=== PATIENT | female | born 1935 | race American Indian/Alaskan Native ===

== ENCOUNTER 2016-09-18 16:28 | Inpatient (IN) | payer MEDICARE ==
--- NOTE | 2016-09-18 17:09 | Emergency Department Report ---
HPI - General Chief Complaint: Dyspnea/Respdistress Time Seen by Provider: 09/18/16 17:01 - HPI HPI: This is a 81-year-old -[place] female who presents to the emergency department from home via EMS with complaint of a one-week history of swelling that is gotten progressively worse from the legs heading up towards the abdomen and chest, as well as a three-day history of some shortness of breath. The patient has a history of CHF, aortic valve replacement, pacemaker, and blindness. She went to see her primary care doctor at [facility], Dr. Tiffanie Davis, and had a chest x-ray done and her Lasix increased. However she has not gotten any improvement. She denies any chest pain, fever, back pain, nausea , vomiting or diaphoresis. She sees [facility] cardiology. No recent travel or sick contacts at home. ED Past Medical Hx - Past Medical History Previous Medical History?: Yes Hx Hypertension: Yes Hx Congestive Heart Failure: Yes Additional medical history: legally blind - Surgical History Past Surgical History?: Yes Hx Pacemaker: Yes Additional Surgical History: valve replacement - Social History Smoking Status: Current Every Day Smoker Substance Use Type: None - Medications Home Medications: Home Medications Medication Instructions Recorded Confirmed Last Taken Type Aspirin [Aspirin BABY CHEW TAB] 81 mg PO QDAY 09/18/16 09/18/16 Unknown History Brimonidine/Timolol 0.2-0.5% 1 drops OP Q12H 09/18/16 09/18/16 Unknown History [Combigan 0.2-0.5%] Carvedilol [Coreg] 6.25 mg PO BID 09/18/16 09/18/16 Unknown History Digoxin 125 mcg PO QDAY 09/18/16 09/18/16 Unknown History Furosemide [Lasix TAB] 60 mg PO QPM 09/18/16 09/18/16 Unknown History Furosemide [Lasix TAB] 80 mg PO QAM 09/18/16 09/18/16 Unknown History Losartan [Cozaar] 100 mg PO QDAY 09/18/16 09/18/16 Unknown History Omeprazole 20 mg PO QDAY 09/18/16 09/18/16 Unknown History Potassium Chloride 10 meq PO QDAY 09/18/16 09/18/16 Unknown History Rosuvastatin Calcium 20 mg PO QDAY 09/18/16 09/18/16 Unknown History amLODIPine [Norvasc] 10 mg PO DAILY 09/18/16 09/18/16 Unknown History hydrALAZINE [Apresoline] 50 mg PO BID 09/18/16 09/18/16 Unknown History ED Review of Systems ROS: Stated complaint: ANANYA Other details as noted in HPI Comment: All other systems reviewed and negative Constitutional: denies: chills, fever Eyes: denies: eye pain, eye discharge, vision change ENT: denies: ear pain, throat pain Respiratory: shortness of breath, SOB with exertion Cardiovascular: edema. denies: palpitations Gastrointestinal: denies: nausea, vomiting Genitourinary: denies: urgency, dysuria, discharge Musculoskeletal: denies: back pain, joint swelling, arthralgia Skin: denies: rash, lesions Neurological: denies: headache, weakness, paresthesias Physical Exam - Physical Exam Vital Signs: Vital Signs 09/18/16 16:35 Temperature 98.4 F Pulse Rate 70 Respiratory 27 H Rate O2 Sat by Pulse 94 Oximetry Physical Exam: GENERAL: The patient is well-developed well-nourished. HEENT: Normocephalic. Atraumatic. Extraocular motions are intact. Patient has moist mucous membranes. NECK: Supple. Trachea is midline. CHEST/LUNGS: Coarse breath sounds throughout the chest. Mild tachypnea but no accessory muscle use. There is no respiratory distress noted. HEART/CARDIOVASCULAR: Regular. There is no tachycardia. There is no gallop rub or murmur. ABDOMEN: Abdomen is soft, nontender. Patient has normal bowel sounds. There is no abdominal distention. SKIN: Skin is warm and dry. 2+ pitting edema to the bilateral lower extremities. Some nonpitting edema to the abdomen. NEURO: The patient is awake, alert, and oriented. The patient is cooperative. The patient has no focal neurologic deficits. The patient has normal speech. MUSCULOSKELETAL: There is no tenderness or deformity. There is no limitation range of motion. There is no evidence of acute injury. ED Course Vital Signs 09/18/16 16:35 Temperature 98.4 F Pulse Rate 70 Respiratory 27 H Rate O2 Sat by Pulse 94 Oximetry ED Medical Decision Making - Lab Data Result diagrams: 09/18/16 17:14 09/18/16 17:14 - EKG Data -: EKG Interpreted by Me - EKG Data When compared to previous EKG there are: previous EKG unavailable Interpretation: other (pacemaker, wide QRS with fusion complexes, nonspecific interventricular block, nonspecific ST-T changes) - Radiology Data Radiology results: image reviewed interpreted by me: Chest x-ray shows moderate cardiomegaly, sternotomy wires seen midline, pulmonary vascular congestion and left basilar pleural effusion - Medical Decision Making 81-year-old female presents with 1 week of progressively worsening swelling for the lower extremities headed upwards. She also has a few days of shortness of breath. She appears to be in CHF. She is volume overloaded. Chest x-ray shows cardiomegaly and some pleural effusions and pulmonary vascular congestion. Patient has some renal insufficiency, mild hyperkalemia, BNP of greater than 35,000 and an elevated troponin. Troponin elevation and level of the BNP may be secondary to the renal insufficiency. Patient started on Lasix for diuresis. She'll be admitted to hospital for continued diuresis and possible cardio consultation. She's been accepted for admission by the hospitalist, Dr. Latham. - Differential Diagnosis CHF, IL, pneumonia, venous stasis Critical Care Time: No Critical care attestation.: If time is entered above; I have spent that time in minutes in the direct care of this critically ill patient, excluding procedure time. ED Disposition Clinical Impression: SOB (shortness of breath), Renal insufficiency, Hyperkalemia CHF (congestive heart failure) Qualifiers: Congestive heart failure type: unspecified congestive heart failure type Congestive heart failure chronicity: unspecified congestive heart failure chronicity Qualified Code(s): I50.9 - Heart failure, unspecified Edema Qualifiers: Edema type: unspecified Qualified Code(s): R60.9 - Edema, unspecified Disposition: OP ADMITTED IP TO THIS HOSP Is pt being admited?: Yes Condition: Stable Referrals: EDVIN BARBOZA [Other] - 3-5 Days Time of Disposition: 19:11
[2016-09-18 17:40] LABS: Basophils % (Auto) 1.9 % (0.0-1.8); Eosinophils % (Auto) 2.6 % (0.0-4.3); Mean Corpuscular HGB Conc 29 % (30-34); Mean Corpuscular Volume 81 fl (79-97); Platelet Count 162 K/mm3 (140-440); Red Cell Distribution Width 19.3 % (13.2-15.2); White Blood Count 5.9 K/mm3 (4.5-11.0)
[2016-09-18 17:41] LABS: Hematocrit 37.1 % (30.3-42.9); Hemoglobin 10.9 gm/dl (10.1-14.3); Mean Corpuscular Hemoglobin 24 pg (28-32)
[2016-09-18 17:48] LABS: Anion Gap 15 mmol/L; Blood Urea Nitrogen 23 mg/dL (7-17); Calcium 8.4 mg/dL (8.4-10.2); Carbon Dioxide 29 mmol/L (22-30); Chloride 108.6 mmol/L (98-107); Glucose 97 mg/dL (65-100); Potassium 5.4 mmol/L (3.6-5.0); Sodium 147 mmol/L (137-145)
[2016-09-18 17:50] LABS: Albumin 3.2 g/dL (3.9-5); Bilirubin,Total 0.5 mg/dL (0.1-1.2); Total Protein 6.5 g/dL (6.3-8.2)
[2016-09-18 17:55] LABS: Bilirubin,Direct 0.2 mg/dL (0-0.2); Bilirubin,Indirect 0.3 mg/dL
[2016-09-18] MEDS ORDERED: BABY ASPIRIN PO ONE (17:56)
[2016-09-18] MEDS ORDERED: LASIX 80 MG in NACL 0.9% 50 ML IV ONE (17:56)
[2016-09-18] MEDS ORDERED: LASIX IV ONE (18:12)
[2016-09-18 18:16] LABS: Bilirubin,Urine NEG (Negative); Blood,Urine NEG (Negative); Ketones,Urine NEG (Negative); Leukocyte Esterase,Urine NEG (Negative); Mucus,Urine FEW /HPF; Nitrite,Urine NEG (Negative); Protein,Urine <15 mg/dL mg/dL (Negative); RBC,Urine < 1.0 /HPF (0.0-6.0); Urobilinogen,Urine < 2.0 mg/dL (<2.0); WBC,Urine < 1.0 /HPF (0.0-6.0)
[2016-09-18 18:25] LABS: Cholesterol 112 mg/dL (50-199); HDL Cholesterol 58 mg/dL (40-59); LDL Cholesterol,Direct 37 mg/dL (50-130); Triglycerides 89 mg/dL (2-149)
--- NOTE | 2016-09-18 19:46 | History and Physical Report ---
History of Present Illness Date of examination: 09/18/16 Date of admission: 09/18/16 Chief complaint: SOB for 1 week History of present illness: Chief complaint: Increasing shortness of breath for 1 week. History of present illness: 81-year-old -[place] female with history of hypertension congestive heart failure valve replacement has been having increasing shortness of breath for 1 week. Patient saw her PMD who increased her Lasix to 80 mg twice a day for couple days and then decrease it to 60 mg twice a day. In spite of the increase in Lasix patient has been getting more and more short of breath. Also shortness of breath on minimal exertion and on lying down. No paroxysmal nocturnal dyspnea. No chest pain. Patient continues to smoke. Patient is blind. No fever no chills. Past History Past Medical History: CAD, GERD, heart failure, hypertension, hyperlipidemia Past Surgical History: Other (valve replacement) Social history: lives with family, smoking (half a pack a day), full code Family history: hypertension Medications and Allergies Allergies Allergy/AdvReac Type Severity Reaction Status Date / Time Sulfa (Sulfonamide Allergy Anaphylaxis Verified 09/18/16 16:46 Antibiotics) Home Medications Medication Instructions Recorded Confirmed Last Taken Type Aspirin [Aspirin BABY CHEW TAB] 81 mg PO QDAY 09/18/16 09/18/16 Unknown History Brimonidine/Timolol 0.2-0.5% 1 drops OP Q12H 09/18/16 09/18/16 Unknown History [Combigan 0.2-0.5%] Carvedilol [Coreg] 6.25 mg PO BID 09/18/16 09/18/16 Unknown History Digoxin 125 mcg PO QDAY 09/18/16 09/18/16 Unknown History Furosemide [Lasix TAB] 60 mg PO QPM 09/18/16 09/18/16 Unknown History Furosemide [Lasix TAB] 80 mg PO QAM 09/18/16 09/18/16 Unknown History Losartan [Cozaar] 100 mg PO QDAY 09/18/16 09/18/16 Unknown History Omeprazole 20 mg PO QDAY 09/18/16 09/18/16 Unknown History Potassium Chloride 10 meq PO QDAY 09/18/16 09/18/16 Unknown History Rosuvastatin Calcium 20 mg PO QDAY 09/18/16 09/18/16 Unknown History amLODIPine [Norvasc] 10 mg PO DAILY 09/18/16 09/18/16 Unknown History hydrALAZINE [Apresoline] 50 mg PO BID 09/18/16 09/18/16 Unknown History Active Meds: Active Medications Heparin Sodium (Porcine) (Heparin) 5,000 unit SUB-Q Q12HR RAJWINDER Review of Systems Constitutional: no weight loss, no weight gain Ears, nose, mouth and throat: no sore throat, no odynophagia Breasts: deferred Cardiovascular: orthopnea, edema, shortness of breath, dyspnea on exertion, leg edema, no chest pain, no paroxysmal nocturnal dyspnea Respiratory: shortness of breath, dyspnea on exertion, congestion, no cough with sputum Gastrointestinal: no nausea, no vomiting, no diarrhea Genitourinary Female: no urinary frequency, no urgency, no stress incontinence, no post void dribbling, no urge incontinence Menstruation: ammenorrhea Musculoskeletal: no neck stiffness, no neck pain Integumentary: no rash, no pruritis, no redness Neurological: no seizures, no syncope Psychiatric: no anxiety Endocrine: no cold intolerance, no heat intolerance Hematologic/Lymphatic: no easy bruising, no easy bleeding Allergic/Immunologic: no urticaria, no allergic rhinitis, no wheezing Exam - Constitutional Vitals: Temp Pulse Resp BP Pulse Ox 98.4 F 67 22 137/69 98 09/18/16 16:35 09/18/16 19:10 09/18/16 19:10 09/18/16 19:10 09/18/16 19:10 General appearance: Present: no acute distress, well-nourished - EENT Eyes: Present: PERRL ENT: hearing intact, clear oral mucosa - Neck Neck: Present: supple, normal ROM - Respiratory Respiratory effort: normal Respiratory: bilateral: CTA, rales - Cardiovascular Rhythm: regular Heart Sounds: Present: S1 & S2. Absent: rub, click - Extremities Extremities: pulses symmetrical, No edema Extremity abnormal: edema (bilateral pedal edema present 3+.) Peripheral Pulses: within normal limits - Abdominal General gastrointestinal: Present: soft, non-tender, non-distended, normal bowel sounds Female genitourinary: Present: normal - Integumentary Integumentary: Present: clear, warm, dry - Musculoskeletal Musculoskeletal: gait normal, strength equal bilaterally - Psychiatric Psychiatric: appropriate mood/affect, intact judgment & insight - Neurologic Neurologic: CNII-XII intact, moves all extremities - Allied Health Allied health notes reviewed: nursing Results - Labs CBC & Chem 7: 09/18/16 17:14 09/18/16 17:14 Labs: Laboratory Last Values WBC 5.9 K/mm3 (4.5-11.0) 09/18/16 17:14 RBC 4.60 M/mm3 (3.65-5.03) 09/18/16 17:14 Hgb 10.9 gm/dl (10.1-14.3) 09/18/16 17:14 Hct 37.1 % (30.3-42.9) 09/18/16 17:14 MCV 81 fl (79-97) 09/18/16 17:14 MCH 24 pg (28-32) L 09/18/16 17:14 MCHC 29 % (30-34) L 09/18/16 17:14 RDW 19.3 % (13.2-15.2) H 09/18/16 17:14 Plt Count 162 K/mm3 (140-440) 09/18/16 17:14 Lymph % (Auto) 29.2 % (13.4-35.0) 09/18/16 17:14 [place] % (Auto) 15.8 % (0.0-7.3) H 09/18/16 17:14 Eos % (Auto) 2.6 % (0.0-4.3) 09/18/16 17:14 Baso % (Auto) 1.9 % (0.0-1.8) H 09/18/16 17:14 Lymph # 1.7 K/mm3 (1.2-5.4) 09/18/16 17:14 [place] # 0.9 K/mm3 (0.0-0.8) H 09/18/16 17:14 Eos # 0.2 K/mm3 (0.0-0.4) 09/18/16 17:14 Baso # 0.1 K/mm3 (0.0-0.1) 09/18/16 17:14 Seg Neutrophils % 50.5 % (40.0-70.0) 09/18/16 17:14 Seg Neutrophils # 3.0 K/mm3 (1.8-7.7) 03/12/17 17:14 Sodium 147 mmol/L (137-145) H 09/18/16 17:14 Potassium 5.4 mmol/L (3.6-5.0) H 09/18/16 17:14 Chloride 108.6 mmol/L (98-107) H 09/18/16 17:14 Carbon Dioxide 29 mmol/L (22-30) 09/18/16 17:14 Anion Gap 15 mmol/L 09/18/16 17:14 BUN 23 mg/dL (7-17) H 09/18/16 17:14 Creatinine 2.3 mg/dL (0.7-1.2) H 09/18/16 17:14 Estimated GFR 25 ml/min 09/18/16 17:14 BUN/Creatinine Ratio 10.00 % 09/18/16 17:14 Glucose 97 mg/dL (65-100) 09/18/16 17:14 Calcium 8.4 mg/dL (8.4-10.2) 09/18/16 17:14 Total Bilirubin 0.5 mg/dL (0.1-1.2) 09/18/16 17:14 Direct Bilirubin 0.2 mg/dL (0-0.2) 09/18/16 17:14 Indirect Bilirubin 0.3 mg/dL 09/18/16 17:14 AST 14 units/L (5-40) 09/18/16 17:14 ALT 7 units/L (7-56) 09/18/16 17:14 Alkaline Phosphatase 45 units/L (35-129) 09/18/16 17:14 Troponin T 0.139 ng/mL (0.00-0.029) H* 09/18/16 17:14 NT-Pro-B Natriuret Pep > 83411 pg/mL (0-900) H 09/18/16 17:14 Total Protein 6.5 g/dL (6.3-8.2) 09/18/16 17:14 Albumin 3.2 g/dL (3.9-5) L 09/18/16 17:14 Albumin/Globulin Ratio 1.0 % 09/18/16 17:14 Triglycerides 89 mg/dL (2-149) 09/18/16 17:14 Cholesterol 112 mg/dL (50-199) 09/18/16 17:14 LDL Cholesterol Direct 37 mg/dL (50-130) L 09/18/16 17:14 HDL Cholesterol 58 mg/dL (40-59) 09/18/16 17:14 Cholesterol/HDL Ratio 1.93 % 09/18/16 17:14 Urine Color Yellow (Yellow) 09/18/16 18:05 Urine Turbidity Slightly-cloudy (Clear) 09/18/16 18:05 Urine pH 5.0 (5.0-7.0) 09/18/16 18:05 Ur Specific Agness 1.008 (1.003-1.030) 09/18/16 18:05 Urine Protein <15 mg/dl mg/dL (Negative) 09/18/16 18:05 Urine Glucose (UA) Neg mg/dL (Negative) 09/18/16 18:05 Urine Ketones Neg mg/dL (Negative) 09/18/16 18:05 Urine Blood Neg (Negative) 09/18/16 18:05 Urine Nitrite Neg (Negative) 09/18/16 18:05 Urine Bilirubin Neg (Negative) 09/18/16 18:05 Urine Urobilinogen < 2.0 mg/dL (<2.0) 09/18/16 18:05 Ur Leukocyte Esterase Neg (Negative) 09/18/16 18:05 Urine WBC (Auto) < 1.0 /HPF (0.0-6.0) 09/18/16 18:05 Urine RBC (Auto) < 1.0 /HPF (0.0-6.0) 09/18/16 18:05 U Epithel Cells (Auto) < 1.0 /HPF (0-13.0) 09/18/16 18:05 Urine Mucus Few /HPF 09/18/16 18:05 Short CBC 09/18/16 Range/Units 17:14 WBC 5.9 (4.5-11.0) K/mm3 Hgb 10.9 (10.1-14.3) gm/dl Hct 37.1 (30.3-42.9) % Plt Count 162 (140-440) K/mm3 BMP 09/18/16 17:14 Sodium 147 H Potassium 5.4 H Chloride 108.6 H Carbon Dioxide 29 BUN 23 H Creatinine 2.3 H Glucose 97 Calcium 8.4 Cardiac Enzymes 09/18/16 Range/Units 17:14 Troponin T 0.139 H* (0.00-0.029) ng/mL Liver Function 09/18/16 Range/Units 17:14 Total Bilirubin 0.5 (0.1-1.2) mg/dL Direct Bilirubin 0.2 (0-0.2) mg/dL AST 14 (5-40) units/L ALT 7 (7-56) units/L Alkaline Phosphatase 45 (35-129) units/L Albumin 3.2 L (3.9-5) g/dL Urine 09/18/16 Range/Units 18:05 Urine Color Yellow (Yellow) Urine pH 5.0 (5.0-7.0) Ur Specific [place] 1.008 (1.003-1.030) Urine Protein <15 mg/dl (Negative) mg/dL Urine Glucose (UA) Neg (Negative) mg/dL - Imaging and Cardiology EKG: report reviewed Chest x-ray: report reviewed (chest x-ray consistent with congestive heart failure pulmonary vascular congestion.) Assessment and Plan Advance Directives: Yes (full code) VTE prophylaxis?: Chemical Plan of care discussed with patient/family: Yes - Patient Problems (1) Acute exacerbation of CHF (congestive heart failure) Current Visit: Yes Status: Acute Qualifiers: Congestive heart failure type: combined Qualified Code(s): I50.43 - Acute on chronic combined systolic (congestive) and diastolic (congestive) heart failure Plan to address problem: Echocardiogram ordered for LV function and valve function. Lasix IV 80 mg every 12 started. Patient already has high sodium level of 147 and BUN and creatinine are also elevated. We will defer to battery wrecker operator to optimize the Lasix dosage. Also a renal consultation to address the creatinine of 2.3. Potassium level is high. Because of the increased Lasix dose of 80 mg IV every 12 hours I have added KCl 20 mEq. Recheck the potassium level and decrease of potassium supplement if necessary (2) Hyperkalemia Current Visit: Yes Status: Acute Plan to address problem: Patient is on Lasix IV 80 mg every 12 hours. That should correct the potassium level. We will decrease the KCl 20 mEq every 12 if necessary. (3) Renal insufficiency Current Visit: Yes Status: Acute Plan to address problem: Renal consultation. (4) Hypertension Current Visit: Yes Status: Chronic Qualifiers: Hypertension type: essential hypertension Qualified Code(s): I10 - Essential (primary) hypertension Plan to address problem: Continue her antihypertensives. Blood pressure under good control. We will adjust the medication if necessary. (5) Hypernatremia Current Visit: Yes Status: Acute Plan to address problem: Will decrease the Lasix dose once symptoms are improved in Couple of days. (6) Elevated troponin level Current Visit: Yes Status: Acute Plan to address problem: Secondary to renal insufficiency. No stress test at this point. (7) DVT prophylaxis Current Visit: Yes Status: Acute Plan to address problem: patient on Lovenox 40 mg subcutaneous daily.
[2016-09-18] MEDS ORDERED: ZOFRAN IV PRN (19:56)
[2016-09-18] MEDS ORDERED: PERCOCET 5/325 PO PRN (19:56)
[2016-09-18] MEDS ORDERED: TYLENOL PO PRN (19:56)
[2016-09-18] MEDS ORDERED: DULCOLAX PR PRN (19:56)
[2016-09-18] MEDS ORDERED: DILAUDID IV PRN (19:56)
[2016-09-18] MEDS ORDERED: MILK OF MAGNESIA PO PRN (19:56)
[2016-09-18] MEDS ORDERED: NON-FORMULARY (Potassium Chloride [Potassium Chloride] 20 MEQ) PO SCH (20:15)
[2016-09-18] MEDS ORDERED: NON-FORMULARY (Losartan [Cozaar] 100 MG) PO SCH (20:15)
[2016-09-18] MEDS: BABY ASPIRIN PO SCH (21:30)
[2016-09-18] MEDS ORDERED: HEPARIN SUB-Q SCH (22:00)
[2016-09-18] MEDS ORDERED: PEPCID PO SCH (22:00)
[2016-09-18] MEDS: LANOXIN PO SCH (22:49)
[2016-09-18] MEDS: COZAAR PO SCH (22:50)
[2016-09-18] MEDS: PEPCID PO SCH (22:50)
[2016-09-18] MEDS: COREG PO SCH (22:51)
[2016-09-18] MEDS: NORVASC PO SCH (22:52)
[2016-09-18] MEDS: APRESOLINE PO SCH (22:52)
[2016-09-18] MEDS: COMBIGAN 0.2-0.5% OU SCH (22:52)
[2016-09-19] MEDS: LASIX IV SCH ×2 (05:13→18:23)
[2016-09-19 06:00] LABS: Eosinophils % (Auto) 1.4 % (0.0-4.3); Mean Corpuscular HGB Conc 29 % (30-34); Mean Corpuscular Volume 80 fl (79-97); Platelet Count 158 K/mm3 (140-440); Red Blood Count 4.43 M/mm3 (3.65-5.03); Red Cell Distribution Width 19.5 % (13.2-15.2); White Blood Count 6.3 K/mm3 (4.5-11.0)
[2016-09-19] MEDS ORDERED: LASIX IV SCH (06:00)
[2016-09-19 06:02] LABS: Hematocrit 34.1 % (30.3-42.9); Hemoglobin 10.3 gm/dl (10.1-14.3); Mean Corpuscular Hemoglobin 23 pg (28-32)
[2016-09-19 06:23] LABS: Albumin 2.9 g/dL (3.9-5); BUN/Creatinine Ratio 10.43; Bilirubin,Total 0.6 mg/dL (0.1-1.2); Calcium 8.1 mg/dL (8.4-10.2); Chloride 105.8 mmol/L (98-107); Potassium 4.6 mmol/L (3.6-5.0); Total Protein 5.8 g/dL (6.3-8.2)
--- NOTE | 2016-09-19 08:51 | Consultation ---
History of Present Illness Consult date: 09/19/16 Requesting physician: MISHEL KOVACS Consult reason: congestive heart failure History of present illness: The patient is an 81 year old female who is followed by Dr. Kauffman in the office with a history of chronic systolic heart failure, mitral and tricuspid valve repair (2012), SSS s/p pacemaker, hypertension who presented with complaints of worsening shortness of breath, dyspnea on exertion and lower extremity edema over the past one week. She states that he PCP recently increased her lasix but she did not see an improvement in her symptoms. She denies any chest pain, palpitations, nausea, vomiting or diaphoresis. Troponin level is mildly elevated. BNP > 74359. BUN 23 with a creatinine of 2.4. Echo done 07/2014 showed EF 25-30%, diastolic dysfunction. Past History Past Medical History: heart failure, hypertension, hyperlipidemia, other (SSS s/ p pacemaker) Past Surgical History: Other (mitral and tricuspid valve repair (2012), pacemaker implantation ) Social history: lives with family, smoking (half a pack a day), full code. denies: alcohol abuse, prescription drug abuse, IV drug use Family history: hypertension Medications and Allergies Allergies Allergy/AdvReac Type Severity Reaction Status Date / Time Sulfa (Sulfonamide Allergy Anaphylaxis Verified 09/18/16 16:46 Antibiotics) Home Medications Medication Instructions Recorded Confirmed Last Taken Type Aspirin [Aspirin BABY CHEW TAB] 81 mg PO QDAY 09/18/16 09/18/16 Unknown History Brimonidine/Timolol 0.2-0.5% 1 drops OP Q12H 09/18/16 09/18/16 Unknown History [Combigan 0.2-0.5%] Carvedilol [Coreg] 6.25 mg PO BID 09/18/16 09/18/16 Unknown History Digoxin 125 mcg PO QDAY 09/18/16 09/18/16 Unknown History Furosemide [Lasix TAB] 60 mg PO QPM 09/18/16 09/18/16 Unknown History Furosemide [Lasix TAB] 80 mg PO QAM 09/18/16 09/18/16 Unknown History Losartan [Cozaar] 100 mg PO QDAY 09/18/16 09/18/16 Unknown History Omeprazole 20 mg PO QDAY 09/18/16 09/18/16 Unknown History Potassium Chloride 10 meq PO QDAY 09/18/16 09/18/16 Unknown History Rosuvastatin Calcium 20 mg PO QDAY 09/18/16 09/18/16 Unknown History amLODIPine [Norvasc] 10 mg PO DAILY 09/18/16 09/18/16 Unknown History hydrALAZINE [Apresoline] 50 mg PO BID 09/18/16 09/18/16 Unknown History Active Meds: Active Medications Acetaminophen (Tylenol) 650 mg PO Q4H PRN PRN Reason: Pain MILD(1-3)/Fever >100.5/GURROLA Amlodipine Besylate (Norvasc) 10 mg PO DAILY [facility] Last Admin: 09/18/16 22:52 Dose: 10 mg Aspirin (Baby Aspirin) 81 mg PO QDAY [facility] Last Admin: 09/18/16 21:30 Dose: Not Given Atorvastatin Calcium (Lipitor) 40 mg PO QHS [facility] Last Admin: 09/18/16 22:50 Dose: 40 mg Bisacodyl (Dulcolax) 10 mg [place] QDAY PRN PRN Reason: Constipation unrelieved by MOM Brimonidine/Timolol (Combigan 0.2-0.5%) 1 drops OU Q12HR [facility] Last Admin: 09/18/16 22:52 Dose: Not Given Carvedilol (Coreg) 6.25 mg PO BID [facility] Last Admin: 09/18/16 22:51 Dose: 6.25 mg Digoxin (Lanoxin) 0.125 mg PO QDAY [facility] Last Admin: 09/18/16 22:49 Dose: 0.125 mg Enoxaparin Sodium (Lovenox) 30 mg SUB-Q QDAY [facility] Famotidine (Pepcid) 10 mg PO BID [facility] Last Admin: 09/18/16 22:50 Dose: 10 mg Furosemide (Lasix) 80 mg IV 0600,1800 [facility] Last Admin: 09/19/16 05:13 Dose: 80 mg Hydralazine HCl (Apresoline) 50 mg PO BID [facility] Last Admin: 09/18/16 22:52 Dose: 50 mg Hydromorphone HCl (Dilaudid) 0.5 mg IV Q3H PRN PRN Reason: Pain , Severe (7-10) Losartan Potassium (Cozaar) 100 mg PO QDAY [facility] Last Admin: 09/18/16 22:50 Dose: 100 mg Magnesium Hydroxide (Milk Of Magnesia) 30 ml PO Q4H PRN PRN Reason: Constipation Ondansetron HCl (Zofran) 4 mg IV Q8H PRN PRN Reason: N/V unrelieved by Reglan Oxycodone/Acetaminophen (Percocet 5/325) 1 tab PO Q6H PRN PRN Reason: Pain, Moderate (4-6) Review of Systems Constitutional: no fever, no chills Ears, nose, mouth and throat: no nasal congestion, no nasal discharge, no sinus pressure Cardiovascular: orthopnea, shortness of breath, dyspnea on exertion, leg edema, no chest pain, no palpitations Respiratory: shortness of breath, dyspnea on exertion, no cough, no congestion, no wheezing Gastrointestinal: no abdominal pain, no nausea, no vomiting, no diarrhea, no melena Genitourinary Female: no dysuria, no urgency Musculoskeletal: no neck stiffness, no neck pain, no myalgias Integumentary: no rash, no pruritis Neurological: no parathesias, no numbness, no tingling, no headaches Endocrine: no cold intolerance, no heat intolerance Hematologic/Lymphatic: no easy bruising, no easy bleeding Allergic/Immunologic: no urticaria, no wheezing Physical Examination Last Vital Signs Temp 97.6 F 09/19/16 12:16 Pulse 80 09/19/16 12:16 Resp 18 09/19/16 12:16 BP 119/69 09/19/16 12:16 Pulse Ox 100 09/19/16 12:16 General appearance: no acute distress HEENT: Positive: Normocephaly, Mucus Membranes Moist Neck: Positive: neck supple, trachea midline Cardiac: Positive: Reg Rate and Rhythm, S1/S2 Lungs: Positive: clear to auscultation Neuro: Positive: Grossly Intact Abdomen: Positive: Soft, Active Bowel Sounds. Negative: Tender Skin: Positive: Clear. Negative: Rash Extremities: Present: +2 Edema Results 09/19/16 05:09 09/19/16 05:09 Cardiac Enzymes 09/19/16 Range/Units 05:09 AST 11 (5-40) units/L CBC 09/19/16 Range/Units 05:09 WBC 6.3 (4.5-11.0) K/mm3 RBC 4.43 (3.65-5.03) M/mm3 Hgb 10.3 (10.1-14.3) gm/dl Hct 34.1 (30.3-42.9) % Plt Count 158 (140-440) K/mm3 Lymph # 1.8 (1.2-5.4) K/mm3 [place] # 0.9 H (0.0-0.8) K/mm3 Eos # 0.1 (0.0-0.4) K/mm3 Baso # 0.1 (0.0-0.1) K/mm3 Comprehensive Metabolic Panel 09/19/16 Range/Units 05:09 Sodium 145 (137-145) mmol/L Potassium 4.6 (3.6-5.0) mmol/L Chloride 105.8 (98-107) mmol/L Carbon Dioxide 29 (22-30) mmol/L BUN 24 H (7-17) mg/dL Creatinine 2.3 H (0.7-1.2) mg/dL Glucose 78 (65-100) mg/dL Calcium 8.1 L (8.4-10.2) mg/dL AST 11 (5-40) units/L ALT 6 L (7-56) units/L Alkaline Phosphatase 41 (35-129) units/L Total Protein 5.8 L (6.3-8.2) g/dL Albumin 2.9 L (3.9-5) g/dL - Imaging and Cardiology Echo: pending EKG: image reviewed EKG interpretations - Telemetry EKG Rhythm: Paced Pacemaker: ventricular pacing w/capt Assessment and Plan Acute on chronic systolic heart failure Echo 07/2014: EF 25-30%, diastolic dysfunction, await repeat continue IV lasix, coreg, losartan Elevated troponin no chest pain likely due to decompensated HF/renal insufficiency Hx. of mitral and tricuspid valve repair (2012) Acute on chronic kidney failure cautious diuresis monitor renal indices await nephrology evaluation SSS s/p pacemaker (2012) Hypertension Tobacco abuse Await echo findings. Continue current management and close monitoring of volume status and renal indices. The patient has been seen in conjunction with Dr. Ruiz who agrees with the assessment and plan of care.
--- NOTE | 2016-09-19 09:22 | XRay Report ---
PORTABLE CHEST INDICATION: Shortness of breath. COMPARISON: 02/19/2013 FINDINGS: Portable, frontal chest radiograph again demonstrates mild to moderate cardiomegaly, sternotomy wires, prosthetic heart valve and left sided pacemaker with dual chamber leads. Left midlung horizontal atelectasis or scarring again noted as also mild fluid or thickening along the right minor fissure. Slight increased lung markings centrally. Poor left lower lung penetration as well with subtle underlying consolidation or fluid now not entirely excluded. Left hemidiaphragm not well-seen. No large right pleural effusion. EKG leads. Demineralized bones with few degenerative changes. CONCLUSION: Slight increased lung markings centrally, possibly technical versus early congestive. Various other findings again seen, as described above. Please correlate. Thank you for the opportunity to participate in this patient's care.
[2016-09-19] MEDS ORDERED: NON-FORMULARY (Rosuvastatin Calcium [Rosuvastatin Calcium] 20 MG) PO SCH (10:00)
[2016-09-19] MEDS ORDERED: NON-FORMULARY (Omeprazole [Omeprazole] 20 MG) PO SCH (10:00)
[2016-09-19] MEDS ORDERED: LOVENOX SUB-Q SCH (10:00)
--- NOTE | 2016-09-19 12:18 | Admit Criteria Form ---
Admission Criteria Documentation: HEART FAILURE: COMMON COMPLICATIONS Clinical Indications for Inpatient Care (Place 'X' for any and all applicable criteria): Ongoing inpatient care may be indicated for heart failure with ANY ONE of the following (1)(2)(3)(4)(5): [ ]I. Ongoing need for care for primary condition requiring frequent therapy adjustments because of changes in cardiac function (eg, drug dosage changes for drugs that are renally metabolized) [ ]II. New-onset heart failure [ ]III. Heart failure with decreased urine output not responsive to attempts to optimize volume status [ ]IV. Acute cardiac ischemia causing or associated with failure [X]V. Complications of heart failure, including ANY ONE of the following: [ ]a) Pericardial effusion [ ]b) Symptomatic pleural effusion [ ]c) O2 saturation <90% or PO2 < 60 mm Hg (8.0 kPa) on room air or require baseline supplemental O2 [ ]d) Tachypnea [ ]e) Dyspnea [ ]f) Syncope [ ]g) Change in mental status [ ]h) Acute renal insufficiency that is severe (reduction of more than 50% in estimated glomerular filtration rate from baseline) or progressive reduction of more than 25% in estimated glomerular filtration rate from baseline, with creatinine continuing to rise) [ ]i) Hemodynamic instability [X]j) Anasarca [ ]k) Clinically significant metabolic abnormalities due to heart failure (eg, new-onset metabolic acidosis) Extended stay beyond goal length of stay for primary condition may be needed until ALL of the following are present(1)(3): [ ]a) Stable and effective diuretic regimen established (or patient on stable dialysis regimen if in chronic renal failure) [ ]b) Breathing comfortably at rest [ ]c) Saturation of arterial oxygen greater than 90% or at acceptable baseline [ ]d) Pulmonary edema absent or improved [ ]e) Hemodynamic stability [ ]f) Volume status acceptable on oral medication [ ]g) Peripheral or sacral edema absent or improved [ ]h) Renal function stable and manageable at a lower level of care [ ]i) Complications (eg, pleural effusion) resolved or manageable at a lower level of care [ ]j) Patient or caregiver has received written discharge instructions or educational material addressing activity level, diet, discharge medications, follow-up appointment, weight monitoring, and what to do if symptoms worsen The original [employer] [facility] content created by [facility] has been revised. The portions of the content which have been revised are identified through the use of italic text or in bold, and [facility] has neither reviewed nor approved the modified material.All other unmodified content is copyright [facility]. Please see references footnoted in the original [facility] edition 2016 Admission Criteria Met: Yes
[2016-09-19 12:47] LABS: Creatine Kinase MB 2.6 ng/mL (0.0-4.0)
[2016-09-19] MEDS: COZAAR PO SCH (14:09)
--- NOTE | 2016-09-19 14:09 | Progress Note ---
Assessment and Plan Assessment and plan: Patient is a pleasant 81-year-old -E[place] female with history of hypertension congestive heart failure valve replacement has been having increasing shortness of breath for 1 week. She increased her Lasix to 80 mg twice daily for couple of days and then saw her PMD who then decrease it to 60 mg twice a day. In spite of the increase in Lasix patient has been getting more and more short of breath. Also shortness of breath on minimal exertion and on lying down. No paroxysmal nocturnal dyspnea. No chest pain. Patient continues to smoke. Patient is blind. No fever no chills. * Acute on chronic systolic congestive heart failure. Last echo in 2014 shows EF of 25-30% * Hyperkalemia * Acute kidney injury likely secondary to visible to nephropathy present on admission * Hypertension * Hypernatremia * Elevated troponin likely secondary to decompensated heart failure and renal insufficiency * Sick sinus syndrome status post pacemaker * Tobacco abuse extensive counseling provided to the patient admitted to quit. Plan * Continue inpatient care, cardiology input noted. We'll continue IV lasix, coreg, losartan * Monitor potassium closely and ensure correction. * Await nephrology consultation. * I discussed with nursing staff to get patient out of bed to chair she does ambulate with a cane if need be we'll get physical therapy consultation. * Monitor sodium * DVT and GI prophylaxis * Plan of care discussed with the patient in detail she verbalizes understanding * No family member present and bed side History Interval history: Follow-up shortness of breath Patient seen and examined this morning in no acute distress, reports improvement in her shortness of breath but not yet at baseline. Denies any chest pain, nausea, vomiting, diarrhea No fever noted blood pressure controlled No adverse events reported to me by nursing staff Hospitalist Physical - Physical exam Narrative exam: VITAL SIGNS: Reviewed. GENERAL: The patient appeared well nourished and normally developed. Vital signs as documented. HEAD: No signs of head trauma. EYES: Pupils are equal. Extraocular motions intact. EARS: Hearing grossly intact. MOUTH: Oropharynx is normal. NECK: No adenopathy, no JVD. CHEST: Chest with crackles breath sounds bilaterally. No wheezes. CARDIAC: Regular rate and rhythm. S1 and S2, without murmurs, gallops, or rubs. VASCULAR: 1+ pitting Edema. Peripheral pulses normal and equal in all extremities. ABDOMEN: Soft, without detectable tenderness. No sign of distention. No rebound or guarding, and no masses palpated. Bowel Sounds normal. MUSCULOSKELETAL: Moving all extremities.. Extremities without clubbing, cyanosis and 1+ pitting edema noted bilateral lower extremity NEUROLOGIC EXAM: Alert and oriented x 3. No focal sensory or strength deficits. Speech normal. Follows commands. Ambulates with a cane PSYCHIATRIC: Mood normal. SKIN: No rash or lesions. - Constitutional Vitals: Temp Pulse Resp BP Pulse Ox 97.6 F 80 18 119/69 100 09/19/16 12:16 09/19/16 12:16 09/19/16 12:16 09/19/16 12:16 09/19/16 12:16 General appearance: Present: no acute distress Results - Labs CBC & Chem 7: 09/19/16 05:09 09/19/16 05:09 Labs: Laboratory Last Values WBC 6.3 K/mm3 (4.5-11.0) 09/19/16 05:09 RBC 4.43 M/mm3 (3.65-5.03) 09/19/16 05:09 Hgb 10.3 gm/dl (10.1-14.3) 09/19/16 05:09 Hct 34.1 % (30.3-42.9) 09/19/16 05:09 MCV 80 fl (79-97) 09/19/16 05:09 MCH 23 pg (28-32) L 09/19/16 05:09 MCHC 29 % (30-34) L 09/19/16 05:09 RDW 19.5 % (13.2-15.2) H 09/19/16 05:09 Plt Count 158 K/mm3 (140-440) 09/19/16 05:09 Lymph % (Auto) 29.3 % (13.4-35.0) 09/19/16 05:09 Rabun % (Auto) 14.7 % (0.0-7.3) H 09/19/16 05:09 Eos % (Auto) 1.4 % (0.0-4.3) 09/19/16 05:09 Baso % (Auto) 1.0 % (0.0-1.8) 09/19/16 05:09 Lymph # 1.8 K/mm3 (1.2-5.4) 09/19/16 05:09 Rabun # 0.9 K/mm3 (0.0-0.8) H 09/19/16 05:09 Eos # 0.1 K/mm3 (0.0-0.4) 09/19/16 05:09 Baso # 0.1 K/mm3 (0.0-0.1) 09/19/16 05:09 Seg Neutrophils % 53.6 % (40.0-70.0) 09/19/16 05:09 Seg Neutrophils # 3.4 K/mm3 (1.8-7.7) 09/19/16 05:09 Sodium 145 mmol/L (137-145) 09/19/16 05:09 Potassium 4.6 mmol/L (3.6-5.0) 09/19/16 05:09 Chloride 105.8 mmol/L (98-107) 09/19/16 05:09 Carbon Dioxide 29 mmol/L (22-30) 09/19/16 05:09 Anion Gap 15 mmol/L 09/19/16 05:09 BUN 24 mg/dL (7-17) H 09/19/16 05:09 Creatinine 2.3 mg/dL (0.7-1.2) H 09/19/16 05:09 Estimated GFR 25 ml/min 09/19/16 05:09 BUN/Creatinine Ratio 10.43 % 09/19/16 05:09 Glucose 78 mg/dL (65-100) 09/19/16 05:09 Hemoglobin A1c 5.9 % (4-6) 09/18/16 17:14 Calcium 8.1 mg/dL (8.4-10.2) L 09/19/16 05:09 Total Bilirubin 0.6 mg/dL (0.1-1.2) 09/19/16 05:09 Direct Bilirubin 0.2 mg/dL (0-0.2) 09/18/16 17:14 Indirect Bilirubin 0.3 mg/dL 09/18/16 17:14 AST 11 units/L (5-40) 09/19/16 05:09 ALT 6 units/L (7-56) L 09/19/16 05:09 Alkaline Phosphatase 41 units/L (35-129) 09/19/16 05:09 Total Creatine Kinase 74 units/L (30-135) 09/19/16 11:58 CK-MB (CK-2) 2.6 ng/mL (0.0-4.0) 09/19/16 11:58 CK-MB (CK-2) Rel Index 3.5 (0-4) 09/19/16 11:58 Troponin T 0.114 ng/mL (0.00-0.029) H* 09/19/16 11:58 NT-Pro-B Natriuret Pep > 38393 pg/mL (0-900) H 09/18/16 17:14 Total Protein 5.8 g/dL (6.3-8.2) L 09/19/16 05:09 Albumin 2.9 g/dL (3.9-5) L 09/19/16 05:09 Albumin/Globulin Ratio 1.0 % 09/19/16 05:09 Triglycerides 89 mg/dL (2-149) 09/18/16 17:14 Cholesterol 112 mg/dL (50-199) 09/18/16 17:14 LDL Cholesterol Direct 37 mg/dL (50-130) L 09/18/16 17:14 HDL Cholesterol 58 mg/dL (40-59) 09/18/16 17:14 Cholesterol/HDL Ratio 1.93 % 09/18/16 17:14 Urine Color Yellow (Yellow) 09/18/16 18:05 Urine Turbidity Slightly-cloudy (Clear) 09/18/16 18:05 Urine pH 5.0 (5.0-7.0) 09/18/16 18:05 Ur Specific [place] 1.008 (1.003-1.030) 09/18/16 18:05 Urine Protein <15 mg/dl mg/dL (Negative) 09/18/16 18:05 Urine Glucose (UA) Neg mg/dL (Negative) 09/18/16 18:05 Urine Ketones Neg mg/dL (Negative) 09/18/16 18:05 Urine Blood Neg (Negative) 09/18/16 18:05 Urine Nitrite Neg (Negative) 09/18/16 18:05 Urine Bilirubin Neg (Negative) 09/18/16 18:05 Urine Urobilinogen < 2.0 mg/dL (<2.0) 09/18/16 18:05 Ur Leukocyte Esterase Neg (Negative) 09/18/16 18:05 Urine WBC (Auto) < 1.0 /HPF (0.0-6.0) 09/18/16 18:05 Urine RBC (Auto) < 1.0 /HPF (0.0-6.0) 09/18/16 18:05 U Epithel Cells (Auto) < 1.0 /HPF (0-13.0) 09/18/16 18:05 Urine Mucus Few /HPF 09/18/16 18:05 - Imaging and Cardiology Chest x-ray: image reviewed (vascular congestion)
[2016-09-19] MEDS: NORVASC PO SCH (14:10)
[2016-09-19] MEDS: APRESOLINE PO SCH ×2 (14:10→22:41)
[2016-09-19] MEDS: BABY ASPIRIN PO SCH (14:10)
[2016-09-19] MEDS: COREG PO SCH ×2 (14:10→22:40)
[2016-09-19] MEDS: LANOXIN PO SCH (14:10)
[2016-09-19] MEDS: PEPCID PO SCH ×2 (14:10→22:41)
[2016-09-19] MEDS: COMBIGAN 0.2-0.5% OU SCH ×2 (14:10→22:43)
[2016-09-19] MEDS: LOVENOX SUB-Q SCH (16:00)
[2016-09-19 19:17] LABS: Creatine Kinase MB 2.8 ng/mL (0.0-4.0)
[2016-09-20 05:22] LABS: Mean Corpuscular HGB Conc 29 % (30-34); Mean Corpuscular Volume 81 fl (79-97); Platelet Count 152 K/mm3 (140-440); Red Blood Count 4.35 M/mm3 (3.65-5.03); Red Cell Distribution Width 19.4 % (13.2-15.2); White Blood Count 6.6 K/mm3 (4.5-11.0)
[2016-09-20] MEDS: LASIX IV SCH ×2 (05:37→10:48)
[2016-09-20 05:39] LABS: BUN/Creatinine Ratio 11.36; Calcium 8.1 mg/dL (8.4-10.2); Chloride 102.8 mmol/L (98-107)
[2016-09-20 05:49] LABS: Hemoglobin 10.3 gm/dl (10.1-14.3); Mean Corpuscular Hemoglobin 24 pg (28-32)
[2016-09-20 05:51] LABS: Hematocrit 34.3 % (30.3-42.9)
--- NOTE | 2016-09-20 07:12 | Consultation ---
History of Present Illness - Reason for Consult Consult date: 09/20/16 Requesting physician: BRADLY ZAPATA - History of Present Illness 81-year-old -Norwegian female with a history of congestive heart failure, hypertension admitted on account of 1 week history of progressively worsening shortness of breath. Patient also complains of swelling of the extremities and abdominal wall. She denies any cough, sputum or hemoptysis. No wheezing. She denies any dizziness. She admits that she was poorly compliant with her Lasix for some time before the onset of her symptoms. She went to see her primary care physician and Lasix was increased to 80 mg twice daily but symptoms did not improve and so she was brought to the hospital for further evaluation. On further inquiry, she also admits to poor adherence to low sodium diet. 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 denies: alcohol abuse, prescription drug abuse, IV drug use Family history: cancer (Brother of cancer), hypertension, other (father in a motor vehicle accident in his 50s. Mother at age 83 patient does not recall the cause of ) Medications and Allergies Allergies Allergy/AdvReac Type Severity Reaction Status Date / Time Sulfa (Sulfonamide Allergy Anaphylaxis Verified 09/18/16 16:46 Antibiotics) Home Medications Medication Instructions Recorded Confirmed Last Taken Type Aspirin [Aspirin BABY CHEW TAB] 81 mg PO QDAY 09/18/16 09/18/16 Unknown History Brimonidine/Timolol 0.2-0.5% 1 drops OP Q12H 09/18/16 09/18/16 Unknown History [Combigan 0.2-0.5%] Carvedilol [Coreg] 6.25 mg PO BID 09/18/16 09/18/16 Unknown History Digoxin 125 mcg PO QDAY 09/18/16 09/18/16 Unknown History Losartan [Cozaar] 100 mg PO QDAY 09/18/16 09/18/16 Unknown History Omeprazole 20 mg PO QDAY 09/18/16 09/18/16 Unknown History Potassium Chloride 10 meq PO QDAY 09/18/16 09/18/16 Unknown History Rosuvastatin Calcium 20 mg PO QDAY 09/18/16 09/18/16 Unknown History amLODIPine [Norvasc] 10 mg PO DAILY 09/18/16 09/18/16 Unknown History hydrALAZINE [Apresoline TAB] 50 mg PO BID 09/18/16 09/18/16 Unknown History Furosemide [Lasix TAB] 60 mg PO BID #60 tablet 09/20/16 Unknown Rx Active Meds: Active Medications Acetaminophen (Tylenol) 650 mg PO Q4H PRN PRN Reason: Pain MILD(1-3)/Fever >100.5/GURROLA Amlodipine Besylate (Norvasc) 10 mg PO DAILY [facility] Last Admin: 09/19/16 14:10 Dose: 10 mg Aspirin (Baby Aspirin) 81 mg PO QDAY [facility] Last Admin: 09/19/16 14:10 Dose: 81 mg Atorvastatin Calcium (Lipitor) 40 mg PO QHS [facility] Last Admin: 09/19/16 22:41 Dose: 40 mg Bisacodyl (Dulcolax) 10 mg VT QDAY PRN PRN Reason: Constipation unrelieved by MOM Brimonidine/Timolol (Combigan 0.2-0.5%) 1 drops OU Q12HR [facility] Last Admin: 09/19/16 22:43 Dose: 1 drops Carvedilol (Coreg) 6.25 mg PO BID [facility] Last Admin: 09/19/16 22:40 Dose: 6.25 mg Digoxin (Lanoxin) 0.125 mg PO QDAY [facility] Last Admin: 09/19/16 14:10 Dose: 0.125 mg Enoxaparin Sodium (Lovenox) 30 mg SUB-Q QDAY [facility] Last Admin: 09/19/16 16:00 Dose: Not Given Famotidine (Pepcid) 10 mg PO BID [facility] Last Admin: 09/19/16 22:41 Dose: 10 mg Furosemide (Lasix) 80 mg IV 0600,1800 [facility] Last Admin: 09/20/16 05:37 Dose: 80 mg Hydralazine HCl (Apresoline) 50 mg PO BID [facility] Last Admin: 09/19/16 22:41 Dose: 50 mg Hydromorphone HCl (Dilaudid) 0.5 mg IV Q3H PRN PRN Reason: Pain , Severe (7-10) Losartan Potassium (Cozaar) 100 mg PO QDAY [facility] Last Admin: 09/19/16 14:09 Dose: 100 mg Magnesium Hydroxide (Milk Of Magnesia) 30 ml PO Q4H PRN PRN Reason: Constipation Ondansetron HCl (Zofran) 4 mg IV Q8H PRN PRN Reason: N/V unrelieved by Reglan Oxycodone/Acetaminophen (Percocet 5/325) 1 tab PO Q6H PRN PRN Reason: Pain, Moderate (4-6) Review of Systems All systems: negative (Constitutional: no fever or chills. No anorexia or weight loss. HEENT: No sore throat or sinus drainage no hearing or vision impairment . Cardiovascular: See history of present illness. Respiratory: No cough, sputum, shortness of breath, hemoptysis or wheezing. Gastrointestinal: No nausea, vomiting, diarrhea, abdominal pain, hematemesis or melena. Genitourinary: No frequency urgency dysuria or hematuria. hematologic: No abnormal bleeding or bruising. Integumentary: no pruritus or rash. Neurological : No headache no focal weakness or numbness, no syncope or seizures. Endocrine : She admits to cold intolerance. No history of diabetes mellitus Musculoskeletal: No joint pains no stiffness. Psychiatry: no anxiety or depression) Exam - Vital Signs Vital signs: Vital Signs Temp Pulse Resp Pulse Ox 98.4 F 70 27 H 94 09/18/16 16:35 09/18/16 16:35 09/18/16 16:35 09/18/16 16:35 - Physical Exam Narrative exam: Elderly -Norwegian female lying in bed in no acute distress HEENT normocephalic atraumatic, Blind in both eyes Neck supple, no thyromegaly no jugular venous distention CVS S1-S2 regular rate rhythm without murmur, rub or gallop Chest few rhonchi lower zones Abdomen soft nondistended nontender no organomegaly no bruit bowel sounds present Extremities trace edema no cyanosis or clubbing Genitourinary deferred Neuro awake, alert oriented x3 no gross deficit Results - Lab Results 09/20/16 04:53 09/20/16 04:53 Most recent lab results Calcium 8.1 mg/dL (8.4-10.2) L 09/20/16 04:53 Assessment and Plan - Patient Problems (1) Other acute kidney failure Current Visit: Yes Status: Acute Plan to address problem: Unclear if patient has acute kidney injury. If present probably prerenal azotemia secondary to diuresis/acute cardiorenal syndrome. Kidney function remains stable. We'll follow-up as an outpatient on discharge (2) Chronic kidney disease, stage III (moderate) Current Visit: Yes Status: Acute Plan to address problem: Suspect patient has stage III chronic kidney disease. We'll get kidney ultrasound and urinalysis. Further workup of chronic kidney disease as an outpatient. (3) Acute on chronic systolic heart failure Current Visit: Yes Status: Acute Plan to address problem: Agree with intravenous diuretic but decrease the dose to once a day. Probably be able to switch to oral diuretic in the morning. Reinforced importance of adhering to low sodium diet and fluid restriction. Will need early follow-up as an outpatient (4) Hypernatremia Current Visit: Yes Status: Acute Plan to address problem: Sodium improving. We'll follow (5) Anemia in chronic kidney disease Current Visit: Yes Status: Acute Plan to address problem: Follow-up hemoglobin. Check iron stores (6) Hypertensive chronic kidney disease with stage 1 through stage 4 chronic kidney disease, or unspecified chronic kidney disease Current Visit: Yes Status: Acute Plan to address problem: Follow-up blood pressure on current medications (7) Hyperkalemia Current Visit: Yes Status: Acute Plan to address problem: Potassium has improved. Follow-up
--- NOTE | 2016-09-20 09:16 | Ultrasound Report ---
ULTRASOUND RENAL BILATERAL HISTORY: Chronic renal disease with acute renal insufficiency. TECHNIQUE: transabdominal ultrasound with color Doppler interrogation. FINDINGS: The right kidney measures 10.4 x 4.5 x 5.7cm. Right renal cortex: 1.3cm. The left kidney measures 11.2 x 4.8 x 5.5cm. Left renal cortex: 1.6cm. The kidneys are normal size, contour and position. There is increased renal parenchymal echotexture bilaterally. Corticomedullary differentiation is preserved. One cyst in the superior right kidney measures 1 cm. There are 2 cysts in the superior left kidney measuring 2.4 cm and 2.5 cm. No evidence for mass, nephrolithiasis, hydronephrosis or perinephric fluid. The bladder is empty and contains a James catheter IMPRESSION: Renal parenchymal disease. Bilateral simple renal cysts. No evidence for hydronephrosis.
[2016-09-20] MEDS ORDERED: LASIX IV SCH (10:00)
--- NOTE | 2016-09-20 10:10 | Discharge Summary ---
Providers - Providers Date of Admission: 09/18/16 19:07 Date of discharge: 09/20/16 Attending physician: BRADLY ZAPATA MD 09/18/16 19:56 Consult to Physician [CONS] Routine Consulting Provider: AKHIL CERVANTES Reason For Exam: CHF exacerbation Place consult to:: AKHIL CERVANTES Notified:: Carolann from answering service Phone number called:: [phone] Was contact made?: Yes Time called:: 06:57 09/18/16 20:35 Consult to Physician [CONS] Routine Consulting Provider: PATIENCE KEITH Reason For Exam: Renal insufficiency Place consult to:: PATIENCE KEITH Notified:: PATIENCE KEITH Phone number called:: [phone] Hospitalization Reason for admission: CHF Condition: Stable Hospital course: Patient is a pleasant 81-year-old -Eritre[place] female with history of hypertension congestive heart failure valve replacement has been having increasing shortness of breath for 1 week. She increased her Lasix to 80 mg twice daily for couple of days and then saw her PMD who then decrease it to 60 mg twice a day. In spite of the increase in Lasix patient has been getting more and more short of breath. Also shortness of breath on minimal exertion and on lying down. No paroxysmal nocturnal dyspnea. No chest pain. Patient continues to smoke. Patient is blind. No fever no chills. on admission patient was seen by cardiology and nephrology, she was Diuresed with lasix 80mg IV bid with good fluid output, we subsequently transitioned her to daily and then to PO. CHF education including salt management and daily weights were discussed in detail with patient and family. due to rising Troponin patient was sent to have a stress test which was negative and a stable at this time for discharge. She does follow with cardiology and wrinkle chaser. * Acute on chronic systolic congestive heart failure. Last echo in 2014 shows EF of 25-30% * Hyperkalemia * Acute kidney injury and chronic kidney disease stage III likely secondary to visible to nephropathy present on admission * Hypertension * Hypernatremia-resolved * Anemia of chronic disease * Hypertension secondary to chronic kidney disease * Elevated troponin likely secondary to decompensated heart failure and renal insufficiency * Sick sinus syndrome status post pacemaker * Tobacco abuse extensive counseling provided to the patient admitted to quit. Disposition: DC/TX HOME UNDER HOME HEALTH Time spent for discharge: 35 MINS Core Measure Documentation - Palliative Care Palliative Care/ Comfort Measures: Not Applicable - Core Measures Any of the following diagnoses?: heart failure - VTE Discharge Requirements Deep Vein Thrombosis/Pulmonary Embolism Present on Admission: No - Heart Failure Discharge Requirements MARICEL/ARB for LVSD if EF <40%: Yes Beta sukh at discharge: Yes Exam - Physical Exam Narrative exam: VITAL SIGNS: Reviewed. GENERAL: The patient appeared well nourished and normally developed. Vital signs as documented. HEAD: No signs of head trauma. EYES: legally blind EARS: Hearing grossly intact. MOUTH: Oropharynx is normal. NECK: No adenopathy, no JVD. CHEST: Chest with crackles breath sounds bilaterally. No wheezes. CARDIAC: Regular rate and rhythm. S1 and S2, without murmurs, gallops, or rubs. VASCULAR: 1+ pitting Edema. Peripheral pulses normal and equal in all extremities. ABDOMEN: Soft, without detectable tenderness. No sign of distention. No rebound or guarding, and no masses palpated. Bowel Sounds normal. MUSCULOSKELETAL: Moving all extremities.. Extremities without clubbing, cyanosis and 1+ pitting edema noted bilateral lower extremity NEUROLOGIC EXAM: Alert and oriented x 3. No focal sensory or strength deficits. Speech normal. Follows commands. He was able to ambulate yesterday. She cane PSYCHIATRIC: Mood normal. SKIN: No rash or lesions. - Constitutional Vitals: Temp Pulse Resp BP Pulse Ox 98.1 F 64 18 133/63 97 09/20/16 04:00 09/20/16 04:00 09/20/16 04:00 09/20/16 04:00 09/20/16 04:00 Plan Activity: advance as tolerated, fall precautions Diet: low fat, low salt Special Instructions: physical therapy, home health RN Additional Instructions: bmp at cardiology or wrinkle chaser office in 1 week Follow up with: EDVIN BARBOZA [Other] - 3-5 Days HENRIQUE CANNON MD [Staff Physician] - 7 Days CIRILO AUGUST MD [Staff Physician] - 10/07/16 Prescriptions: Furosemide [Lasix TAB] 60 mg PO BID #60 tablet
[2016-09-20] MEDS: LOVENOX SUB-Q SCH (10:46)
[2016-09-20] MEDS: COZAAR PO SCH (10:46)
[2016-09-20] MEDS: COREG PO SCH ×2 (10:46→21:27)
[2016-09-20] MEDS: NORVASC PO SCH (10:47)
[2016-09-20] MEDS: LANOXIN PO SCH (10:47)
[2016-09-20] MEDS: BABY ASPIRIN PO SCH (10:47)
[2016-09-20] MEDS: PEPCID PO SCH ×2 (10:47→21:28)
[2016-09-20] MEDS: APRESOLINE PO SCH ×2 (10:48→21:28)
[2016-09-20] MEDS: COMBIGAN 0.2-0.5% OU SCH ×2 (10:58→21:37)
--- NOTE | 2016-09-20 11:04 | Progress Note ---
Assessment and Plan Acute on chronic systolic heart failure clinically improving Echo 09/2016: EF 30-35%, diastolic dysfunction, moderate MR, moderate TR, RVSP 62mmHg continue lasix, coreg, losartan Elevated troponin, now trending up no chest pain likely due to decompensated HF/renal insufficiency stress test in am Hx. of mitral and tricuspid valve repair (2012) Acute on chronic kidney failure cautious diuresis monitor renal indices per nephrology SSS s/p pacemaker (2012) Hypertension Tobacco abuse Continue current management. Lexiscan thallium stress test in am. The patient has been seen in conjunction with Dr. Ruiz who agrees with the assessment and plan of care. Subjective Date of service: 09/20/16 Principal diagnosis: acute on chronic systolic heart failure, elevated troponin Interval history: The patient is resting in bed. No new complaints. Shortness of breath resolved. Paced rhythm on the monitor. Objective Last Vital Signs Temp 98.1 F 09/20/16 04:00 Pulse 84 09/20/16 10:47 Resp 18 09/20/16 04:00 BP 127/64 09/20/16 10:47 Pulse Ox 97 09/20/16 04:00 - Physical Examination General: No Apparent Distress HEENT: Positive: Normocephaly, Mucus Membranes Moist Neck: Positive: neck supple, trachea midline Cardiac: Positive: Reg Rate and Rhythm, S1/S2 Lungs: Positive: clear to auscultation Neuro: Positive: Grossly Intact Abdomen: Positive: Soft, Active Bowel Sounds. Negative: Tender Skin: Positive: Clear. Negative: Rash Extremities: Present: edema (trace-bilateral lower legs) - Labs and Meds Cardiac Enzymes 09/19/16 09/19/16 Range/Units 11:58 18:29 CK-MB (CK-2) 2.6 2.8 (0.0-4.0) ng/mL CBC 09/20/16 Range/Units 04:53 WBC 6.6 (4.5-11.0) K/mm3 RBC 4.35 (3.65-5.03) M/mm3 Hgb 10.3 (10.1-14.3) gm/dl Hct 34.3 (30.3-42.9) % Plt Count 152 (140-440) K/mm3 Comprehensive Metabolic Panel 09/20/16 Range/Units 04:53 Sodium 144 (137-145) mmol/L Potassium 4.0 (3.6-5.0) mmol/L Chloride 102.8 (98-107) mmol/L Carbon Dioxide 32 H (22-30) mmol/L BUN 25 H (7-17) mg/dL Creatinine 2.2 H (0.7-1.2) mg/dL Glucose 87 (65-100) mg/dL Calcium 8.1 L (8.4-10.2) mg/dL - Imaging and Cardiology EKG: image reviewed Echo: report reviewed (09/2016: EF 30-35%, diastolic dysfunction, moderate MR, moderate TR, RVSP 62mmHg) - Telemetry EKG Rhythm: Paced Pacemaker: ventricular pacing w/capt
--- NOTE | 2016-09-20 11:17 | Query- Renal Failure ---
Jair Beard____Kalee Date:____09/20/16 Music Therapist/CDS:____Jason Benavidesjosé luis Phone#:___[phone] Exercise your independent professional judgment when responding to query. Questions asked do not imply a particular answer is desired or expected. We greatly appreciate your clarification on this issue. Clinical Documentation States: 81 year old female was admitted on 09/18/16. The progress note (09/19/16) states " Acute kidney injury likely secondary to visible to nephropathy present on admission " Clinical Findings Show: Creatinine: 2.3 Please clarify if you mean: Acute Renal Failure with or due to: [ ] Tubular Necrosis [ ] Medullary Necrosis [ ] Vasomotor Nephropathy [ ] Shock Kidney [ ] Tubular Nephrosis [ ] Renal Tubular Stasis [ ] Cortical Necrosis [ ] Acute Renal Failure (unspecified) [ ] Lower Tubular Nephrosis [ ] Other: [ ] Not Applicable Present on Admission: [ ] Yes (Y) [ ] Clinically undeterminable (W) [ ] No (N) Please also document response in your Progress Notes and/or Discharge Summary and indicate if the condition was present on admission. AZEEMD
--- NOTE | 2016-09-20 14:44 | Progress Note ---
Assessment and Plan Assessment and plan: Patient is a pleasant 81-year-old -[place] female with history of hypertension congestive heart failure valve replacement has been having increasing shortness of breath for 1 week. She increased her Lasix to 80 mg twice daily for couple of days and then saw her PMD who then decrease it to 60 mg twice a day. In spite of the increase in Lasix patient has been getting more and more short of breath. Also shortness of breath on minimal exertion and on lying down. No paroxysmal nocturnal dyspnea. No chest pain. Patient continues to smoke. Patient is blind. No fever no chills. * Acute on chronic systolic congestive heart failure. Last echo in 2014 shows EF of 25-30% * Hyperkalemia * Acute kidney injury likely secondary to visible to nephropathy present on admission * Hypertension * Hypernatremia-resolved * Elevated troponin likely secondary to decompensated heart failure and renal insufficiency * Sick sinus syndrome status post pacemaker * Tobacco abuse extensive counseling provided to the patient admitted to quit. Plan * Creatinine remains stable mildly elevated troponin today. We'll plan for stress test in a.m. per cardiology Continue IV lasix, coreg, losartan * Monitor potassium closely and ensure correction. * Nephrology input noted. Discussed with cardiology * I discussed with nursing staff to get patient out of bed to chair she does ambulate with a cane if need be we'll get physical therapy consultation. * Monitor sodium * DVT and GI prophylaxis * DC James catheter * Plan of care discussed with the patient in detail she verbalizes understanding * No family member present and bed side today History Interval history: Follow-up shortness of breath Patient seen and examined this morning in no acute distress, continues to improve with her shortness of breath. Denies any chest pain, nausea, vomiting, diarrhea No fever noted blood pressure controlled No adverse events reported to me by nursing staff Hospitalist Physical - Physical exam Narrative exam: VITAL SIGNS: Reviewed. GENERAL: The patient appeared well nourished and normally developed. Vital signs as documented. HEAD: No signs of head trauma. EYES: Pupils are equal. Extraocular motions intact. EARS: Hearing grossly intact. MOUTH: Oropharynx is normal. NECK: No adenopathy, no JVD. CHEST: Chest with crackles breath sounds bilaterally. No wheezes. CARDIAC: Regular rate and rhythm. S1 and S2, without murmurs, gallops, or rubs. VASCULAR: 1+ pitting Edema. Peripheral pulses normal and equal in all extremities. ABDOMEN: Soft, without detectable tenderness. No sign of distention. No rebound or guarding, and no masses palpated. Bowel Sounds normal. MUSCULOSKELETAL: Moving all extremities.. Extremities without clubbing, cyanosis and 1+ pitting edema noted bilateral lower extremity NEUROLOGIC EXAM: Alert and oriented x 3. No focal sensory or strength deficits. Speech normal. Follows commands. He was able to ambulate yesterday. She cane PSYCHIATRIC: Mood normal. SKIN: No rash or lesions. - Constitutional Vitals: Temp Pulse Resp BP Pulse Ox 98.1 F 84 18 127/64 98 09/20/16 04:00 09/20/16 11:00 09/20/16 11:00 09/20/16 10:47 09/20/16 11:00 General appearance: Present: no acute distress Results - Labs CBC & Chem 7: 09/20/16 04:53 09/20/16 04:53 Labs: Laboratory Last Values WBC 6.6 K/mm3 (4.5-11.0) 09/20/16 04:53 RBC 4.35 M/mm3 (3.65-5.03) 09/20/16 04:53 Hgb 10.3 gm/dl (10.1-14.3) 09/20/16 04:53 Hct 34.3 % (30.3-42.9) 09/20/16 04:53 MCV 81 fl (79-97) 09/20/16 04:53 MCH 24 pg (28-32) L 09/20/16 04:53 MCHC 29 % (30-34) L 09/20/16 04:53 RDW 19.4 % (13.2-15.2) H 09/20/16 04:53 Plt Count 152 K/mm3 (140-440) 09/20/16 04:53 Lymph % (Auto) 29.3 % (13.4-35.0) 09/19/16 05:09 [place] % (Auto) 14.7 % (0.0-7.3) H 09/19/16 05:09 Eos % (Auto) 1.4 % (0.0-4.3) 09/19/16 05:09 Baso % (Auto) 1.0 % (0.0-1.8) 09/19/16 05:09 Lymph # 1.8 K/mm3 (1.2-5.4) 09/19/16 05:09 [place] # 0.9 K/mm3 (0.0-0.8) H 09/19/16 05:09 Eos # 0.1 K/mm3 (0.0-0.4) 09/19/16 05:09 Baso # 0.1 K/mm3 (0.0-0.1) 09/19/16 05:09 Seg Neutrophils % 53.6 % (40.0-70.0) 09/19/16 05:09 Seg Neutrophils # 3.4 K/mm3 (1.8-7.7) 09/19/16 05:09 Sodium 144 mmol/L (137-145) 09/20/16 04:53 Potassium 4.0 mmol/L (3.6-5.0) 09/20/16 04:53 Chloride 102.8 mmol/L (98-107) 09/20/16 04:53 Carbon Dioxide 32 mmol/L (22-30) H 09/20/16 04:53 Anion Gap 13 mmol/L 09/20/16 04:53 BUN 25 mg/dL (7-17) H 09/20/16 04:53 Creatinine 2.2 mg/dL (0.7-1.2) H 09/20/16 04:53 Estimated GFR 26 ml/min 09/20/16 04:53 BUN/Creatinine Ratio 11.36 % 09/20/16 04:53 Glucose 87 mg/dL (65-100) 09/20/16 04:53 Hemoglobin A1c 5.9 % (4-6) 09/18/16 17:14 Calcium 8.1 mg/dL (8.4-10.2) L 09/20/16 04:53 Total Bilirubin 0.6 mg/dL (0.1-1.2) 09/19/16 05:09 Direct Bilirubin 0.2 mg/dL (0-0.2) 09/18/16 17:14 Indirect Bilirubin 0.3 mg/dL 09/18/16 17:14 AST 11 units/L (5-40) 09/19/16 05:09 ALT 6 units/L (7-56) L 09/19/16 05:09 Alkaline Phosphatase 41 units/L (35-129) 09/19/16 05:09 Total Creatine Kinase 83 units/L (30-135) 09/19/16 18:29 CK-MB (CK-2) 2.8 ng/mL (0.0-4.0) 09/19/16 18:29 CK-MB (CK-2) Rel Index 3.3 (0-4) 09/19/16 18:29 Troponin T 0.158 ng/mL (0.00-0.029) H* D 09/19/16 18:29 NT-Pro-B Natriuret Pep > 41095 pg/mL (0-900) H 09/18/16 17:14 Total Protein 5.8 g/dL (6.3-8.2) L 09/19/16 05:09 Albumin 2.9 g/dL (3.9-5) L 09/19/16 05:09 Albumin/Globulin Ratio 1.0 % 09/19/16 05:09 Triglycerides 89 mg/dL (2-149) 09/18/16 17:14 Cholesterol 112 mg/dL (50-199) 09/18/16 17:14 LDL Cholesterol Direct 37 mg/dL (50-130) L 09/18/16 17:14 HDL Cholesterol 58 mg/dL (40-59) 09/18/16 17:14 Cholesterol/HDL Ratio 1.93 % 09/18/16 17:14 Urine Color Yellow (Yellow) 09/18/16 18:05 Urine Turbidity Slightly-cloudy (Clear) 09/18/16 18:05 Urine pH 5.0 (5.0-7.0) 09/18/16 18:05 Ur Specific [place] 1.008 (1.003-1.030) 09/18/16 18:05 Urine Protein <15 mg/dl mg/dL (Negative) 09/18/16 18:05 Urine Glucose (UA) Neg mg/dL (Negative) 09/18/16 18:05 Urine Ketones Neg mg/dL (Negative) 09/18/16 18:05 Urine Blood Neg (Negative) 09/18/16 18:05 Urine Nitrite Neg (Negative) 09/18/16 18:05 Urine Bilirubin Neg (Negative) 09/18/16 18:05 Urine Urobilinogen < 2.0 mg/dL (<2.0) 09/18/16 18:05 Ur Leukocyte Esterase Neg (Negative) 09/18/16 18:05 Urine WBC (Auto) < 1.0 /HPF (0.0-6.0) 09/18/16 18:05 Urine RBC (Auto) < 1.0 /HPF (0.0-6.0) 09/18/16 18:05 U Epithel Cells (Auto) < 1.0 /HPF (0-13.0) 09/18/16 18:05 Urine Mucus Few /HPF 09/18/16 18:05
[2016-09-21 07:39] VITALS: BP 163/66
[2016-09-21] MEDS ORDERED: LEXISCAN IV ONE ×2 (09:13→09:19)
--- NOTE | 2016-09-21 11:01 | Progress Note ---
Assessment and Plan Acute on chronic systolic heart failure clinically improving Echo 09/2016: EF 30-35%, diastolic dysfunction, moderate MR, moderate TR, RVSP 62mmHg continue lasix, coreg, losartan Elevated troponin, now trending up no chest pain likely due to decompensated HF/renal insufficiency await stress test results Hx. of mitral and tricuspid valve repair (2012) Acute on chronic kidney failure cautious diuresis monitor renal indices per nephrology SSS s/p pacemaker (2012) Hypertension Tobacco abuse Continue current management. Await stress test results. The patient has been seen in conjunction with Dr. Ruiz who agrees with the assessment and plan of care. Subjective Date of service: 09/21/16 Principal diagnosis: acute on chronic systolic heart failure, elevated troponin Interval history: Pt. is resting comfortably in bed. No new complaints. Paced rhythm on the monitor. Objective Last Vital Signs Temp 98.6 F 09/21/16 07:37 Pulse 86 09/21/16 07:37 Resp 22 09/21/16 07:37 BP 163/66 09/21/16 07:37 Pulse Ox 90 09/21/16 07:37 - Physical Examination General: No Apparent Distress HEENT: Positive: Normocephaly, Mucus Membranes Moist Neck: Positive: neck supple, trachea midline Cardiac: Positive: Reg Rate and Rhythm, S1/S2 Lungs: Positive: clear to auscultation Neuro: Positive: Grossly Intact Abdomen: Positive: Soft, Active Bowel Sounds. Negative: Tender Skin: Positive: Clear. Negative: Rash Extremities: Present: edema (trace-bilateral lower legs) - Imaging and Cardiology EKG: image reviewed Echo: report reviewed (09/2016: EF 30-35%, diastolic dysfunction, moderate MR, moderate TR, RVSP 62mmHg) - Telemetry EKG Rhythm: Paced Pacemaker: ventricular pacing w/capt
--- NOTE | 2016-09-21 11:42 | Treadmill Report ---
NUCLEAR CARDIAC IMAGING INDICATION FOR PROCEDURE: Abnormal cardiac troponin, shortness of breath. Informed consent was obtained. DESCRIPTION OF PROCEDURE: Resting nuclear cardiac images were performed 45-60 minutes following the intravenous administration of 10 mCi of technetium 99m Myoview. Vasodilator stress was achieved with the intravenous administration of 0.4 mg of Lexiscan per protocol. Subsequently stress myocardial imaging was performed 30-45 minutes following the intravenous administration of 28 mCi of technetium 99m Myoview. Images were acquired in a 180-degree arc from 45 degrees GLASS to 45 degrees LPO. After data acquisition and reconstruction, the images were reoriented into the vertical long, horizontal long, and horizontal short axis slices. A polar color map of the horizontal short axis slices was generated and reviewed. The rotating planar images reviewed in cinematic format on the computer console. Gated SPECT imaging demonstrates a post-stress left ventricular ejection fraction of 35%. The left ventricle is diffusely hypokinetic. Myocardial perfusion imaging demonstrates no significant cavity change between stress and rest. No significant stress induced perfusion defects are noted. Nuclear cardiac imaging demonstrates moderate left ventricular systolic dysfunction with no significant evidence for myocardial ischemia or necrosis. The procedure was well tolerated. There were no complications. JOB# [id number] DAILY/ABDIEL
[2016-09-21] MEDS: COZAAR PO SCH (12:21)
[2016-09-21] MEDS: BABY ASPIRIN PO SCH (12:21)
[2016-09-21] MEDS: LANOXIN PO SCH (12:21)
[2016-09-21] MEDS: PEPCID PO SCH (12:21)
[2016-09-21] MEDS: LOVENOX SUB-Q SCH (12:22)
[2016-09-21] MEDS: APRESOLINE PO SCH (12:22)
[2016-09-21] MEDS: COREG PO SCH (12:22)
[2016-09-21] MEDS: NORVASC PO SCH (12:22)
[2016-09-21] MEDS: LASIX IV SCH (12:23)
[2016-09-21] MEDS: COMBIGAN 0.2-0.5% OU SCH (12:33)
--- NOTE | 2016-09-21 12:39 | Progress Note ---
Assessment and Plan (1) Other acute kidney failure Current Visit: Yes Status: Acute Plan to address problem: Unclear if patient has acute kidney injury. If present probably prerenal azotemia secondary to diuresis/acute cardiorenal syndrome. Kidney function remains stable. We'll follow-up as an outpatient on discharge, discussed f/u in 1 week with pt. (2) Chronic kidney disease, stage III (moderate) Current Visit: Yes Status: Acute Plan to address problem: Suspect patient has stage III chronic kidney disease. kidney ultrasound results reviewed, no hydronephrosis or blockage noted. Further workup of chronic kidney disease as an outpatient. (3) Acute on chronic systolic heart failure Current Visit: Yes Status: Acute Plan to address problem: switch to oral diuretic before d/c. Reinforced importance of adhering to low sodium diet and fluid restriction. Will need early follow-up as an outpatient (4) Hypernatremia Current Visit: Yes Status: Acute Plan to address problem: Sodium improving. We'll follow (5) Anemia in chronic kidney disease Current Visit: Yes Status: Acute Plan to address problem: Follow-up hemoglobin. Check iron stores (6) Hypertensive chronic kidney disease with stage 1 through stage 4 chronic kidney disease, or unspecified chronic kidney disease Current Visit: Yes Status: Acute Plan to address problem: Follow-up blood pressure on current medications (7) Hyperkalemia Current Visit: Yes Status: Acute Plan to address problem: Potassium has improved. Follow-up Subjective Date of service: 09/21/16 Principal diagnosis: acute on chronic systolic heart failure, elevated troponin Interval history: Pt seen lying in bed, family at bedside, preparing for d/c. Objective - Vital Signs Vital signs: Vital Signs - 12hr 09/21/16 09/21/16 09/21/16 01:18 03:30 05:57 Temperature 98.3 F 98.1 F Pulse Rate 61 Pulse Rate [ 67 68 Left] Respiratory 20 18 Rate Blood Pressure Blood Pressure 124/64 134/63 [Left Arm] O2 Sat by Pulse 100 96 Oximetry 09/21/16 09/21/16 07:37 12:21 Temperature 98.6 F Pulse Rate 87 Pulse Rate [ 86 Left] Respiratory 22 Rate Blood Pressure 163/66 Blood Pressure 163/66 [Left Arm] O2 Sat by Pulse 90 Oximetry - General Appearance General appearance: well-developed, well-nourished, appears stated age EENT: mucous membranes moist Neck: no JVD, supple Respiratory: Present: Clear to Ascultation, Normal Exam Cardiology: regular, normal heart rate, S1S2, no murmurs Gastrointestinal: normal Integumentary: no rash, warm and dry Neurologic: alert and oriented x3 Musculoskeletal: other (moves all extremities) Psychiatric: mood/affect appropriate, cooperative - Lab 09/20/16 04:53 09/20/16 04:53 Most recent lab results Calcium 8.1 mg/dL (8.4-10.2) L 09/20/16 04:53
== END 2016-09-21 12:48 | disposition home health service (06) | DRG 682 ==
LOC: ED 16:28 → 4A 19:07
PROVIDERS: ADMIT Internal Medicine; ATTEND Internal Medicine
DX: N17.0 Acute kidney failure with tubular necrosis (principal); I50.23 Acute on chronic systolic (congestive) heart failure; I13.0 Hypertensive heart and chronic kidney disease with heart failure and stage 1 through stage 4 chronic kidney disease, or unspecified chronic kidney disease; E87.0 Hyperosmolality and hypernatremia; E87.5 Hyperkalemia; H54.8 Legal blindness, as defined in USA; F17.210 Nicotine dependence, cigarettes, uncomplicated; I15.1 Hypertension secondary to other renal disorders; K21.9 Gastro-esophageal reflux disease without esophagitis; N18.3 Chronic kidney disease, stage 3 (moderate); D63.1 Anemia in chronic kidney disease; I25.10 Atherosclerotic heart disease of native coronary artery without angina pectoris; I49.5 Sick sinus syndrome; Z80.9 Family history of malignant neoplasm, unspecified; Z88.2 Allergy status to sulfonamides; Z95.0 Presence of cardiac pacemaker; Z71.6 Tobacco abuse counseling; Z82.49 Family history of ischemic heart disease and other diseases of the circulatory system; Z95.4 Presence of other heart-valve replacement
CPT/HCPCS: 36415; 51702; 71010; 76770; 78452; 80048; 80053; 80061; 80074; 81001; 82550; 82553; 83036; 83880; 84484; 85025; 85027; 93005; 93010; 93017; 93306; 94760; 96374; 99406; A9270-GY; A9502; J1644; J1650; J1940; J2785

== ENCOUNTER 2016-10-24 12:03 | Inpatient (IN) | payer MEDICARE ==
[2016-10-24] MEDS ORDERED: NITRO-BID 2% TP ONE (13:06)
[2016-10-24] MEDS ORDERED: LASIX IV ONE (13:06)
--- NOTE | 2016-10-24 13:13 | Emergency Department Report ---
ED Shortness of Breath HPI - General Chief Complaint: Dyspnea/Respdistress Stated Complaint: SOB/N/V/D Time Seen by Provider: 10/24/16 13:05 Source: patient, family, EMS Mode of arrival: Stretcher Limitations: Other - History of Present Illness MD Complaint: shortness of breath Onset/Timin -: Gradual, week(s) Severity: moderate Consistency: constant Improves With: oxygen Worsens With: lying flat, exertion Known History Of: congestive heart failure Associated Symptoms: denies other symptoms, cough, lower abdominal swelling, other (lower extremity swelling) Treatments Prior to Arrival: none - Related Data Home Oxygen Therapy: No Home Medications Medication Instructions Recorded Confirmed Last Taken Aspirin [Aspirin BABY CHEW TAB] 81 mg PO QDAY 09/18/16 09/18/16 Unknown Brimonidine/Timolol 0.2-0.5% 1 drops OP Q12H 09/18/16 09/18/16 Unknown [Combigan 0.2-0.5%] Carvedilol [Coreg] 6.25 mg PO BID 09/18/16 09/18/16 Unknown Digoxin 125 mcg PO QDAY 09/18/16 09/18/16 Unknown Losartan [Cozaar] 100 mg PO QDAY 09/18/16 09/18/16 Unknown Omeprazole 20 mg PO QDAY 09/18/16 09/18/16 Unknown Potassium Chloride 10 meq PO QDAY 09/18/16 09/18/16 Unknown Rosuvastatin Calcium 20 mg PO QDAY 09/18/16 09/18/16 Unknown amLODIPine [Norvasc] 10 mg PO DAILY 09/18/16 09/18/16 Unknown hydrALAZINE [Apresoline TAB] 50 mg PO BID 09/18/16 09/18/16 Unknown Previous Rx's Medication Instructions Recorded Last Taken Type Furosemide [Lasix TAB] 60 mg PO BID #60 tablet 09/20/16 Unknown Rx Allergies Allergy/AdvReac Type Severity Reaction Status Date / Time Sulfa (Sulfonamide Allergy Anaphylaxis Verified 09/18/16 16:46 Antibiotics) lipitor Allergy Angioedema Uncoded 09/20/16 21:32 ED Review of Systems ROS: Stated complaint: SOB/N/V/D Other details as noted in HPI Constitutional: denies: chills, fever Eyes: denies: eye pain, eye discharge, vision change ENT: denies: ear pain, throat pain Respiratory: orthopnea, SOB with exertion, SOB at rest. denies: cough, shortness of breath ( is), wheezing Cardiovascular: denies: chest pain, palpitations Endocrine: no symptoms reported Gastrointestinal: denies: abdominal pain, nausea, diarrhea Genitourinary: denies: urgency, dysuria, discharge Musculoskeletal: denies: back pain, joint swelling, arthralgia Skin: denies: rash, lesions Neurological: denies: headache, weakness, paresthesias Psychiatric: denies: anxiety, depression Hematological/Lymphatic: denies: easy bleeding, easy bruising ED Past Medical Hx - Past Medical History Hx Hypertension: Yes Hx Congestive Heart Failure: Yes Additional medical history: legally blind - Surgical History Hx Pacemaker: Yes Additional Surgical History: valve replacement - Social History Smoking Status: Light Tobacco Smoker Substance Use Type: None - Medications Home Medications: Home Medications Medication Instructions Recorded Confirmed Last Taken Type Aspirin [Aspirin BABY CHEW TAB] 81 mg PO QDAY 09/18/16 09/18/16 Unknown History Brimonidine/Timolol 0.2-0.5% 1 drops OP Q12H 09/18/16 09/18/16 Unknown History [Combigan 0.2-0.5%] Carvedilol [Coreg] 6.25 mg PO BID 09/18/16 09/18/16 Unknown History Digoxin 125 mcg PO QDAY 09/18/16 09/18/16 Unknown History Losartan [Cozaar] 100 mg PO QDAY 09/18/16 09/18/16 Unknown History Omeprazole 20 mg PO QDAY 09/18/16 09/18/16 Unknown History Potassium Chloride 10 meq PO QDAY 09/18/16 09/18/16 Unknown History Rosuvastatin Calcium 20 mg PO QDAY 09/18/16 09/18/16 Unknown History amLODIPine [Norvasc] 10 mg PO DAILY 09/18/16 09/18/16 Unknown History hydrALAZINE [Apresoline TAB] 50 mg PO BID 09/18/16 09/18/16 Unknown History Furosemide [Lasix TAB] 60 mg PO BID #60 tablet 09/20/16 Unknown Rx ED Physical Exam - General Limitations: Other General appearance: alert, in distress - Head Head exam: Present: atraumatic, normocephalic - Eye Eye exam: Present: normal appearance - ENT ENT exam: Present: mucous membranes moist - Neck Neck exam: Present: normal inspection - Respiratory Respiratory exam: Present: respiratory distress, rales, rhonchi, decreased breath sounds. Absent: wheezes, chest wall tenderness, accessory muscle use - Cardiovascular Cardiovascular Exam: Present: regular rate, normal rhythm, bradycardia (paced). Absent: systolic murmur, diastolic murmur, rubs, gallop - GI/Abdominal GI/Abdominal exam: Present: soft, normal bowel sounds - Extremities Exam Extremities exam: Present: normal inspection, pedal edema - Back Exam Back exam: Present: normal inspection - Neurological Exam Neurological exam: Present: alert, oriented X3 - Psychiatric Psychiatric exam: Present: normal affect, normal mood - Skin Skin exam: Present: warm, dry, intact, normal color. Absent: rash ED Course Vital Signs 10/24/16 10/24/16 10/24/16 12:24 12:31 12:33 Temperature 98.9 F Pulse Rate 80 41 L 47 L Respiratory 24 20 16 Rate Blood Pressure 112/58 112/58 O2 Sat by Pulse 100 100 99 Oximetry 10/24/16 10/24/16 10/24/16 12:41 12:51 13:01 Temperature Pulse Rate 40 L 46 L 41 L Respiratory 21 24 24 Rate Blood Pressure 112/58 112/58 117/53 O2 Sat by Pulse 100 100 100 Oximetry 10/24/16 10/24/16 10/24/16 13:05 13:11 13:21 Temperature Pulse Rate 39 L 40 L Respiratory 26 H 28 H 24 Rate Blood Pressure 117/53 117/53 O2 Sat by Pulse 100 100 100 Oximetry 10/24/16 10/24/16 13:30 13:45 Temperature Pulse Rate 41 L Respiratory 23 Rate Blood Pressure 106/56 105/66 O2 Sat by Pulse 100 Oximetry ED Medical Decision Making - Lab Data Result diagrams: 10/24/16 12:59 10/24/16 12:59 - EKG Data When compared to previous EKG there are: no significant change - Radiology Data Radiology results: report reviewed, image reviewed - Medical Decision Making Patient will need admission, for pulmonary edema / chf , also new onset renal failure, Received lasix and nitro, oxygen with improvement of her symptoms,. Will admit to hospitalist, consulted at 1402 and knows about the patient,. Critical care time in (mins) excluding proc time.: 45 Critical care attestation.: If time is entered above; I have spent that time in minutes in the direct care of this critically ill patient, excluding procedure time. ED Disposition Clinical Impression: CHF (congestive heart failure), Elevated troponin level, Other acute kidney failure, SOB (shortness of breath) Disposition: OP ADMITTED IP TO THIS HOSP Is pt being admited?: Yes Does the pt Need Aspirin: Yes Condition: Fair Referrals: PRIMARY CARE, [Primary Care Provider] - 3-5 Days Time of Disposition: 14:16
--- NOTE | 2016-10-24 13:34 | XRay Report ---
Single view chest: Compared to 09/18/16. History: Shortness of breath. Findings: Cardiomegaly. Trachea is midline. Stable pacemaker. Mild pulmonary venous congestion. No consolidation. Right CP angle clear. Left CP angle obscured by left heart. Impression: Probable CHF. No significant interval change.
[2016-10-24 13:58] LABS: Anion Gap 25 mmol/L; BUN/Creatinine Ratio 7.21; Blood Urea Nitrogen 44 mg/dL (7-17); Calcium 8.1 mg/dL (8.4-10.2); Carbon Dioxide 18 mmol/L (22-30); Chloride 101.1 mmol/L (98-107); Glucose 92 mg/dL (65-100); Potassium 4.6 mmol/L (3.6-5.0); Sodium 139 mmol/L (137-145)
--- NOTE | 2016-10-24 14:02 | Admit Criteria Form ---
Admission Criteria Documentation: HEART FAILURE Clinical Indications for Admission to Inpatient Care (Place 'X' for any and all applicable criteria): Admission is indicated by ANY ONE of the following(1)(2)(3)(4): [ ]I. Severe electrolyte abnormalities requiring inpatient care(9) [ ]II. Hemodynamic instability [ ]III. Anasarca [ ]IV. Acute cardiac ischemia causing or associated with failure (Also use Angina or Myocardial Infarction as appropriate) [ ]V. Cardiac arrhythmias of immediate concern [ ]. Precipitating cause for acute decompensation (eg, pneumonia, pulmonary embolism) requires inpatient care [ ]VII. Pulmonary edema that is very severe (eg, mechanical ventilation needed, imminent or likely, need for 100% oxygen to keep oxygen saturation above 90%) [ ]VIII. Inpatient admission required rather than observation care (Also use Heart Failure: Observation Care as appropriate) because of ANY ONE of the following: [ ]a) Pulmonary edema that is severe or worsening as indicated by ALL of the following: [ ]i) New need for oxygen therapy to keep oxygen saturation above 90% (or increased FiO2 need from baseline) [ ]ii) Has not improved sufficiently with emergency department or observation care IV diuretics or other heart failure treatments[C] [ ]b) Cognitive impairment that is severe or persistent [ ]c) Increased creatinine (new on laboratory test) with reduction of more than 50% in estimated glomerular filtration rate from baseline. [ ]d) Acute renal insufficiency (progressively (ongoing) rising creatinine (known from past laboratory test) with reduction of more than 25% in estimated glomerular filtration rate from baseline) [ ]e) Acute peripheral ischemia (eg, pulseless, cool, mottled, or cyanotic extremity) [ ]f) Acute renal failure [ ]g) Supplemental O2 or respiratory treatment for >24 hr that are performable only in acute inpatient setting [ ]h) Pulmonary artery catheter monitoring [ ]i) Other condition, treatment or monitoring requiring inpatient admission [X ]IX. Contraindications and/or Inappropriate clinical situations for Observational Care in patients with Heart Failure, when ANY ONE of the following is required: [ ]a) Patient with High risk of cardiac embolism (e.g, patients with previous cardiac embolism, LVEF < 40%, age >75 and patients with prosthetic valve) 18 [ ]b) Patient with Moderate risk including DM patient, CAD and patient aged 65-75 [ ]c) Patient with any change in cardiac biomarker especially troponin should be managed as high risk in an inpatient setting 19 [ ]d) Physician judgement irrespective of ECG and other diagnostic findings 20 [ ]e) Patients with hyponatremia have high risk for mortality and require more extensive care and length of stay 21 [ ]f) Need for large volume diuresis 21 [X ]g) Presence of renal insufficiency or hypotension limiting speed of diuresis 21 [ ]h) Acute cardiac Ischemia in the elderly 21 [ ]i) Patients with a 30 day risk of mortality based on a multidimensional prognostic index (MPI) [J,]21 [X ]X. General contraindications and/or Inappropriate clinical situations for Observational Care in patients with Heart Failure, when ANY ONE of the following is required: [X ]a) Prediction of prolongation of LOS based on ANY ONE of the following may be considered as a contraindication for observational care 2, 3, 4, 5, 6, 7, 8 , 9, 10, 11 [X ]i) Age > 65 yrs. [ ]ii) Patient arriving by ambulance [ ]iii) Patient with high acuity [ ]iv) Patient requiring vital sign monitoring [ ]v) Patient on IV medication [ ]b) Systolic blood pressures 180mmHg 3,12 [ ]c) Patient with altered mental status including delirium and other alteration of consciousness, (3) [ ]d) Patient whose discharge disposition will be to a residential home or rehabilitation home should not be managed in Emergency Department Observation Unit. CMS rule requires 3 days hospital stay before such placement.3,13 [ ]e) Patient with failure to thrive due to broad array of etiologies 3,16,17 [ ]f) Inability to ambulate 3,14 Extended stay beyond goal length of stay may be needed for(1)(3)(21)(25): [ ]a) Cardiac ischemia, confirmed or suspected as precipitant [ ]b) Cardiogenic shock or refractory pulmonary edema [ ]c) Acute kidney injury or renal failure [ ]d) Respiratory failure (eg, need for noninvasive or invasive mechanical ventilation) (23) [ ]e) Concomitant pneumonia or significant electrolyte abnormality (eg, severe hyponatremia) [ ]f) Newly diagnosed (new onset) atrial fibrillation [ ]g) Stage IV chronic kidney disease (estimated glomerular filtration rate of less than 30 mL/min/1.73m2 (0.50 mL/sec/1.73m2), and not previously on chronic dialysis The original [facility] content created by [facility] has been revised. The portions of the content which have been revised are identified through the use of italic text or in bold, and [facility] has neither reviewed nor approved the modified material. All other unmodified content is copyright [facility]. Please see references footnoted in the original [facility] edition 2016 Admission Criteria Met: Yes
[2016-10-24 14:06] LABS: Mean Corpuscular HGB Conc 29 % (30-34); Mean Corpuscular Volume 78 fl (79-97); Red Blood Count 5.66 M/mm3 (3.65-5.03); Red Cell Distribution Width 19.9 % (13.2-15.2); White Blood Count 6.7 K/mm3 (4.5-11.0)
[2016-10-24 14:09] LABS: Hematocrit 44.4 % (30.3-42.9); Hemoglobin 12.8 gm/dl (10.1-14.3)
[2016-10-24 14:10] LABS: Mean Corpuscular Hemoglobin 23 pg (28-32)
[2016-10-24 14:27] LABS: INR 1.31 (0.87-1.13)
[2016-10-24 14:28] LABS: Partial Thromboplastin Time 25.6 Sec. (24.2-36.6)
--- NOTE | 2016-10-24 14:39 | History and Physical Report ---
History of Present Illness Chief complaint: I cant breathe History of present illness: 81 YO Female with CHF Systolic (EF 30%), HTN, GERD, HLD presents to ED for evaluation. Pt states that she has experienced shortness of breath for the past 2 weeks, with worsening symptoms over the past 2 days. Pt acknowledges orthopnea , PND and dietary noncompliance, Pt denies medication noncompliance, productive cough, fever, chills, CP, Palpitations, syncope, falls, BRBPR, unintentional weight loss, night sweats, or recent ill contacts. Past History Past Medical History: GERD, heart failure, hypertension, hyperlipidemia Past Surgical History: Other (pacemaker, valve replacement.) Social history: . denies: smoking, alcohol abuse, prescription drug abuse Family history: hypertension Medications and Allergies Allergies Allergy/AdvReac Type Severity Reaction Status Date / Time Sulfa (Sulfonamide Allergy Anaphylaxis Verified 09/18/16 16:46 Antibiotics) lipitor Allergy Angioedema Uncoded 09/20/16 21:32 Home Medications Medication Instructions Recorded Confirmed Last Taken Type Aspirin [Aspirin BABY CHEW TAB] 81 mg PO QDAY 09/18/16 10/24/16 10/23/16 History Brimonidine/Timolol 0.2-0.5% 1 drops OP Q12H 09/18/16 10/24/16 10/23/16 History [Combigan 0.2-0.5%] Carvedilol [Coreg] 6.25 mg PO BID 09/18/16 10/24/16 10/23/16 History Digoxin 125 mcg PO QDAY 09/18/16 10/24/16 10/23/16 History Losartan [Cozaar] 100 mg PO QDAY 09/18/16 10/24/16 10/23/16 History Omeprazole 20 mg PO QDAY 09/18/16 10/24/16 10/23/16 History Potassium Chloride 10 meq PO QDAY 09/18/16 10/24/16 10/23/16 History Rosuvastatin Calcium 20 mg PO QDAY 09/18/16 10/24/16 10/23/16 History amLODIPine [Norvasc] 10 mg PO DAILY 09/18/16 10/24/16 10/23/16 History hydrALAZINE [Apresoline TAB] 50 mg PO BID 09/18/16 10/24/16 10/23/16 History Furosemide [Lasix TAB] 60 mg PO BID #60 tablet 09/20/16 10/24/16 10/23/16 Rx Review of Systems All systems: negative Cardiovascular: orthopnea, shortness of breath, paroxysmal nocturnal dyspnea Exam - Constitutional Vitals: Temp Pulse Resp BP Pulse Ox 98.9 F 41 L 23 105/66 100 10/24/16 12:33 10/24/16 13:30 10/24/16 13:30 10/24/16 13:45 10/24/16 13:30 General appearance: Present: mild distress, obese - EENT Eyes: Present: PERRL ENT: hearing intact, clear oral mucosa - Neck Neck: Present: supple, normal ROM - Respiratory Respiratory: bilateral: diminished - Cardiovascular Heart Sounds: Present: S1 & S2. Absent: rub, click - Extremities Extremities: pulses symmetrical, No edema Extremity abnormal: edema Peripheral Pulses: within normal limits - Abdominal General gastrointestinal: Present: soft, non-tender, non-distended, normal bowel sounds Female genitourinary: Present: normal - Integumentary Integumentary: Present: clear, warm, dry - Musculoskeletal Musculoskeletal: gait normal, strength equal bilaterally - Psychiatric Psychiatric: appropriate mood/affect, intact judgment & insight - Neurologic Neurologic: CNII-XII intact, moves all extremities Results - Labs CBC & Chem 7: 10/24/16 12:59 10/24/16 12:59 Labs: Abnormal lab results 10/24/16 10/24/16 10/24/16 Range/Units 12:59 12:59 13:11 RBC 5.66 H (3.65-5.03) M/mm3 Hct 44.4 H (30.3-42.9) % MCV 78 L (79-97) fl MCH 23 L (28-32) pg MCHC 29 L (30-34) % RDW 19.9 H (13.2-15.2) % PT 16.2 H (12.2-14.9) Sec. INR 1.31 H (0.87-1.13) Carbon Dioxide 18 L (22-30) mmol/L BUN 44 H (7-17) mg/dL Creatinine 6.1 H (0.7-1.2) mg/dL Calcium 8.1 L (8.4-10.2) mg/dL Troponin T 0.114 H* (0.00-0.029) ng/mL Assessment and Plan - Patient Problems (1) CHF (congestive heart failure) Current Visit: Yes Status: Acute Qualifiers: Congestive heart failure type: C Congestive heart failure chronicity: C Plan to address problem: CHF Protocol: fluid restriction, daily weight, (2) ARF (acute renal failure) Current Visit: Yes Status: Acute Qualifiers: Acute renal failure type: A Plan to address problem: IVF, at KVO, monitor uop q shift, supportive care. (3) Hypertension Current Visit: No Status: Chronic Qualifiers: Hypertension type: essential hypertension Qualified Code(s): I10 - Essential (primary) hypertension Plan to address problem: Monitor BP q shift, continue current therapy (4) DVT prophylaxis Current Visit: No Status: Acute
[2016-10-24 14:54] LABS: Blastocytes % (Manual) 0 %; Eosinophils % (Manual) 0 % (0.0-4.3); Hypochromasia 1+
[2016-10-24 14:55] LABS: Diff Status Complete; Ovalocytes Rare
[2016-10-24] MEDS ORDERED: ZOFRAN IV PRN (15:00)
[2016-10-24] MEDS ORDERED: DULCOLAX PR PRN (15:00)
[2016-10-24] MEDS ORDERED: TYLENOL PO PRN (15:00)
[2016-10-24] MEDS ORDERED: MILK OF MAGNESIA PO PRN (15:00)
[2016-10-24 15:01] LABS: Cholesterol 147 mg/dL (50-199); HDL Cholesterol 74 mg/dL (40-59); LDL Cholesterol,Direct 52 mg/dL (50-130); Platelet Count 177 K/mm3 (140-440); Triglycerides 107 mg/dL (2-149)
[2016-10-24] MEDS ORDERED: SODIUM CHLORIDE FLUSH SYRINGE 10 ML IV PRN (15:03)
[2016-10-24] MEDS ORDERED: COMBIGAN 0.2-0.5% OD SCH (16:00)
[2016-10-24] MEDS: LASIX IV SCH (20:18)
[2016-10-24 21:48] LABS: Creatine Kinase MB 5.7 ng/mL (0.0-4.0)
[2016-10-24] MEDS: COMBIGAN 0.2-0.5% OD SCH (22:24)
[2016-10-24] MEDS: APRESOLINE PO SCH (22:24)
[2016-10-24] MEDS: COREG PO SCH (22:25)
[2016-10-24 23:42] LABS: Creatine Kinase MB 5.2 ng/mL (0.0-4.0)
[2016-10-25] MEDS ORDERED: KIONEX PO SCH
--- NOTE | 2016-10-25 01:20 | Consultation ---
REQUESTING PHYSICIAN: Rj Benites MD HISTORY OF PRESENT ILLNESS: This is an 81-year-old -[place] female who is now presenting to the office with complaints of progressively worsening edema of both lower extremities as well as abdominal distention and shortness of breath of 1 week duration for further evaluation and management. The patient states that she has been taking Lasix, but she is not putting out any urine. She denied any chest pain. No palpitations. No dizziness or syncope. Mild orthopnea noted. No definite history of any paroxysmal nocturnal dyspnea. The patient, however, complained of nausea and some diarrhea off and on for the past 2 weeks. It is not getting any better as per the patient. The patient lives with her daughter. She takes care of herself with the help of her daughter for her daily activities of living, but now she is finding it difficult to ambulate because of the edema of both lower extremities and shortness of breath with exertion. The patient denies any fever or chills. Mild cough noted. The patient denies any respiratory symptoms like wheezing or asthma. Nausea, diarrhea, and vomiting as described. No hematemesis or melena. , the patient states that she has not been putting out any urine at all for the past few days in spite of taking the diuretic. Neurological, no complaints at the present time. The patient is known to have hypertension and takes medications for that. She also has history of chronic kidney disease. In addition, the patient gives history of tricuspid and mitral valve repair in 2012 at [facility] by Dr. Gordon. During this time, the patient was also noted to have sick sinus syndrome requiring permanent pacemaker. She gives history of congestive heart failure in the past. FAMILY HISTORY: Unremarkable. SOCIAL HISTORY: She lives with her daughter. She does smoke. Nonalcoholic. MEDICATIONS: Currently, the patient was on amlodipine 5 mg daily, aspirin 81 mg daily, carvedilol 12.5 mg b.i.d., hydralazine 50 mg b.i.d., Lasix 40 mg daily, losartan 100 mg daily. REVIEW OF SYSTEMS: CARDIOVASCULAR: As noted above. RESPIRATORY: The patient does give a history of dyspnea with exertion. GASTROINTESTINAL: Nausea, vomiting, and diarrhea as noted. GENITOURINARY: No urine output recently as per the patient. PHYSICAL EXAMINATION: GENERAL: This is an 81-year-old -[place] female, well built, in no acute distress at the present time. The patient was conscious, alert, oriented, and afebrile. SKIN: Warm and dry. HEENT: Pupils are reacting. NECK: Supple. Both carotids are well palpable. She does have bilateral carotid bruits. No JVD. LUNGS: Breath sounds were diminished in both bases with coarse rales. No rhonchi. HEART: S1, S2 heard well. A grade 2/6 systolic murmur noted in the aortic area and left sternal border. No diastolic murmur, no gallop, no rubs. ABDOMEN: Soft and nontender. Bowel sounds well heard. No palpable masses. EXTREMITIES: Lower extremities: She has at least 2-3+ pitting edema bilaterally extending up to the knees. No calf tenderness. Pedal pulses were difficult to palpate. Neurological evaluation was grossly within normal limits. LABORATORY DATA: Showed BUN of 44 and creatinine of 6.1. The patient's creatinine was 2.3 about x 6 months ago. Hemoglobin at that time was and hematocrit of 34.1. The patient had an echocardiogram done in 07/2015. The patient's ejection fraction on the echocardiogram done recently was 30-35%. Monitor shows atrial pacing with a heart rate in the range of about 80. IMPRESSION: 1. Acute on chronic systolic heart failure. 2. Status post permanent pacemaker for sick sinus syndrome. 3. Acute on chronic kidney disease. 4. History of mitral and tricuspid valve repair. This is an 81-year-old female with a history of tricuspid and mitral valve repair as well as permanent pacemaker for sick sinus syndrome and chronic kidney disease is now admitted to the hospital with progressively worsening edema of both lower extremities and dyspnea for further evaluation and management. The patient's history and findings are consistent with congestive heart failure. Chest x-ray is also consistent with pulmonary edema, but her renal function has deteriorated significantly from the last data available. Creatinine is up to 6.1 and she is not putting out any urine at the present time despite of Lasix. So, the patient definitely needs Nephrology evaluation right away and may have to consider dialysis to improve her congestive heart failure. Meanwhile, we will resume her other medications. Keep her blood pressure under control. Monitor the rhythm closely. Problems explained to the patient. She expressed understanding. Prognosis remains guarded. Rest of the plan as per orders. Thank you very much for this consultation. We will follow the patient along with you. JOB# [id number] NARINDER/ABDIEL
[2016-10-25] MEDS: LASIX IV SCH (06:14)
[2016-10-25] MEDS ORDERED: LANOXIN PO SCH (10:00)
[2016-10-25] MEDS ORDERED: NON-FORMULARY (Rosuvastatin Calcium [Rosuvastatin Calcium] 20 MG) PO SCH ×2 (10:00→18:00)
[2016-10-25] MEDS ORDERED: COZAAR PO SCH (10:00)
[2016-10-25] MEDS ORDERED: K-DUR PO SCH (10:00)
[2016-10-25] MEDS ORDERED: NORVASC PO SCH (10:00)
[2016-10-25] MEDS ORDERED: NON-FORMULARY (Omeprazole [Omeprazole] 20 MG) PO SCH (10:00)
[2016-10-25] MEDS: APRESOLINE PO SCH (10:06)
[2016-10-25] MEDS: COREG PO SCH ×2 (10:07→23:05)
[2016-10-25] MEDS: BABY ASPIRIN PO SCH (10:09)
[2016-10-25] MEDS: PROTONIX PO SCH (10:10)
[2016-10-25] MEDS: COMBIGAN 0.2-0.5% OD SCH ×2 (10:17→23:05)
[2016-10-25 12:02] LABS: BUN/Creatinine Ratio 6.84; Chloride 101.1 mmol/L (98-107); Potassium 4.6 mmol/L (3.6-5.0)
--- NOTE | 2016-10-25 14:12 | Progress Note ---
Assessment and Plan Assessment and plan: Acute on chronic CHF exacerbation Acute on chronic kidney injury Sick sinus syndrome Status post pacemaker - Fluid overloaded is not responding Lasix - Cardiology consult appreiated - Nephrology consult placed, patient most needs dialysis - Her daughter and grand son was in the room when I discussed the plan of care and agreed with theplan Disposition - continue inpatient care History Interval history: patient seen and evaluated this morning, patient complains diarrhea. patient was admitted recently to the hospital for the CHF exacerbation and discharged improved. Hospitalist Physical - Physical exam Narrative exam: Not in cardiopulmonary distress. The patient is obese. Vital signs as documented. Head exam is unremarkable. No scleral icterus . Neck is without jugular venous distension, thyromegaly, or carotid bruits. Lungs are clear to auscultation. Cardiac exam reveals regular rate and Rhythm. First and second heart sounds normal. No murmurs, rubs or gallops. Abdominal exam reveals obese abdomen. Extremities are significant for pedal and pretibial edema. EVS ATTENDANT: Alert and oriented 3. No focal weakness. - Constitutional Vitals: Temp Pulse Resp BP Pulse Ox 98.4 F 44 L 20 88/51 100 10/25/16 08:05 10/25/16 10:09 10/25/16 08:05 10/25/16 10:06 10/25/16 10:00 General appearance: Present: mild distress, obese Results - Labs CBC & Chem 7: 10/24/16 12:59 10/25/16 11:29 Labs: Laboratory Last Values WBC 6.7 K/mm3 (4.5-11.0) 10/24/16 12:59 RBC 5.66 M/mm3 (3.65-5.03) H 10/24/16 12:59 Hgb 12.8 gm/dl (10.1-14.3) 10/24/16 12:59 Hct 44.4 % (30.3-42.9) H 10/24/16 12:59 MCV 78 fl (79-97) L 10/24/16 12:59 MCH 23 pg (28-32) L 10/24/16 12:59 MCHC 29 % (30-34) L 10/24/16 12:59 RDW 19.9 % (13.2-15.2) H 10/24/16 12:59 Plt Count 177 K/mm3 (140-440) 10/24/16 12:59 [place] % (Auto) Parts Counter Clerk 10/24/16 12:59 Add Manual Diff Complete 10/24/16 12:59 Total Counted 100 10/24/16 12:59 Seg Neuts % (Manual) 67.0 % (40.0-70.0) 10/24/16 12:59 Band Neutrophils % 0 % 10/24/16 12:59 Lymphocytes % (Manual) 24.0 % (13.4-35.0) 10/24/16 12:59 Reactive Lymphs % (Man) 0 % 10/24/16 12:59 Monocytes % (Manual) 9.0 % (0.0-7.3) H 10/24/16 12:59 Eosinophils % (Manual) 0 % (0.0-4.3) 10/24/16 12:59 Metamyelocytes % 0 % 10/24/16 12:59 Myelocytes % 0 % 10/24/16 12:59 Promyelocytes % 0 % 10/24/16 12:59 Blast Cells % 0 % 10/24/16 12:59 Nucleated RBC % 1.0 % (0.0-0.9) H 10/24/16 12:59 Seg Neutrophils # Man 4.5 K/mm3 (1.8-7.7) 10/24/16 12:59 Band Neutrophils # 0.0 K/mm3 10/24/16 12:59 Lymphocytes # (Manual) 1.6 K/mm3 (1.2-5.4) 10/24/16 12:59 Abs React Lymphs (Man) 0.0 K/mm3 10/24/16 12:59 Monocytes # (Manual) 0.6 K/mm3 (0.0-0.8) 10/24/16 12:59 Eosinophils # (Manual) 0.0 K/mm3 (0.0-0.4) 10/24/16 12:59 Basophils # (Manual) 0.0 K/mm3 (0.0-0.1) 10/24/16 12:59 Metamyelocytes # 0.0 K/mm3 10/24/16 12:59 Myelocytes # 0.0 K/mm3 10/24/16 12:59 Promyelocytes # 0.0 K/mm3 10/24/16 12:59 Blast Cells # 0.0 K/mm3 10/24/16 12:59 WBC Morphology Not Reportable 10/24/16 12:59 Hypersegmented Neuts Not Reportable 10/24/16 12:59 Hyposegmented Neuts Not Reportable 10/24/16 12:59 Hypogranular Neuts Not Reportable 10/24/16 12:59 Smudge Cells Not Reportable 10/24/16 12:59 Toxic Granulation Not Reportable 10/24/16 12:59 Toxic Vacuolation Not Reportable 10/24/16 12:59 Dohle Bodies Not Reportable 10/24/16 12:59 Pelger-Huet Anomaly Not Reportable 10/24/16 12:59 Sara Rods Not Reportable 10/24/16 12:59 Platelet Estimate Appears normal 10/24/16 12:59 Clumped Platelets Not Reportable 10/24/16 12:59 Plt Clumps, EDTA Not Reportable 10/24/16 12:59 Large Platelets Not Reportable 10/24/16 12:59 Giant Platelets Not Reportable 10/24/16 12:59 Platelet Satelliting Not Reportable 10/24/16 12:59 Plt Morphology Comment Not Reportable 10/24/16 12:59 RBC Morphology Not Reportable 10/24/16 12:59 Dimorphic RBCs Not Reportable 10/24/16 12:59 Polychromasia Not Reportable 10/24/16 12:59 Hypochromasia 1+ 10/24/16 12:59 Poikilocytosis Not Reportable 10/24/16 12:59 Anisocytosis Not Reportable 10/24/16 12:59 Microcytosis Not Reportable 10/24/16 12:59 Macrocytosis Not Reportable 10/24/16 12:59 Spherocytes Not Reportable 10/24/16 12:59 Pappenheimer Bodies Not Reportable 10/24/16 12:59 Sickle Cells Not Reportable 10/24/16 12:59 Target Cells Not Reportable 10/24/16 12:59 Tear Drop Cells Not Reportable 10/24/16 12:59 Ovalocytes Rare 10/24/16 12:59 Helmet Cells Not Reportable 10/24/16 12:59 [place] Bodies Not Reportable 10/24/16 12:59 Young Rings Not Reportable 10/24/16 12:59 [place] Cells Not Reportable 10/24/16 12:59 Bite Cells Not Reportable 10/24/16 12:59 Crenated Cell Not Reportable 10/24/16 12:59 Elliptocytes Not Reportable 10/24/16 12:59 Acanthocytes (Spur) Not Reportable 10/24/16 12:59 Rouleaux Not Reportable 10/24/16 12:59 Hemoglobin C Crystals Not Reportable 10/24/16 12:59 Schistocytes Not Reportable 10/24/16 12:59 Malaria parasites Not Reportable 10/24/16 12:59 Osvaldo Bodies Not Reportable 10/24/16 12:59 Hem Pathologist Commnt No 10/24/16 12:59 PT 16.2 Sec. (12.2-14.9) H 10/24/16 13:11 INR 1.31 (0.87-1.13) H 10/24/16 13:11 APTT 25.6 Sec. (24.2-36.6) 10/24/16 13:11 D-Dimer 5394.25 ng/mlDDU (0-234) H 10/24/16 20:17 Sodium 138 mmol/L (137-145) 10/25/16 11:29 Potassium 4.6 mmol/L (3.6-5.0) 10/25/16 11:29 Chloride 101.1 mmol/L (98-107) 10/25/16 11:29 Carbon Dioxide 20 mmol/L (22-30) L 10/25/16 11:29 Anion Gap 22 mmol/L 10/25/16 11:29 BUN 50 mg/dL (7-17) H 10/25/16 11:29 Creatinine 7.3 mg/dL (0.7-1.2) H 10/25/16 11:29 Estimated GFR 7 ml/min 10/25/16 11:29 BUN/Creatinine Ratio 6.84 % 10/25/16 11:29 Glucose 89 mg/dL (65-100) 10/25/16 11:29 Calcium 8.0 mg/dL (8.4-10.2) L 10/25/16 11:29 Total Creatine Kinase 73 units/L (30-135) 10/24/16 22:47 CK-MB (CK-2) 5.2 ng/mL (0.0-4.0) H 10/24/16 22:47 CK-MB (CK-2) Rel Index 7.1 (0-4) H 10/24/16 22:47 Troponin T 0.124 ng/mL (0.00-0.029) H* 10/25/16 10:33 NT-Pro-B Natriuret Pep > 30314 pg/mL (0-900) H 10/24/16 12:59 Triglycerides 107 mg/dL (2-149) 10/24/16 12:59 Cholesterol 147 mg/dL (50-199) 10/24/16 12:59 LDL Cholesterol Direct 52 mg/dL (50-130) 10/24/16 12:59 HDL Cholesterol 74 mg/dL (40-59) H 10/24/16 12:59 Cholesterol/HDL Ratio 1.98 % 10/24/16 12:59
--- NOTE | 2016-10-25 14:59 | Progress Note ---
Assessment and Plan Assessment: Acute on chronic systolic heart failure NICMP - EF 30 - 35% on echo 09/2016 SSS s/p PPM CONRAD on CKD H/o mitral and tricuspid valve repair (2012) Obesity Plan: Discontinue IV lasix in setting of CONRAD on CKD. Hold digoxin and losartan in setting of CONRAD on CKD. Await nephrology consultation. Diuresis/volume optimization per nephrology. Assessment and plan reviewed with pt at bedside. The patient has been seen in conjunction with Dr. Stephens who agrees with the assessment and plan of care. Subjective Date of service: 10/25/16 Principal diagnosis: CHF Interval history: Feeling a little less SOB, VSS. Paced in bigeminy pattern on tele, BPs low. Objective Last Vital Signs Temp 98.4 F 10/25/16 08:05 Pulse 44 L 10/25/16 10:09 Resp 20 10/25/16 08:05 BP 88/51 10/25/16 10:06 Pulse Ox 100 10/25/16 10:00 - Physical Examination General: No Apparent Distress HEENT: Positive: PERRL, Normocephaly, Mucus Membranes Moist Neck: Positive: neck supple, trachea midline Cardiac: Positive: Reg Rate and Rhythm, S1/S2, Systolic Murmur (grade II/) Lungs: Positive: Rales Neuro: Positive: Grossly Intact, Cranial Nerve 2-12 Intact Abdomen: Positive: Unremarkable, Soft, Active Bowel Sounds. Negative: Tender Skin: Positive: Clear. Negative: Rash, Wound Musculoskeletal: No Pain, Normal Range of Motion Extremities: Present: upper extr. pulses, lower extr. pulses, edema, +2 Edema ( BLE ) - Labs and Meds Cardiac Enzymes 10/24/16 10/24/16 Range/Units 20:17 22:47 CK-MB (CK-2) 5.7 H 5.2 H (0.0-4.0) ng/mL Comprehensive Metabolic Panel 10/25/16 Range/Units 11:29 Sodium 138 (137-145) mmol/L Potassium 4.6 (3.6-5.0) mmol/L Chloride 101.1 (98-107) mmol/L Carbon Dioxide 20 L (22-30) mmol/L BUN 50 H (7-17) mg/dL Creatinine 7.3 H (0.7-1.2) mg/dL Glucose 89 (65-100) mg/dL Calcium 8.0 L (8.4-10.2) mg/dL - Imaging and Cardiology EKG: report reviewed, image reviewed Echo: report reviewed (09/18/2016: EF 30 - 35%) Cardiac cath: report reviewed (01/2013: normal coronaries, EF 40%) - Telemetry EKG Rhythm: Paced
[2016-10-25] MEDS ORDERED: IMODIUM PO PRN (18:58)
[2016-10-25] MEDS ORDERED: PERCOCET 5/325 PO PRN (18:58)
--- NOTE | 2016-10-25 21:09 | Consultation ---
History of Present Illness - Reason for Consult Consult date: 10/25/16 acute renal failure Requesting physician: FRIEDA KATE - History of Present Illness 81 yo lady admitted on account of 2 weeks history of shortness of breath. 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 denies: smoking (Used to smoke 1/2 ppd), alcohol abuse, prescription drug abuse, IV drug use Family history: cancer (Brother of Cancer), hypertension, other (Father in a MVA. Mother age 83 years ? cause. ) Medications and Allergies Allergies Allergy/AdvReac Type Severity Reaction Status Date / Time Sulfa (Sulfonamide Allergy Anaphylaxis Verified 09/18/16 16:46 Antibiotics) lipitor Allergy Angioedema Uncoded 09/20/16 21:32 Home Medications Medication Instructions Recorded Confirmed Last Taken Type Aspirin [Aspirin BABY CHEW TAB] 81 mg PO QDAY 09/18/16 10/24/16 10/23/16 History Brimonidine/Timolol 0.2-0.5% 1 drops OP Q12H 09/18/16 10/24/16 10/23/16 History [Combigan 0.2-0.5%] Carvedilol [Coreg] 6.25 mg PO BID 09/18/16 10/24/16 10/23/16 History Digoxin 125 mcg PO QDAY 09/18/16 10/24/16 10/23/16 History Losartan [Cozaar] 100 mg PO QDAY 09/18/16 10/24/16 10/23/16 History Omeprazole 20 mg PO QDAY 09/18/16 10/24/16 10/23/16 History Potassium Chloride 10 meq PO QDAY 09/18/16 10/24/16 10/23/16 History Rosuvastatin Calcium 20 mg PO QDAY 09/18/16 10/24/16 10/23/16 History amLODIPine [Norvasc] 10 mg PO DAILY 09/18/16 10/24/16 10/23/16 History hydrALAZINE [Apresoline TAB] 50 mg PO BID 09/18/16 10/24/16 10/23/16 History Furosemide [Lasix TAB] 60 mg PO BID #60 tablet 09/20/16 10/24/16 10/23/16 Rx Active Meds: Active Medications Acetaminophen (Tylenol) 650 mg PO Q4H PRN PRN Reason: Pain MILD(1-3)/Fever >100.5/GURROLA Amlodipine Besylate (Norvasc) 10 mg PO DAILY [facility] Last Admin: 10/25/16 10:08 Dose: Not Given Aspirin (Baby Aspirin) 81 mg PO QDAY [facility] Last Admin: 10/25/16 10:09 Dose: 81 mg Bisacodyl (Dulcolax) 10 mg [place] QDAY PRN PRN Reason: Constipation unrelieved by MOM Brimonidine/Timolol (Combigan 0.2-0.5%) 1 drops OD Q12H [facility] Last Admin: 10/25/16 10:17 Dose: 1 drops Carvedilol (Coreg) 6.25 mg PO BID [facility] Last Admin: 10/25/16 10:07 Dose: Not Given Hydralazine HCl (Apresoline) 50 mg PO BID [facility] Last Admin: 10/25/16 10:06 Dose: Not Given Loperamide HCl (Imodium) 2 mg PO Q2H PRN PRN Reason: Diarrhea Magnesium Hydroxide (Milk Of Magnesia) 30 ml PO Q4H PRN PRN Reason: Constipation Miscellaneous Medication (Rosuvastatin Calcium [Rosuvastatin Calcium]) 20 mg PO [facility] Ondansetron HCl (Zofran) 4 mg IV Q8H PRN PRN Reason: Nausea And Vomiting Last Admin: 10/25/16 16:05 Dose: 4 mg Oxycodone/Acetaminophen (Percocet 5/325) 1 tab PO Q4H PRN PRN Reason: Pain, Moderate (4-6) Pantoprazole Sodium (Protonix) 20 mg PO QDAY [facility] Last Admin: 10/25/16 10:10 Dose: 20 mg Sodium Chloride (Sodium Chloride Flush Syringe 10 Ml) 10 ml IV PRN PRN PRN Reason: LINE FLUSH Exam - Vital Signs Vital signs: Vital Signs Pulse Resp Pulse Ox 80 24 100 10/24/16 12:24 10/24/16 12:24 10/24/16 12:24 Results - Lab Results 10/24/16 12:59 10/25/16 11:29 Most recent lab results Calcium 8.0 mg/dL (8.4-10.2) L 10/25/16 11:29 Assessment and Plan - Patient Problems (1) ARF (acute renal failure) Current Visit: Yes Status: Acute Qualifiers: Acute renal failure type: A (2) Acute on chronic systolic heart failure Current Visit: No Status: Acute (3) Metabolic acidosis Current Visit: Yes Status: Acute (4) Chronic kidney disease, stage III (moderate) Current Visit: No Status: Acute (5) Hypotension Current Visit: Yes Status: Acute Qualifiers: Hypotension type: H Trimester: T Plan to address problem: Hold AMlodipine and Hydralazine. Place parameters to hold Carvedilol
[2016-10-25] MEDS ORDERED: CRESTOR 20 MG PO SCH (22:00)
[2016-10-25] MEDS ORDERED: [UNRECOGNIZED DRUG - OTHER] PO SCH (22:00)
[2016-10-25] MEDS: NON-FORMULARY (Rosuvastatin Calcium [Rosuvastatin Calcium] 20 MG) PO SCH (23:06)
[2016-10-26 00:27] LABS: Bacteria,Urine 1+ /HPF (Negative); Bilirubin,Urine NEG (Negative); Blood,Urine LG (Negative); Ketones,Urine TR mg/dL (Negative); Leukocyte Esterase,Urine MOD (Negative); Mucus,Urine 1+ /HPF; Nitrite,Urine NEG (Negative); Urobilinogen,Urine < 2.0 mg/dL (<2.0)
[2016-10-26 00:28] LABS: WBC,Urine > 182.0 /HPF (0.0-6.0)
[2016-10-26 06:27] LABS: Hematocrit 41.1 % (30.3-42.9); Hemoglobin 11.9 gm/dl (10.1-14.3)
[2016-10-26 06:36] LABS: BUN/Creatinine Ratio 7.08; Calcium 8.1 mg/dL (8.4-10.2); Chloride 103.2 mmol/L (98-107); Phosphorous 8.1 mg/dL (2.5-4.5); Potassium 5.1 mmol/L (3.6-5.0)
[2016-10-26] MEDS ORDERED: NACL 0.9% 100 ML IV PRN ×2 (09:00→17:01)
--- NOTE | 2016-10-26 09:29 | Ultrasound Report ---
Renal ultrasound. History: Acute renal failure. Findings: The right kidney measures 10.5 x 4.8 x 5.5 cm. The cortical thickness is 1.3 cm. The left kidney measures 11.3 x 4.3 x 4.9 cm. The cortical thickness is 1.9 cm. There is increased echogenicity of the renal parenchyma. Bilateral small renal cysts are again noted similar to the previous study on September 20, 2016. No solid masses are seen. Mild ascites is noted. Impression: Continued evidence of chronic renal disease unchanged from the previous study. Small bilateral renal cysts are noted. 2. Mild ascites.
[2016-10-26] MEDS ORDERED: ANCEF/STERILE WATER 2 GM/20 ML 2 GM/20 ML SYRINGE IV ONE (09:31)
[2016-10-26] MEDS ORDERED: HEPARIN/NS 5000 UNIT/500ML(CATH LAB) 500 ML IR ONE (09:31)
[2016-10-26] MEDS ORDERED: XYLOCAINE 1%/ EPI 1:100,000 INFILTRATI ONE (09:32)
[2016-10-26] MEDS ORDERED: NACL 0.9% 250ML 250 ML ONE (09:32)
[2016-10-26] MEDS: COMBIGAN 0.2-0.5% OD SCH ×2 (10:10→22:38)
[2016-10-26] MEDS: COREG PO SCH ×2 (10:48→22:55)
[2016-10-26] MEDS ORDERED: HEPARIN ONE (10:54)
[2016-10-26] MEDS ORDERED: HEPARIN 10,000 UNITS/10 ML ONE (10:55)
[2016-10-26] MEDS ORDERED: LEVAQUIN PO SCH (11:00)
--- NOTE | 2016-10-26 11:26 | Operative Report ---
Operative Report Operative Report: EXAM: 1. Ultrasound-guided puncture of the right internal jugular vein 2. Fluoroscopic-guided placement of a right internal jugular tunneled cuffed hemodialysis catheter. DATE: 10/26/16 INDICATION: Chronic renal insufficiency requiring hemodialysis access. MEDICATIONS: Please see nursing report for full details. DEVICES: 23 cm tip to cuff 15 Fr dual lumen hemodialysis catheter EMERGENCY TECHNICIAN: KAYLA VELARDE MD CONTRAST: None PROCEDURE: The risks, benefits, and alternatives were discussed and informed consent was obtained. The patient was transported to the angiography suite in satisfactory/ stable condition and was transported onto the angiography table. The patient's right internal jugular vein was assessed with ultrasound and determined to be patent prior to procedure. The patient was prepped and draped in a sterile fashion. The puncture site was anesthetized. Under sonographic guidance, the right internal jugular vein was punctured with a 21-gauge micropuncture needle and a 0.018 inch wire was advanced into the inferior vena cava. The micropuncture needle was exchanged for a transitional dilator and the wire was retracted into the right atrium to bryson intravascular distance. The wire and inner dilator were removed. 0.035 inch wire was advanced through the transitional dilator into the inferior vena cava. A suitable exit site was identified on the patient's chest inferior and lateral to the venotomy. The site was anesthetized with local anesthetic and the track was anesthetized. Dermatotomy was made. The PermCath was attached to the tunneling device and tunneled between the dermatotomy to the venotomy. Over the 0.035 inch wire, serial dilatation was performed with ultimate placement of a peel-away sheath. The catheter was advanced through the peel- away sheath after the wire was removed and positioned centrally under fluoroscopic guidance. The peel-away sheath was removed. 4-0 Vicryl suture was used to close the venotomy and Dermabond was then applied. 2-0 Ethilon suture was used to secure the catheter at the dermatotomy. The catheter was charged with heparin per protocol. The patient was transferred from the angiography suite back to the floor in stable condition. FINDINGS: 1. Excellent flow was obtained through the dialysis catheter with 20 mL syringes. 2. The catheter tip is in the right atrium. IMPRESSION: 1. Successful ultrasound and fluoroscopically guided placement of a right internal jugular tunneled cuffed hemodialysis catheter.
[2016-10-26] MEDS: BABY ASPIRIN PO SCH (12:05)
[2016-10-26] MEDS: PROTONIX PO SCH (12:05)
[2016-10-26 13:52] LABS: Albumin 2.6 g/dL (3.9-5)
--- NOTE | 2016-10-26 14:26 | Vascular Lab Report ---
MISCELLANEOUS VESSEL IDENTIFICATION: COMMENTS ON THE SCAN: The right internal jugular vein was identified and under real-time ultrasound guidance was cannulated. IMPRESSION: Successful ultrasound guided vein cannulation.
--- NOTE | 2016-10-26 14:46 | Progress Note ---
Assessment and Plan Assessment and plan: Acute on chronic CHF exacerbation Acute on chronic kidney injury Sick sinus syndrome Status post pacemaker placement Hepatitis B surface antigen positive - Fluid overloaded is not responding Lasix - Cardiology consult appreciated - Nephrology consult appreciated - permCath placed - Will have hemodialysis today Disposition - continue inpatient care History Interval history: patient was seen and evaluated this morning, patient didn't have any new complaints. Patient is going to have PermCath placement and dialysis. Hospitalist Physical - Physical exam Narrative exam: Not in cardiopulmonary distress. The patient is obese. Vital signs as documented. Head exam is unremarkable. No scleral icterus . Neck is without jugular venous distension, thyromegaly, or carotid bruits. Lungs are clear to auscultation. Cardiac exam reveals regular rate and Rhythm. First and second heart sounds normal. No murmurs, rubs or gallops. Abdominal exam reveals obese abdomen. Extremities are significant for pedal and pretibial edema. DROP TESTER: Alert and oriented 3. No focal weakness. - Constitutional Vitals: Temp Pulse Resp BP Pulse Ox 97.6 F 52 L 18 86/52 100 10/26/16 14:33 10/26/16 14:33 10/26/16 14:33 10/26/16 14:33 10/26/16 10:00 General appearance: Present: mild distress, obese Results - Labs CBC & Chem 7: 10/26/16 05:42 10/26/16 05:42 Labs: Laboratory Last Values WBC 6.7 K/mm3 (4.5-11.0) 10/24/16 12:59 RBC 5.66 M/mm3 (3.65-5.03) H 10/24/16 12:59 Hgb 11.9 gm/dl (10.1-14.3) 10/26/16 05:42 Hct 41.1 % (30.3-42.9) 10/26/16 05:42 MCV 78 fl (79-97) L 10/24/16 12:59 MCH 23 pg (28-32) L 10/24/16 12:59 MCHC 29 % (30-34) L 10/24/16 12:59 RDW 19.9 % (13.2-15.2) H 10/24/16 12:59 Plt Count 177 K/mm3 (140-440) 10/24/16 12:59 [place] % (Auto) Presentation Designer 10/24/16 12:59 Add Manual Diff Complete 10/24/16 12:59 Total Counted 100 10/24/16 12:59 Seg Neuts % (Manual) 67.0 % (40.0-70.0) 10/24/16 12:59 Band Neutrophils % 0 % 10/24/16 12:59 Lymphocytes % (Manual) 24.0 % (13.4-35.0) 10/24/16 12:59 Reactive Lymphs % (Man) 0 % 10/24/16 12:59 Monocytes % (Manual) 9.0 % (0.0-7.3) H 10/24/16 12:59 Eosinophils % (Manual) 0 % (0.0-4.3) 10/24/16 12:59 Metamyelocytes % 0 % 10/24/16 12:59 Myelocytes % 0 % 10/24/16 12:59 Promyelocytes % 0 % 10/24/16 12:59 Blast Cells % 0 % 10/24/16 12:59 Nucleated RBC % 1.0 % (0.0-0.9) H 10/24/16 12:59 Seg Neutrophils # Man 4.5 K/mm3 (1.8-7.7) 10/24/16 12:59 Band Neutrophils # 0.0 K/mm3 10/24/16 12:59 Lymphocytes # (Manual) 1.6 K/mm3 (1.2-5.4) 10/24/16 12:59 Abs React Lymphs (Man) 0.0 K/mm3 10/24/16 12:59 Monocytes # (Manual) 0.6 K/mm3 (0.0-0.8) 10/24/16 12:59 Eosinophils # (Manual) 0.0 K/mm3 (0.0-0.4) 10/24/16 12:59 Basophils # (Manual) 0.0 K/mm3 (0.0-0.1) 10/24/16 12:59 Metamyelocytes # 0.0 K/mm3 10/24/16 12:59 Myelocytes # 0.0 K/mm3 10/24/16 12:59 Promyelocytes # 0.0 K/mm3 10/24/16 12:59 Blast Cells # 0.0 K/mm3 10/24/16 12:59 WBC Morphology Not Reportable 10/24/16 12:59 Hypersegmented Neuts Not Reportable 10/24/16 12:59 Hyposegmented Neuts Not Reportable 10/24/16 12:59 Hypogranular Neuts Not Reportable 10/24/16 12:59 Smudge Cells Not Reportable 10/24/16 12:59 Toxic Granulation Not Reportable 10/24/16 12:59 Toxic Vacuolation Not Reportable 10/24/16 12:59 Dohle Bodies Not Reportable 10/24/16 12:59 Pelger-Huet Anomaly Not Reportable 10/24/16 12:59 Sara Rods Not Reportable 10/24/16 12:59 Platelet Estimate Appears normal 10/24/16 12:59 Clumped Platelets Not Reportable 10/24/16 12:59 Plt Clumps, EDTA Not Reportable 10/24/16 12:59 Large Platelets Not Reportable 10/24/16 12:59 Giant Platelets Not Reportable 10/24/16 12:59 Platelet Satelliting Not Reportable 10/24/16 12:59 Plt Morphology Comment Not Reportable 10/24/16 12:59 RBC Morphology Not Reportable 10/24/16 12:59 Dimorphic RBCs Not Reportable 10/24/16 12:59 Polychromasia Not Reportable 10/24/16 12:59 Hypochromasia 1+ 10/24/16 12:59 Poikilocytosis Not Reportable 10/24/16 12:59 Anisocytosis Not Reportable 10/24/16 12:59 Microcytosis Not Reportable 10/24/16 12:59 Macrocytosis Not Reportable 10/24/16 12:59 Spherocytes Not Reportable 10/24/16 12:59 Pappenheimer Bodies Not Reportable 10/24/16 12:59 Sickle Cells Not Reportable 10/24/16 12:59 Target Cells Not Reportable 10/24/16 12:59 Tear Drop Cells Not Reportable 10/24/16 12:59 Ovalocytes Rare 10/24/16 12:59 Helmet Cells Not Reportable 10/24/16 12:59 [place] Bodies Not Reportable 10/24/16 12:59 [place] Rings Not Reportable 10/24/16 12:59 [place] Cells Not Reportable 10/24/16 12:59 Bite Cells Not Reportable 10/24/16 12:59 Crenated Cell Not Reportable 10/24/16 12:59 Elliptocytes Not Reportable 10/24/16 12:59 Acanthocytes (Spur) Not Reportable 10/24/16 12:59 Rouleaux Not Reportable 10/24/16 12:59 Hemoglobin C Crystals Not Reportable 10/24/16 12:59 Schistocytes Not Reportable 10/24/16 12:59 Malaria parasites Not Reportable 10/24/16 12:59 Osvaldo Bodies Not Reportable 10/24/16 12:59 Hem Pathologist Commnt No 10/24/16 12:59 PT 16.2 Sec. (12.2-14.9) H 10/24/16 13:11 INR 1.31 (0.87-1.13) H 10/24/16 13:11 APTT 25.6 Sec. (24.2-36.6) 10/24/16 13:11 D-Dimer 5394.25 ng/mlDDU (0-234) H 10/24/16 20:17 Sodium 141 mmol/L (137-145) 10/26/16 05:42 Potassium 5.1 mmol/L (3.6-5.0) H 10/26/16 05:42 Chloride 103.2 mmol/L (98-107) 10/26/16 05:42 Carbon Dioxide 19 mmol/L (22-30) L 10/26/16 05:42 Anion Gap 24 mmol/L 10/26/16 05:42 BUN 56 mg/dL (7-17) H 10/26/16 05:42 Creatinine 7.9 mg/dL (0.7-1.2) H 10/26/16 05:42 Estimated GFR 6 ml/min 10/26/16 05:42 BUN/Creatinine Ratio 7.08 % 10/26/16 05:42 Glucose 60 mg/dL (65-100) L 10/26/16 05:42 Calcium 8.1 mg/dL (8.4-10.2) L 10/26/16 05:42 Phosphorus 8.1 mg/dL (2.5-4.5) H 10/26/16 05:42 Total Creatine Kinase 73 units/L (30-135) 10/24/16 22:47 CK-MB (CK-2) 5.2 ng/mL (0.0-4.0) H 10/24/16 22:47 CK-MB (CK-2) Rel Index 7.1 (0-4) H 10/24/16 22:47 Troponin T 0.124 ng/mL (0.00-0.029) H* 10/25/16 10:33 NT-Pro-B Natriuret Pep > 87512 pg/mL (0-900) H 10/24/16 12:59 Albumin 2.6 g/dL (3.9-5) L 10/26/16 05:45 Triglycerides 107 mg/dL (2-149) 10/24/16 12:59 Cholesterol 147 mg/dL (50-199) 10/24/16 12:59 LDL Cholesterol Direct 52 mg/dL (50-130) 10/24/16 12:59 HDL Cholesterol 74 mg/dL (40-59) H 10/24/16 12:59 Cholesterol/HDL Ratio 1.98 % 10/24/16 12:59 Urine Color Yellow (Yellow) 10/25/16 23:30 Urine Turbidity Turbid (Clear) 10/25/16 23:30 Urine pH 5.0 (5.0-7.0) 10/25/16 23:30 Ur Specific [place] 1.023 (1.003-1.030) 10/25/16 23:30 Urine Protein 100 mg/dl mg/dL (Negative) 10/25/16 23:30 Urine Glucose (UA) 50 mg/dL (Negative) 10/25/16 23:30 Urine Ketones Tr mg/dL (Negative) 10/25/16 23:30 Urine Blood Lg (Negative) 10/25/16 23:30 Urine Nitrite Neg (Negative) 10/25/16 23:30 Urine Bilirubin Neg (Negative) 10/25/16 23:30 Urine Urobilinogen < 2.0 mg/dL (<2.0) 10/25/16 23:30 Ur Leukocyte Esterase Mod (Negative) 10/25/16 23:30 Urine WBC (Auto) > 182.0 /HPF (0.0-6.0) H 10/25/16 23:30 Urine RBC (Auto) 134.0 /HPF (0.0-6.0) 10/25/16 23:30 U Epithel Cells (Auto) 6.0 /HPF (0-13.0) 10/25/16 23:30 Urine Bacteria (Auto) 1+ /HPF (Negative) 10/25/16 23:30 Urine WBC Clumps 3+ /HPF 10/25/16 23:30 Urine Mucus 1+ /HPF 10/25/16 23:30 Urine Creatinine 250.2 mg/dL (0.1-20.0) H 10/25/16 23:30 Urine Total Protein 119 mg/dL (5-11.8) H 10/25/16 23:30 Digoxin > 2.0 ng/mL (0.9-2.0) H 10/25/16 10:33 Hep Bs Antigen Reactive (Negative) 10/26/16 05:42 Hepatitis C Antibody Non-reactive (NonReactive) 10/26/16 05:42
[2016-10-26 15:53] LABS: Alanine Aminotransferase 21 units/L (7-56); Bilirubin,Total 0.3 mg/dL (0.1-1.2); Total Protein 5.3 g/dL (6.3-8.2)
[2016-10-26 16:11] LABS: Alkaline Phosphatase 47 units/L (35-129)
[2016-10-26 16:17] LABS: Bilirubin,Direct < 0.2 mg/dL (0-0.2); Bilirubin,Indirect 0.1 mg/dL
--- NOTE | 2016-10-26 16:31 | Consultation ---
History of Present Illness - Reason for Consult Consult date: 10/25/16 acute renal failure Requesting physician: FRIEDA KATE - History of Present Illness 81-year-old lady with a history of chronic systolic heart failure ejection fraction 30% presented on account of 2 weeks history of shortness of breath which got worse over the last 2 days. This is associated with orthopnea and paroxysmal nocturnal dyspnea. She also admits to abdominal swelling. Patient denies any chest pain or diaphoresis but admits to dizziness. She had nausea and vomiting. She admits to dietary indiscretion but has been taking her medications. On account of the worsening dyspnea she came to the emergency room for further evaluation. Patient's BUN/creatinine found to be quite elevated at 44 and 6.1 mg/dL. She was admitted in September 2016 which shortness of breath and BUN and creatinine were 25 and 2.2. Patient has not been using any non-steroidal anti-inflammatory drugs and she has not been exposed to radiocontrast. 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 denies: smoking (Used to smoke 1/2 ppd), alcohol abuse, prescription drug abuse, IV drug use Family history: cancer (Brother of Cancer), hypertension, other (Father in a MVA. Mother age 83 years ? cause. ) Medications and Allergies Allergies Allergy/AdvReac Type Severity Reaction Status Date / Time Sulfa (Sulfonamide Allergy Anaphylaxis Verified 09/18/16 16:46 Antibiotics) lipitor Allergy Angioedema Uncoded 09/20/16 21:32 Home Medications Medication Instructions Recorded Confirmed Last Taken Type Aspirin [Aspirin BABY CHEW TAB] 81 mg PO QDAY 09/18/16 10/24/16 10/23/16 History Brimonidine/Timolol 0.2-0.5% 1 drops OP Q12H 09/18/16 10/24/16 10/23/16 History [Combigan 0.2-0.5%] Carvedilol [Coreg] 6.25 mg PO BID 09/18/16 10/24/16 10/23/16 History Digoxin 125 mcg PO QDAY 09/18/16 10/24/16 10/23/16 History Losartan [Cozaar] 100 mg PO QDAY 09/18/16 10/24/16 10/23/16 History Omeprazole 20 mg PO QDAY 09/18/16 10/24/16 10/23/16 History Potassium Chloride 10 meq PO QDAY 09/18/16 10/24/16 10/23/16 History Rosuvastatin Calcium 20 mg PO QDAY 09/18/16 10/24/16 10/23/16 History amLODIPine [Norvasc] 10 mg PO DAILY 09/18/16 10/24/16 10/23/16 History hydrALAZINE [Apresoline TAB] 50 mg PO BID 09/18/16 10/24/16 10/23/16 History Furosemide [Lasix TAB] 60 mg PO BID #60 tablet 09/20/16 10/24/16 10/23/16 Rx Active Meds: Active Medications Acetaminophen (Tylenol) 650 mg PO Q4H PRN PRN Reason: Pain MILD(1-3)/Fever >100.5/GURROLA Aspirin (Baby Aspirin) 81 mg PO QDAY [facility] Last Admin: 10/26/16 12:05 Dose: 81 mg Bisacodyl (Dulcolax) 10 mg [place] QDAY PRN PRN Reason: Constipation unrelieved by MOM Brimonidine/Timolol (Combigan 0.2-0.5%) 1 drops OD Q12H [facility] Last Admin: 10/25/16 23:05 Dose: 1 drops Carvedilol (Coreg) 6.25 mg PO BID [facility] Last Admin: 10/25/16 23:05 Dose: Not Given Epoetin Trevor (Epogen) 20,000 unit IV MARIO PRN PRN Reason: hemodialysis Heparin Sodium (Porcine) (Heparin) 5,000 unit IV MARIO PRN PRN Reason: hemodialysis Sodium Chloride (Nacl 0.9%) 100 mls @ 999 mls/hr IV MARIO PRN PRN Reason: Hypotension Levofloxacin (Levaquin) 250 mg PO Q48HR [facility] Loperamide HCl (Imodium) 2 mg PO Q2H PRN PRN Reason: Diarrhea Magnesium Hydroxide (Milk Of Magnesia) 30 ml PO Q4H PRN PRN Reason: Constipation Miscellaneous Medication (Rosuvastatin Calcium [Rosuvastatin Calcium]) 20 mg PO HS [facility] Last Admin: 10/25/16 23:06 Dose: 20 mg Ondansetron HCl (Zofran) 4 mg IV Q8H PRN PRN Reason: Nausea And Vomiting Last Admin: 10/25/16 16:05 Dose: 4 mg Oxycodone/Acetaminophen (Percocet 5/325) 1 tab PO Q4H PRN PRN Reason: Pain, Moderate (4-6) Pantoprazole Sodium (Protonix) 20 mg PO QDAY [facility] Last Admin: 10/26/16 12:05 Dose: 20 mg Sodium Chloride (Sodium Chloride Flush Syringe 10 Ml) 10 ml IV PRN PRN PRN Reason: LINE FLUSH Review of Systems All systems: negative (Constitutional: no fever or chills. No anorexia or weight loss. HEENT: No sore throat or sinus drainage no hearing or vision impairment . Cardiovascular: See history of present illness Respiratory: No cough, sputum, shortness of breath, hemoptysis or wheezing. Gastrointestinal: She admits to a one-week history of diarrhea, no abdominal pain, hematemesis or melena. Genitourinary: No frequency urgency but admits to dysuria but no hematuria. hematologic: No abnormal bleeding or bruising. Integumentary: no pruritus or rash. Neurological: Patient is blind No headache no focal weakness or numbness, no syncope or seizures. Musculoskeletal: No joint pains no stiffness. Psychiatry: no anxiety or depression) Exam - Vital Signs Vital signs: Vital Signs Pulse Resp Pulse Ox 80 24 100 10/24/16 12:24 10/24/16 12:24 10/24/16 12:24 - Physical Exam Narrative exam: Obese, Elderly -[place] female lying in bed in no acute distress HEENT normocephalic atraumatic, blind, pink, clear oropharynx Neck supple, no thyromegaly no jugular venous distention CVS S1-S2 regular rate rhythm without murmur, rub or gallop Chest Diminished breath sounds lower zones with few rhonchi Abdomen soft , flabby, nontender no organomegaly no bruit bowel sounds present Extremities 2+ pitting edema both upper and lower extremities Genitourinary deferred Neuro awake, alert oriented x3 no gross deficit Results - Lab Results 10/26/16 05:42 10/26/16 05:42 Most recent lab results Calcium 8.1 mg/dL (8.4-10.2) L 10/26/16 05:42 Phosphorus 8.1 mg/dL (2.5-4.5) H 10/26/16 05:42 Urine Creatinine 250.2 mg/dL (0.1-20.0) H 10/25/16 23:30 Urine Total Protein 119 mg/dL (5-11.8) H 10/25/16 23:30 Assessment and Plan - Patient Problems (1) ARF (acute renal failure) Current Visit: Yes Status: Acute Qualifiers: Acute renal failure type: A Plan to address problem: Acute kidney failure possibly acute cardiorenal syndrome but need to exclude other possible causes especially acute tubular necrosis vs acute interstitial nephritis. Patient may also have progressive chronic kidney disease but the progression is to rapid I suspect some acute kidney injury. Will check serologies. Get kidney ultrasound. Quantify proteinuria. Follow-up electrolytes and renal function. Patient will need dialysis with the elevated kidney indices and volume overload not responding to diuretic. I called patient 's daughter and she agrees with the treatment plan. Understands the benefits and risks of dialysis (2) Acute on chronic systolic heart failure Current Visit: No Status: Acute (3) Metabolic acidosis Current Visit: Yes Status: Acute Plan to address problem: Hold MARICEL inhibitor with hypotension and advanced chronic kidney disease. Continue low-dose beta sukh with parameters to hold. 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 (5) Hypotension Current Visit: Yes Status: Acute Qualifiers: Hypotension type: H Trimester: T Plan to address problem: Hold AMlodipine and Hydralazine. Place parameters to hold Carvedilol
--- NOTE | 2016-10-26 16:37 | Progress Note ---
Assessment and Plan - Patient Problems (1) ARF (acute renal failure) Current Visit: Yes Status: Acute Qualifiers: Acute renal failure type: A Plan to address problem: Acute kidney failure possibly acute cardiorenal syndrome but need to exclude other possible causes especially acute tubular necrosis vs acute interstitial nephritis. Patient may also have progressive chronic kidney disease but the progression is to rapid I suspect some acute kidney injury. Patient tolerating dialysis so far. Would dialyze again tomorrow and thereafter. Reevaluate thereafter. (2) Acute on chronic systolic heart failure Current Visit: No Status: Acute Plan to address problem: Hold MARICEL inhibitor. Continue low-dose beta sukh with parameters to hold. (3) Metabolic acidosis Current Visit: Yes Status: Acute Plan to address problem: Will correct acidosis with dialysis (4) Chronic kidney disease, stage III (moderate) Current Visit: No Status: Acute Plan to address problem: Presumed hypertensive nephrosclerosis. (5) Hypotension Current Visit: Yes Status: Acute Qualifiers: Hypotension type: H Trimester: T Plan to address problem: Hold AMlodipine and Hydralazine. Place parameters to hold Carvedilol Subjective Date of service: 10/26/16 Principal diagnosis: CHF Interval history: Patient seen lying in bed on dialysis. Had permacath placed earlier. She denies any complaints. No chest pain shortness of breath or dizziness. Objective - Exam Narrative Exam: Obese, Elderly -[place] female lying in bed in no acute distress HEENT normocephalic atraumatic, blind, Neck supple, no thyromegaly no jugular venous distention CVS S1-S2 regular rate rhythm without murmur, rub or gallop Chest Diminished breath sounds lower zones Abdomen soft , flabby, nontender no organomegaly no bruit bowel sounds present Extremities 2+ pitting edema both upper and lower extremities Neuro awake, alert oriented x3 no gross deficit - Vital Signs Vital signs: Vital Signs - 12hr 10/26/16 10/26/16 10/26/16 05:44 08:00 10:00 Temperature 97.8 F 97.4 F L Pulse Rate Pulse Rate [ 46 L Left Radial] Pulse Rate [ 44 L Right Radial] Respiratory 18 18 Rate Blood Pressure Blood Pressure 80/41 103/54 [Left Radial Artery] O2 Sat by Pulse 97 98 100 Oximetry 10/26/16 10/26/16 10/26/16 14:15 14:30 14:33 Temperature 97.6 F Pulse Rate 50 L 60 52 L Pulse Rate [ Left Radial] Pulse Rate [ Right Radial] Respiratory 18 Rate Blood Pressure 102/56 128/68 86/52 Blood Pressure [Left Radial Artery] O2 Sat by Pulse Oximetry 10/26/16 10/26/16 10/26/16 14:45 15:00 15:15 Temperature Pulse Rate 60 54 L 72 Pulse Rate [ Left Radial] Pulse Rate [ Right Radial] Respiratory Rate Blood Pressure 162/56 86/48 82/52 Blood Pressure [Left Radial Artery] O2 Sat by Pulse Oximetry 10/26/16 10/26/16 10/26/16 15:30 15:45 16:00 Temperature Pulse Rate 60 62 56 L Pulse Rate [ Left Radial] Pulse Rate [ Right Radial] Respiratory Rate Blood Pressure 88/62 92/60 86/56 Blood Pressure [Left Radial Artery] O2 Sat by Pulse Oximetry 10/26/16 16:15 Temperature Pulse Rate 56 L Pulse Rate [ Left Radial] Pulse Rate [ Right Radial] Respiratory Rate Blood Pressure 90/34 Blood Pressure [Left Radial Artery] O2 Sat by Pulse Oximetry - Lab 10/26/16 05:42 10/26/16 05:42 Most recent lab results Calcium 8.1 mg/dL (8.4-10.2) L 10/26/16 05:42 Phosphorus 8.1 mg/dL (2.5-4.5) H 10/26/16 05:42 Urine Creatinine 250.2 mg/dL (0.1-20.0) H 10/25/16 23:30 Urine Total Protein 119 mg/dL (5-11.8) H 10/25/16 23:30
[2016-10-26] MEDS ORDERED: ALBURX 25% (ALBUMIN) IV PRN (17:01)
[2016-10-26] MEDS: HEPARIN IV PRN (17:10)
[2016-10-26] MEDS: LEVAQUIN PO SCH (19:22)
[2016-10-26] MEDS: NON-FORMULARY (Rosuvastatin Calcium [Rosuvastatin Calcium] 20 MG) PO SCH (22:40)
[2016-10-27 07:32] LABS: Mean Corpuscular HGB Conc 29 % (30-34); Mean Corpuscular Volume 78 fl (79-97); Platelet Count 114 K/mm3 (140-440); Red Blood Count 4.79 M/mm3 (3.65-5.03); Red Cell Distribution Width 19.6 % (13.2-15.2); White Blood Count 10.3 K/mm3 (4.5-11.0)
[2016-10-27 07:49] LABS: Hematocrit 37.1 % (30.3-42.9); Hemoglobin 10.9 gm/dl (10.1-14.3); Mean Corpuscular Hemoglobin 23 pg (28-32)
[2016-10-27 07:55] LABS: Alanine Aminotransferase 17 units/L (7-56); Albumin 2.6 g/dL (3.9-5); Albumin/Globulin Ratio 0.9 %; Alkaline Phosphatase 45 units/L (35-129); Bilirubin,Total 0.3 mg/dL (0.1-1.2); Total Protein 5.4 g/dL (6.3-8.2)
[2016-10-27 08:10] LABS: Bilirubin,Direct < 0.2 mg/dL (0-0.2)
[2016-10-27] MEDS ORDERED: COREG PO SCH ×2 (08:38→22:00)
--- NOTE | 2016-10-27 08:39 | Progress Note ---
Assessment and Plan - Patient Problems (1) ARF (acute renal failure) Current Visit: Yes Status: Acute Qualifiers: Acute renal failure type: A Plan to address problem: Acute kidney failure possibly acute cardiorenal syndrome but need to exclude other possible causes especially acute tubular necrosis vs acute interstitial nephritis. Patient may also have progressive chronic kidney disease but the progression is to rapid I suspect some acute kidney injury. We will give Albumin prior to dialysis today. Consider repeat 2-D echo with the persistent hypertension hypotension (2) Acute on chronic systolic heart failure Current Visit: No Status: Acute Plan to address problem: Hold MARICEL inhibitor. Decrease the dose of beta sukh. Consider repeat 2-D echo. (3) Metabolic acidosis Current Visit: Yes Status: Acute Plan to address problem: Will correct acidosis with dialysis (4) Chronic kidney disease, stage III (moderate) Current Visit: No Status: Acute Plan to address problem: Presumed hypertensive nephrosclerosis. (5) Hypotension Current Visit: Yes Status: Acute Qualifiers: Hypotension type: H Trimester: T Plan to address problem: Hold hypotensive medications with parameters to hold Carvedilol. Follow-up urine culture. Continue empiric antibiotics Subjective Date of service: 10/27/16 Principal diagnosis: CHF Interval history: Patient seen lying in bed on dialysis. Had Dialysis yesterday. Hypotension was worse on dialysis and it had to be stopped during the last 30 minutes. She denies any complaints. No chest pain shortness of breath or dizziness. Objective - Exam Narrative Exam: Obese, Elderly -[place] female lying in bed in no acute distress HEENT normocephalic atraumatic, blind, Neck supple, no thyromegaly no jugular venous distention CVS S1-S2 regular rate rhythm without murmur, rub or gallop Chest Diminished breath sounds lower zones Abdomen soft , flabby, nontender no organomegaly no bruit bowel sounds present Extremities 1-2+ pitting edema both upper and lower extremities Neuro awake, alert oriented x3 no gross deficit - Vital Signs Vital signs: Vital Signs - 12hr 10/26/16 10/26/16 10/26/16 22:00 22:05 22:20 Temperature 97.7 F Pulse Rate [ 60 80 Apical] Respiratory 18 20 Rate Respiratory 18 Rate [Chest] Blood Pressure 100/41 [Left Radial Artery] O2 Sat by Pulse 98 96 90 Oximetry 10/27/16 10/27/16 10/27/16 02:17 05:45 08:26 Temperature 97.9 F 98.6 F 98.5 F Pulse Rate [ 82 62 44 L Apical] Respiratory 20 20 16 Rate Respiratory Rate [Chest] Blood Pressure 100/47 81/50 83/54 [Left Radial Artery] O2 Sat by Pulse 96 95 Oximetry - Lab 10/27/16 06:30 10/26/16 05:42 Most recent lab results Calcium 8.1 mg/dL (8.4-10.2) L 10/26/16 05:42 Phosphorus 8.1 mg/dL (2.5-4.5) H 10/26/16 05:42 Urine Creatinine 250.2 mg/dL (0.1-20.0) H 10/25/16 23:30 Urine Total Protein 119 mg/dL (5-11.8) H 10/25/16 23:30
[2016-10-27] MEDS ORDERED: ALBURX 25% (ALBUMIN) IV PRN (08:44)
[2016-10-27 09:46] LABS: Basophils % (Manual) 0 % (0.0-1.8); Blastocytes % (Manual) 0 %; Eosinophils % (Manual) 0 % (0.0-4.3); Hypochromasia 1+
[2016-10-27 09:47] LABS: Diff Status Complete; Platelet Estimate Appears Decreased
[2016-10-27] MEDS: BABY ASPIRIN PO SCH (10:52)
[2016-10-27] MEDS: COMBIGAN 0.2-0.5% OD SCH ×2 (10:53→23:00)
[2016-10-27] MEDS: PROTONIX PO SCH (10:53)
[2016-10-27] MEDS ORDERED: NACL 0.9 (PRIMING MACHINE ONLY DIALYSIS) MC ONE (12:48)
[2016-10-27] MEDS: HEPARIN IV PRN (14:26)
--- NOTE | 2016-10-27 15:31 | Progress Note ---
Assessment and Plan Assessment and plan: Acute on chronic CHF exacerbation Acute on chronic kidney injury Sick sinus syndrome Status post pacemaker placement Hepatitis B surface antigen positive - Fluid overloaded is not responding Lasix - Cardiology consult appreciated - Nephrology consult appreciated - permCath placed - Patient had hemodialysis this morning and 2 L of fluid was taken out Disposition - continue inpatient care History Interval history: patient was seen and evaluated this morning, patient didn't have any new complaints. Patient has perm cath and dialyzed and 2 litres of fluid was taken out. Hospitalist Physical - Physical exam Narrative exam: Not in cardiopulmonary distress. The patient is obese. Vital signs as documented. Head exam is unremarkable. No scleral icterus . Neck is without jugular venous distension, thyromegaly, or carotid bruits. Lungs are clear to auscultation. Cardiac exam reveals regular rate and Rhythm. First and second heart sounds normal. No murmurs, rubs or gallops. Abdominal exam reveals obese abdomen. Extremities are significant for pedal and pretibial edema. [employer]: Patient is sleepy. No focal weakness. - Constitutional Vitals: Temp Pulse Resp BP Pulse Ox 97.5 F L 78 20 112/69 98 10/27/16 14:10 10/27/16 14:10 10/27/16 14:10 10/27/16 14:10 10/27/16 10:00 General appearance: Present: mild distress, obese Results - Labs CBC & Chem 7: 10/27/16 06:30 10/26/16 05:42 Labs: Laboratory Last Values WBC 10.3 K/mm3 (4.5-11.0) 10/27/16 06:30 RBC 4.79 M/mm3 (3.65-5.03) 10/27/16 06:30 Hgb 10.9 gm/dl (10.1-14.3) 10/27/16 06:30 Hct 37.1 % (30.3-42.9) 10/27/16 06:30 MCV 78 fl (79-97) L 10/27/16 06:30 MCH 23 pg (28-32) L 10/27/16 06:30 MCHC 29 % (30-34) L 10/27/16 06:30 RDW 19.6 % (13.2-15.2) H 10/27/16 06:30 Plt Count 114 K/mm3 (140-440) L 10/27/16 06:30 Mchenry % (Auto) Associate Professor Of Anthropology 10/27/16 06:30 Add Manual Diff Complete 10/27/16 06:30 Total Counted 100 10/27/16 06:30 Seg Neuts % (Manual) 89.0 % (40.0-70.0) H 10/27/16 06:30 Band Neutrophils % 0 % 10/27/16 06:30 Lymphocytes % (Manual) 7.0 % (13.4-35.0) L 10/27/16 06:30 Reactive Lymphs % (Man) 0 % 10/27/16 06:30 Monocytes % (Manual) 4.0 % (0.0-7.3) 10/27/16 06:30 Eosinophils % (Manual) 0 % (0.0-4.3) 10/27/16 06:30 Basophils % (Manual) 0 % (0.0-1.8) 10/27/16 06:30 Metamyelocytes % 0 % 10/27/16 06:30 Myelocytes % 0 % 10/27/16 06:30 Promyelocytes % 0 % 10/27/16 06:30 Blast Cells % 0 % 10/27/16 06:30 Nucleated RBC % Not Reportable 10/27/16 06:30 Seg Neutrophils # Man 9.2 K/mm3 (1.8-7.7) H 10/27/16 06:30 Band Neutrophils # 0.0 K/mm3 10/27/16 06:30 Lymphocytes # (Manual) 0.7 K/mm3 (1.2-5.4) L 10/27/16 06:30 Abs React Lymphs (Man) 0.0 K/mm3 10/27/16 06:30 Monocytes # (Manual) 0.4 K/mm3 (0.0-0.8) 10/27/16 06:30 Eosinophils # (Manual) 0.0 K/mm3 (0.0-0.4) 10/27/16 06:30 Basophils # (Manual) 0.0 K/mm3 (0.0-0.1) 10/27/16 06:30 Metamyelocytes # 0.0 K/mm3 10/27/16 06:30 Myelocytes # 0.0 K/mm3 10/27/16 06:30 Promyelocytes # 0.0 K/mm3 10/27/16 06:30 Blast Cells # 0.0 K/mm3 10/27/16 06:30 WBC Morphology Not Reportable 10/27/16 06:30 Hypersegmented Neuts Not Reportable 10/27/16 06:30 Hyposegmented Neuts Not Reportable 10/27/16 06:30 Hypogranular Neuts Not Reportable 10/27/16 06:30 Smudge Cells Not Reportable 10/27/16 06:30 Toxic Granulation Not Reportable 10/27/16 06:30 Toxic Vacuolation Not Reportable 10/27/16 06:30 Dohle Bodies Not Reportable 10/27/16 06:30 Pelger-Huet Anomaly Not Reportable 10/27/16 06:30 Sara Rods Not Reportable 10/27/16 06:30 Platelet Estimate Appears decreased 10/27/16 06:30 Clumped Platelets Not Reportable 10/27/16 06:30 Plt Clumps, EDTA Not Reportable 10/27/16 06:30 Large Platelets Not Reportable 10/27/16 06:30 Giant Platelets Not Reportable 10/27/16 06:30 Platelet Satelliting Not Reportable 10/27/16 06:30 Plt Morphology Comment Not Reportable 10/27/16 06:30 RBC Morphology Not Reportable 10/27/16 06:30 Dimorphic RBCs Not Reportable 10/27/16 06:30 Polychromasia Not Reportable 10/27/16 06:30 Hypochromasia 1+ 10/27/16 06:30 Poikilocytosis Not Reportable 10/27/16 06:30 Anisocytosis Not Reportable 10/27/16 06:30 Microcytosis Not Reportable 10/27/16 06:30 Macrocytosis Not Reportable 10/27/16 06:30 Spherocytes Not Reportable 10/27/16 06:30 Pappenheimer Bodies Not Reportable 10/27/16 06:30 Sickle Cells Not Reportable 10/27/16 06:30 Target Cells Not Reportable 10/27/16 06:30 Tear Drop Cells Not Reportable 10/27/16 06:30 Ovalocytes Not Reportable 10/27/16 06:30 Helmet Cells Not Reportable 10/27/16 06:30 [place] Bodies Not Reportable 10/27/16 06:30 [place] Rings Not Reportable 10/27/16 06:30 [place] Cells Not Reportable 10/27/16 06:30 Bite Cells Not Reportable 10/27/16 06:30 Crenated Cell Not Reportable 10/27/16 06:30 Elliptocytes Not Reportable 10/27/16 06:30 Acanthocytes (Spur) Not Reportable 10/27/16 06:30 Rouleaux Not Reportable 10/27/16 06:30 Hemoglobin C Crystals Not Reportable 10/27/16 06:30 Schistocytes Not Reportable 10/27/16 06:30 Malaria parasites Not Reportable 10/27/16 06:30 Osvaldo Bodies Not Reportable 10/27/16 06:30 Hem Pathologist Commnt No 10/27/16 06:30 PT 16.2 Sec. (12.2-14.9) H 10/24/16 13:11 INR 1.31 (0.87-1.13) H 10/24/16 13:11 APTT 25.6 Sec. (24.2-36.6) 10/24/16 13:11 D-Dimer 5394.25 ng/mlDDU (0-234) H 10/24/16 20:17 Sodium 141 mmol/L (137-145) 10/26/16 05:42 Potassium 5.1 mmol/L (3.6-5.0) H 10/26/16 05:42 Chloride 103.2 mmol/L (98-107) 10/26/16 05:42 Carbon Dioxide 19 mmol/L (22-30) L 10/26/16 05:42 Anion Gap 24 mmol/L 10/26/16 05:42 BUN 56 mg/dL (7-17) H 10/26/16 05:42 Creatinine 7.9 mg/dL (0.7-1.2) H 10/26/16 05:42 Estimated GFR 6 ml/min 10/26/16 05:42 BUN/Creatinine Ratio 7.08 % 10/26/16 05:42 Glucose 60 mg/dL (65-100) L 10/26/16 05:42 Calcium 8.1 mg/dL (8.4-10.2) L 10/26/16 05:42 Phosphorus 8.1 mg/dL (2.5-4.5) H 10/26/16 05:42 Total Bilirubin 0.3 mg/dL (0.1-1.2) 10/27/16 06:30 Direct Bilirubin < 0.2 mg/dL (0-0.2) 10/27/16 06:30 Indirect Bilirubin 0.1 mg/dL 10/26/16 05:45 AST 19 units/L (5-40) 10/27/16 06:30 ALT 17 units/L (7-56) 10/27/16 06:30 Alkaline Phosphatase 45 units/L (35-129) 10/27/16 06:30 Total Creatine Kinase 73 units/L (30-135) 10/24/16 22:47 CK-MB (CK-2) 5.2 ng/mL (0.0-4.0) H 10/24/16 22:47 CK-MB (CK-2) Rel Index 7.1 (0-4) H 10/24/16 22:47 Troponin T 0.124 ng/mL (0.00-0.029) H* 10/25/16 10:33 NT-Pro-B Natriuret Pep > 76661 pg/mL (0-900) H 10/24/16 12:59 Total Protein 5.4 g/dL (6.3-8.2) L 10/27/16 06:30 Albumin 2.6 g/dL (3.9-5) L 10/27/16 06:30 Albumin/Globulin Ratio 0.9 % 10/27/16 06:30 Triglycerides 107 mg/dL (2-149) 10/24/16 12:59 Cholesterol 147 mg/dL (50-199) 10/24/16 12:59 LDL Cholesterol Direct 52 mg/dL (50-130) 10/24/16 12:59 HDL Cholesterol 74 mg/dL (40-59) H 10/24/16 12:59 Cholesterol/HDL Ratio 1.98 % 10/24/16 12:59 Urine Color Yellow (Yellow) 10/25/16 23:30 Urine Turbidity Turbid (Clear) 10/25/16 23:30 Urine pH 5.0 (5.0-7.0) 10/25/16 23:30 Ur Specific [place] 1.023 (1.003-1.030) 10/25/16 23:30 Urine Protein 100 mg/dl mg/dL (Negative) 10/25/16 23:30 Urine Glucose (UA) 50 mg/dL (Negative) 10/25/16 23:30 Urine Ketones Tr mg/dL (Negative) 10/25/16 23:30 Urine Blood Lg (Negative) 10/25/16 23:30 Urine Nitrite Neg (Negative) 10/25/16 23:30 Urine Bilirubin Neg (Negative) 10/25/16 23:30 Urine Urobilinogen < 2.0 mg/dL (<2.0) 10/25/16 23:30 Ur Leukocyte Esterase Mod (Negative) 10/25/16 23:30 Urine WBC (Auto) > 182.0 /HPF (0.0-6.0) H 10/25/16 23:30 Urine RBC (Auto) 134.0 /HPF (0.0-6.0) 10/25/16 23:30 U Epithel Cells (Auto) 6.0 /HPF (0-13.0) 10/25/16 23:30 Urine Bacteria (Auto) 1+ /HPF (Negative) 10/25/16 23:30 Urine WBC Clumps 3+ /HPF 10/25/16 23:30 Urine Mucus 1+ /HPF 10/25/16 23:30 Urine Creatinine 250.2 mg/dL (0.1-20.0) H 10/25/16 23:30 Urine Total Protein 119 mg/dL (5-11.8) H 10/25/16 23:30 Digoxin > 2.0 ng/mL (0.9-2.0) H 10/25/16 10:33 Hep Bs Antigen Reactive (Negative) 10/26/16 05:42 Hepatitis C Antibody Non-reactive (NonReactive) 10/26/16 05:42
[2016-10-27] MEDS: NON-FORMULARY (Rosuvastatin Calcium [Rosuvastatin Calcium] 20 MG) PO SCH (23:00)
[2016-10-28] MEDS ORDERED: NACL 0.9% 500 ML 500 ML ONE (00:34)
[2016-10-28] MEDS ORDERED: NACL 0.9% 250ML 250 ML IV ONE (00:34)
[2016-10-28 06:52] LABS: BUN/Creatinine Ratio 5.38; Calcium 8.1 mg/dL (8.4-10.2); Chloride 100.6 mmol/L (98-107); Potassium 4.1 mmol/L (3.6-5.0)
[2016-10-28] MEDS: BABY ASPIRIN PO SCH (09:37)
[2016-10-28] MEDS: PROTONIX PO SCH (09:37)
[2016-10-28] MEDS: LEVAQUIN PO SCH (09:37)
--- NOTE | 2016-10-28 09:54 | Progress Note ---
Assessment and Plan Assessment: Acute on chronic systolic heart failure - improving. NICMP - EF 30 - 35% on echo 09/2016 SSS s/p PPM CONRAD on CKD Hypotension H/o mitral and tricuspid valve repair (2012) Obesity Plan: Cont to hold digoxin and losartan in setting of CONRAD on CKD and BB in setting of hypotension. Cont volume optimization per HD per nephrology. The patient has been seen in conjunction with Dr. Stephens who agrees with the assessment and plan of care. Subjective Date of service: 10/28/16 Principal diagnosis: CHF Interval history: Feeling much better, s/p HD with 2L fluid removal. VSS. Paced in bigeminy pattern on tele, BPs low. Objective Last Vital Signs Temp 98.4 F 10/28/16 07:30 Pulse 76 10/28/16 07:30 Resp 20 10/28/16 07:30 BP 101/55 10/28/16 07:30 Pulse Ox 95 10/28/16 09:18 - Physical Examination General: No Apparent Distress HEENT: Positive: PERRL, Normocephaly, Mucus Membranes Moist Neck: Positive: neck supple, trachea midline Cardiac: Positive: Regular Rate, S1/S2 Lungs: Positive: Decreased Breath Sounds Neuro: Positive: Grossly Intact, Cranial Nerve 2-12 Intact Abdomen: Positive: Unremarkable, Soft, Active Bowel Sounds. Negative: Tender Skin: Positive: Clear. Negative: Rash, Wound Musculoskeletal: No Pain, Normal Range of Motion Extremities: Present: upper extr. pulses, lower extr. pulses, edema, +2 Edema ( BLE ) - Labs and Meds Comprehensive Metabolic Panel 10/28/16 Range/Units 05:42 Sodium 140 (137-145) mmol/L Potassium 4.1 (3.6-5.0) mmol/L Chloride 100.6 (98-107) mmol/L Carbon Dioxide 25 (22-30) mmol/L BUN 28 H (7-17) mg/dL Creatinine 5.2 H (0.7-1.2) mg/dL Glucose 67 (65-100) mg/dL Calcium 8.1 L (8.4-10.2) mg/dL - Imaging and Cardiology EKG: report reviewed, image reviewed Echo: report reviewed (09/18/2016: EF 30 - 35%) Cardiac cath: report reviewed (01/2013: normal coronaries, EF 40%) - Telemetry EKG Rhythm: Paced
--- NOTE | 2016-10-28 12:02 | Progress Note ---
Assessment and Plan - Patient Problems (1) ARF (acute renal failure) Current Visit: Yes Status: Acute Qualifiers: Acute renal failure type: A Plan to address problem: Acute kidney failure possibly acute cardiorenal syndrome but need to exclude other possible causes especially acute tubular necrosis vs acute interstitial nephritis. 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 Patient may also have progressive chronic kidney disease but the progression is to rapid I suspect some acute kidney injury. No renal recovery yet. Arrange for outpatient dialysis. (2) Acute on chronic systolic heart failure Current Visit: No Status: Acute Plan to address problem: MARICEL inhibitor on hold due to hypotension. Continue management (3) Metabolic acidosis Current Visit: Yes Status: Acute Plan to address problem: Acidosis improved with dialysis (4) Chronic kidney disease, stage III (moderate) Current Visit: No Status: Acute Plan to address problem: Presumed hypertensive nephrosclerosis. (5) Hypotension Current Visit: Yes Status: Acute Qualifiers: Hypotension type: H Trimester: T Plan to address problem: Hold hypotensive medications with parameters to hold Carvedilol. Blood pressure improving. Follow-up urine culture. Continue empiric antibiotics. (6) Urinary tract infection Current Visit: Yes Status: Acute Qualifiers: Urinary tract infection type: U Hematuria presence: H Indwelling urinary catheter type: I Encounter type: E Plan to address problem: Continue antibiotic. Follow-up urine culture (7) Hepatitis B infection Current Visit: Yes Status: Acute Qualifiers: Viral hepatitis chronicity: V Hepatic coma status: H Hepatitis delta agent presence: H Plan to address problem: Check hepatitis B core antigen and B surface antigen confirmation Subjective Date of service: 10/28/16 Principal diagnosis: CHF Interval history: Patient seen lying in bed on dialysis. Had Dialysis yesterday. Tolerated treatment with 2 L fluid removal. She denies any complaints. No chest pain shortness of breath or dizziness. Objective - Exam Narrative Exam: Obese, Elderly -[place] female lying in bed in no acute distress HEENT normocephalic atraumatic, blind, Neck supple, no thyromegaly no jugular venous distention CVS S1-S2 regular rate rhythm without murmur, rub or gallop Chest Diminished breath sounds lower zones Abdomen soft , flabby, nontender no organomegaly no bruit bowel sounds present Extremities 1+ pitting edema both upper and lower extremities Neuro awake, alert oriented x3 no gross deficit - Vital Signs Vital signs: Vital Signs - 12hr 10/28/16 10/28/16 10/28/16 01:00 03:00 06:33 Temperature 97.8 F 97.8 F Pulse Rate Pulse Rate [ 52 L Apical] Pulse Rate [ 50 L 61 Right Radial] Respiratory 19 21 Rate Blood Pressure 76/40 98/48 88/49 [Left Radial Artery] Blood Pressure [Right Arm] O2 Sat by Pulse 96 96 Oximetry 10/28/16 10/28/16 10/28/16 07:30 09:18 10:00 Temperature 98.4 F Pulse Rate 94 H Pulse Rate [ Apical] Pulse Rate [ 76 Right Radial] Respiratory 20 Rate Blood Pressure [Left Radial Artery] Blood Pressure 101/55 [Right Arm] O2 Sat by Pulse 93 95 Oximetry - Lab 10/27/16 06:30 10/28/16 05:42 Most recent lab results Calcium 8.1 mg/dL (8.4-10.2) L 10/28/16 05:42 Phosphorus 8.1 mg/dL (2.5-4.5) H 10/26/16 05:42 Urine Creatinine 250.2 mg/dL (0.1-20.0) H 10/25/16 23:30 Urine Total Protein 119 mg/dL (5-11.8) H 10/25/16 23:30
--- NOTE | 2016-10-28 13:25 | Progress Note ---
Assessment and Plan Assessment and plan: Acute on chronic CHF exacerbation Acute on chronic kidney injury Sick sinus syndrome Status post pacemaker placement Hepatitis B surface antigen positive UTI - Fluid overloaded - Hold losartan, digoxin and BB because of hypotension and bradycardia - Cardiology consult appreciated - Nephrology consult appreciated - Patient on hemodialysis - Gram positive rods on urine culture: continue Levaquin Disposition - continue inpatient care History Interval history: patient was seen and evaluated this morning, patient said she is feeling weak and tired. Hospitalist Physical - Physical exam Narrative exam: Not in cardiopulmonary distress. The patient is obese. Vital signs as documented. Head exam is unremarkable. No scleral icterus . Neck is without jugular venous distension, thyromegaly, or carotid bruits. Lungs are clear to auscultation. Cardiac exam reveals regular rate and Rhythm. First and second heart sounds normal. No murmurs, rubs or gallops. Abdominal exam reveals obese abdomen. Extremities are significant for pedal and pretibial edema. 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 No focal weakness. - Constitutional Vitals: Temp Pulse Resp BP Pulse Ox 98.4 F 94 H 20 101/55 95 10/28/16 07:30 10/28/16 10:00 10/28/16 07:30 10/28/16 07:30 10/28/16 09:18 General appearance: Present: mild distress, obese Results - Labs CBC & Chem 7: 10/27/16 06:30 10/28/16 05:42 Labs: Laboratory Last Values WBC 10.3 K/mm3 (4.5-11.0) 10/27/16 06:30 RBC 4.79 M/mm3 (3.65-5.03) 10/27/16 06:30 Hgb 10.9 gm/dl (10.1-14.3) 10/27/16 06:30 Hct 37.1 % (30.3-42.9) 10/27/16 06:30 MCV 78 fl (79-97) L 10/27/16 06:30 MCH 23 pg (28-32) L 10/27/16 06:30 MCHC 29 % (30-34) L 10/27/16 06:30 RDW 19.6 % (13.2-15.2) H 10/27/16 06:30 Plt Count 114 K/mm3 (140-440) L 10/27/16 06:30 [place] % (Auto) Cognos Bi Developer 10/27/16 06:30 Add Manual Diff Complete 10/27/16 06:30 Total Counted 100 10/27/16 06:30 Seg Neuts % (Manual) 89.0 % (40.0-70.0) H 10/27/16 06:30 Band Neutrophils % 0 % 10/27/16 06:30 Lymphocytes % (Manual) 7.0 % (13.4-35.0) L 10/27/16 06:30 Reactive Lymphs % (Man) 0 % 10/27/16 06:30 Monocytes % (Manual) 4.0 % (0.0-7.3) 10/27/16 06:30 Eosinophils % (Manual) 0 % (0.0-4.3) 10/27/16 06:30 Basophils % (Manual) 0 % (0.0-1.8) 10/27/16 06:30 Metamyelocytes % 0 % 10/27/16 06:30 Myelocytes % 0 % 10/27/16 06:30 Promyelocytes % 0 % 10/27/16 06:30 Blast Cells % 0 % 10/27/16 06:30 Nucleated RBC % Not Reportable 10/27/16 06:30 Seg Neutrophils # Man 9.2 K/mm3 (1.8-7.7) H 10/27/16 06:30 Band Neutrophils # 0.0 K/mm3 10/27/16 06:30 Lymphocytes # (Manual) 0.7 K/mm3 (1.2-5.4) L 10/27/16 06:30 Abs React Lymphs (Man) 0.0 K/mm3 10/27/16 06:30 Monocytes # (Manual) 0.4 K/mm3 (0.0-0.8) 10/27/16 06:30 Eosinophils # (Manual) 0.0 K/mm3 (0.0-0.4) 10/27/16 06:30 Basophils # (Manual) 0.0 K/mm3 (0.0-0.1) 10/27/16 06:30 Metamyelocytes # 0.0 K/mm3 10/27/16 06:30 Myelocytes # 0.0 K/mm3 10/27/16 06:30 Promyelocytes # 0.0 K/mm3 10/27/16 06:30 Blast Cells # 0.0 K/mm3 10/27/16 06:30 WBC Morphology Not Reportable 10/27/16 06:30 Hypersegmented Neuts Not Reportable 10/27/16 06:30 Hyposegmented Neuts Not Reportable 10/27/16 06:30 Hypogranular Neuts Not Reportable 10/27/16 06:30 Smudge Cells Not Reportable 10/27/16 06:30 Toxic Granulation Not Reportable 10/27/16 06:30 Toxic Vacuolation Not Reportable 10/27/16 06:30 Dohle Bodies Not Reportable 10/27/16 06:30 Pelger-Huet Anomaly Not Reportable 10/27/16 06:30 Sara Rods Not Reportable 10/27/16 06:30 Platelet Estimate Appears decreased 10/27/16 06:30 Clumped Platelets Not Reportable 10/27/16 06:30 Plt Clumps, EDTA Not Reportable 10/27/16 06:30 Large Platelets Not Reportable 10/27/16 06:30 Giant Platelets Not Reportable 10/27/16 06:30 Platelet Satelliting Not Reportable 10/27/16 06:30 Plt Morphology Comment Not Reportable 10/27/16 06:30 RBC Morphology Not Reportable 10/27/16 06:30 Dimorphic RBCs Not Reportable 10/27/16 06:30 Polychromasia Not Reportable 10/27/16 06:30 Hypochromasia 1+ 10/27/16 06:30 Poikilocytosis Not Reportable 10/27/16 06:30 Anisocytosis Not Reportable 10/27/16 06:30 Microcytosis Not Reportable 10/27/16 06:30 Macrocytosis Not Reportable 10/27/16 06:30 Spherocytes Not Reportable 10/27/16 06:30 Pappenheimer Bodies Not Reportable 10/27/16 06:30 Sickle Cells Not Reportable 10/27/16 06:30 Target Cells Not Reportable 10/27/16 06:30 Tear Drop Cells Not Reportable 10/27/16 06:30 Ovalocytes Not Reportable 10/27/16 06:30 Helmet Cells Not Reportable 10/27/16 06:30 Chappell-Glasford Bodies Not Reportable 10/27/16 06:30 [place] Rings Not Reportable 10/27/16 06:30 [place] Cells Not Reportable 10/27/16 06:30 Bite Cells Not Reportable 10/27/16 06:30 Crenated Cell Not Reportable 10/27/16 06:30 Elliptocytes Not Reportable 10/27/16 06:30 Acanthocytes (Spur) Not Reportable 10/27/16 06:30 Rouleaux Not Reportable 10/27/16 06:30 Hemoglobin C Crystals Not Reportable 10/27/16 06:30 Schistocytes Not Reportable 10/27/16 06:30 Malaria parasites Not Reportable 10/27/16 06:30 Osvaldo Bodies Not Reportable 10/27/16 06:30 Hem Pathologist Commnt No 10/27/16 06:30 PT 16.2 Sec. (12.2-14.9) H 10/24/16 13:11 INR 1.31 (0.87-1.13) H 10/24/16 13:11 APTT 25.6 Sec. (24.2-36.6) 10/24/16 13:11 D-Dimer 5394.25 ng/mlDDU (0-234) H 10/24/16 20:17 Sodium 140 mmol/L (137-145) 10/28/16 05:42 Potassium 4.1 mmol/L (3.6-5.0) 10/28/16 05:42 Chloride 100.6 mmol/L (98-107) 10/28/16 05:42 Carbon Dioxide 25 mmol/L (22-30) 10/28/16 05:42 Anion Gap 19 mmol/L 10/28/16 05:42 BUN 28 mg/dL (7-17) H 10/28/16 05:42 Creatinine 5.2 mg/dL (0.7-1.2) H 10/28/16 05:42 Estimated GFR 10 ml/min 10/28/16 05:42 BUN/Creatinine Ratio 5.38 % 10/28/16 05:42 Glucose 67 mg/dL (65-100) 10/28/16 05:42 Calcium 8.1 mg/dL (8.4-10.2) L 10/28/16 05:42 Phosphorus 8.1 mg/dL (2.5-4.5) H 10/26/16 05:42 Total Bilirubin 0.3 mg/dL (0.1-1.2) 10/27/16 06:30 Direct Bilirubin < 0.2 mg/dL (0-0.2) 10/27/16 06:30 Indirect Bilirubin 0.1 mg/dL 10/26/16 05:45 AST 19 units/L (5-40) 10/27/16 06:30 ALT 17 units/L (7-56) 10/27/16 06:30 Alkaline Phosphatase 45 units/L (35-129) 10/27/16 06:30 Total Creatine Kinase 73 units/L (30-135) 10/24/16 22:47 CK-MB (CK-2) 5.2 ng/mL (0.0-4.0) H 10/24/16 22:47 CK-MB (CK-2) Rel Index 7.1 (0-4) H 10/24/16 22:47 Troponin T 0.124 ng/mL (0.00-0.029) H* 10/25/16 10:33 NT-Pro-B Natriuret Pep > 39951 pg/mL (0-900) H 10/24/16 12:59 Total Protein 5.4 g/dL (6.3-8.2) L 10/27/16 06:30 Albumin 2.6 g/dL (3.9-5) L 10/27/16 06:30 Albumin/Globulin Ratio 0.9 % 10/27/16 06:30 Triglycerides 107 mg/dL (2-149) 10/24/16 12:59 Cholesterol 147 mg/dL (50-199) 10/24/16 12:59 LDL Cholesterol Direct 52 mg/dL (50-130) 10/24/16 12:59 HDL Cholesterol 74 mg/dL (40-59) H 10/24/16 12:59 Cholesterol/HDL Ratio 1.98 % 10/24/16 12:59 Urine Color Yellow (Yellow) 10/25/16 23:30 Urine Turbidity Turbid (Clear) 10/25/16 23:30 Urine pH 5.0 (5.0-7.0) 10/25/16 23:30 Ur Specific [place] 1.023 (1.003-1.030) 10/25/16 23:30 Urine Protein 100 mg/dl mg/dL (Negative) 10/25/16 23:30 Urine Glucose (UA) 50 mg/dL (Negative) 10/25/16 23:30 Urine Ketones Tr mg/dL (Negative) 10/25/16 23:30 Urine Blood Lg (Negative) 10/25/16 23:30 Urine Nitrite Neg (Negative) 10/25/16 23:30 Urine Bilirubin Neg (Negative) 10/25/16 23:30 Urine Urobilinogen < 2.0 mg/dL (<2.0) 10/25/16 23:30 Ur Leukocyte Esterase Mod (Negative) 10/25/16 23:30 Urine WBC (Auto) > 182.0 /HPF (0.0-6.0) H 10/25/16 23:30 Urine RBC (Auto) 134.0 /HPF (0.0-6.0) 10/25/16 23:30 U Epithel Cells (Auto) 6.0 /HPF (0-13.0) 10/25/16 23:30 Urine Bacteria (Auto) 1+ /HPF (Negative) 10/25/16 23:30 Urine WBC Clumps 3+ /HPF 10/25/16 23:30 Urine Mucus 1+ /HPF 10/25/16 23:30 Urine Creatinine 250.2 mg/dL (0.1-20.0) H 10/25/16 23:30 Urine Total Protein 119 mg/dL (5-11.8) H 10/25/16 23:30 Digoxin > 2.0 ng/mL (0.9-2.0) H 10/25/16 10:33 Hep Bs Antigen Reactive (Negative) 10/26/16 05:42 Hepatitis C Antibody Non-reactive (NonReactive) 10/26/16 05:42
[2016-10-28] MEDS: COMBIGAN 0.2-0.5% OD SCH (22:45)
[2016-10-28] MEDS: NON-FORMULARY (Rosuvastatin Calcium [Rosuvastatin Calcium] 20 MG) PO SCH (22:57)
[2016-10-29 06:22] LABS: BUN/Creatinine Ratio 5.53; Calcium 7.8 mg/dL (8.4-10.2); Chloride 99.7 mmol/L (98-107); Potassium 4.3 mmol/L (3.6-5.0)
--- NOTE | 2016-10-29 10:51 | Progress Note ---
Assessment and Plan Acute on chronic systolic heart failure - improving. NICMP - EF 30 - 35% on echo 09/2016 SSS s/p PPM CONRAD on CKD Hypotension H/o mitral and tricuspid valve repair (2012) Obesity Recommend continue hemodialysis to maintain euvolemic status for decomp systolic heart failure. Patient in view of low blood pressures unable tolerate beta sukh or MARICEL or ARB Subjective Date of service: 10/29/16 Principal diagnosis: CHF Interval history: Patient lying in dialysis and no acute shortness of breath Objective Vital Signs Temp Pulse Pulse Pulse Resp BP BP 10/29/16 08:00 97.9 F 78 20 94/61 10/29/16 06:20 97.8 F 75 18 72/43 10/29/16 00:00 98.1 F 60 18 99/53 10/28/16 22:00 56 L 18 10/28/16 21:01 10/28/16 20:00 98.2 F 43 L 18 91/44 10/28/16 17:35 98.4 F 80 20 106/54 10/28/16 13:50 86/43 10/28/16 12:55 98.9 F 54 L 20 86/47 Pulse Ox 10/29/16 08:00 100 10/29/16 06:20 97 10/29/16 00:00 97 10/28/16 22:00 98 10/28/16 21:01 97 10/28/16 20:00 97 10/28/16 17:35 96 10/28/16 13:50 10/28/16 12:55 97 - Physical Examination General: No Apparent Distress HEENT: Positive: PERRL, Normocephaly, Mucus Membranes Moist Neck: Positive: neck supple, trachea midline Cardiac: Positive: Regular Rate Lungs: Positive: clear to auscultation Neuro: Positive: Grossly Intact, Cranial Nerve 2-12 Intact Abdomen: Positive: Unremarkable, Soft, Active Bowel Sounds. Negative: Tender Skin: Positive: Clear. Negative: Rash, Wound Musculoskeletal: No Pain, Normal Range of Motion Extremities: Present: upper extr. pulses, lower extr. pulses. Absent: edema - Labs and Meds Comprehensive Metabolic Panel 10/29/16 Range/Units 04:20 Sodium 140 (137-145) mmol/L Potassium 4.3 (3.6-5.0) mmol/L Chloride 99.7 (98-107) mmol/L Carbon Dioxide 24 (22-30) mmol/L BUN 36 H (7-17) mg/dL Creatinine 6.5 H (0.7-1.2) mg/dL Glucose 81 (65-100) mg/dL Calcium 7.8 L (8.4-10.2) mg/dL - Imaging and Cardiology EKG: report reviewed, image reviewed Echo: report reviewed (09/18/2016: EF 30 - 35%) Cardiac cath: report reviewed (01/2013: normal coronaries, EF 40%) - Telemetry EKG Rhythm: Paced
[2016-10-29] MEDS: HEPARIN IV PRN (13:07)
--- NOTE | 2016-10-29 13:33 | Progress Note ---
Assessment and Plan (1) ARF (acute renal failure) on underlying CKD III Current Visit: Yes Status: Acute Qualifiers: Acute renal failure type: A Plan to address problem: Acute kidney failure possibly acute cardiorenal syndrome but need to exclude other possible causes especially acute tubular necrosis vs acute interstitial nephritis. No renal recovery yet. Outpatient dialysis arranged at [facility]. Start date on Tuesday 10/31. (2) Acute on chronic systolic heart failure Current Visit: No Status: Acute Plan to address problem: MARICEL inhibitor on hold due to hypotension. Continue management (3) Metabolic acidosis Current Visit: Yes Status: Acute Plan to address problem: Acidosis improved with dialysis (4) Hypotension Current Visit: Yes Status: Acute Qualifiers: Hypotension type: H Trimester: T Plan to address problem: Blood pressure improving. Off antihypertensives. Continue empiric antibiotics. (6) Urinary tract infection Current Visit: Yes Status: Acute Qualifiers: Urinary tract infection type: U Hematuria presence: H Indwelling urinary catheter type: I Encounter type: E Plan to address problem: Continue antibiotic. Follow-up urine culture (7) Hepatitis B infection Current Visit: Yes Status: Acute Qualifiers: Viral hepatitis chronicity: V Hepatic coma status: H Hepatitis delta agent presence: H Plan to address problem: Check hepatitis B core antigen and B surface antigen confirmation Subjective Date of service: 10/29/16 Principal diagnosis: CHF Interval history: No new changes. S/p HD today Objective - Exam Narrative Exam: Obese, Elderly -[place] female lying in bed in no acute distress HEENT normocephalic atraumatic, blind, Neck supple, no thyromegaly no jugular venous distention CVS S1-S2 regular rate rhythm without murmur, rub or gallop Chest Diminished breath sounds lower zones Abdomen soft , flabby, nontender no organomegaly no bruit bowel sounds present Extremities 1+ pitting edema both upper and lower extremities Neuro awake, alert oriented x3 no gross deficit - Vital Signs Vital signs: Vital Signs - 12hr 10/29/16 10/29/16 10/29/16 06:20 08:00 10:00 Temperature 97.8 F 97.9 F 98.2 F Pulse Rate 78 Pulse Rate [ 78 Apical] Pulse Rate [ 75 Right Radial] Respiratory 18 20 16 Rate Blood Pressure 101/60 Blood Pressure 72/43 94/61 [Right Arm] O2 Sat by Pulse 97 100 Oximetry 0410/29/16 10/29/16 10:15 10:30 10:45 Temperature Pulse Rate 78 61 64 Pulse Rate [ Apical] Pulse Rate [ Right Radial] Respiratory Rate Blood Pressure 101/60 103/65 111/50 Blood Pressure [Right Arm] O2 Sat by Pulse Oximetry 10/29/16 10/29/16 10/29/16 11:00 11:15 11:30 Temperature Pulse Rate 63 61 59 L Pulse Rate [ Apical] Pulse Rate [ Right Radial] Respiratory Rate Blood Pressure 104/58 93/52 93/57 Blood Pressure [Right Arm] O2 Sat by Pulse Oximetry 10/29/16 10/29/16 10/29/16 11:45 12:00 12:15 Temperature Pulse Rate 60 78 53 L Pulse Rate [ Apical] Pulse Rate [ Right Radial] Respiratory Rate Blood Pressure 95/55 94/55 110/60 Blood Pressure [Right Arm] O2 Sat by Pulse Oximetry 10/29/16 10/29/16 12:30 12:49 Temperature Pulse Rate 60 64 Pulse Rate [ Apical] Pulse Rate [ Right Radial] Respiratory Rate Blood Pressure 113/53 110/58 Blood Pressure [Right Arm] O2 Sat by Pulse Oximetry - Lab 10/27/16 06:30 10/29/16 04:20 Most recent lab results Calcium 7.8 mg/dL (8.4-10.2) L 10/29/16 04:20 Phosphorus 8.1 mg/dL (2.5-4.5) H 10/26/16 05:42 Urine Creatinine 250.2 mg/dL (0.1-20.0) H 10/25/16 23:30 Urine Total Protein 119 mg/dL (5-11.8) H 10/25/16 23:30
[2016-10-29] MEDS ORDERED: NACL 0.9 (PRIMING MACHINE ONLY DIALYSIS) MC ONE (15:12)
[2016-10-29] MEDS: COMBIGAN 0.2-0.5% OD SCH ×3 (15:27→22:06)
[2016-10-29] MEDS: PROTONIX PO SCH (15:28)
[2016-10-29] MEDS: BABY ASPIRIN PO SCH (15:28)
[2016-10-29] MEDS: NON-FORMULARY (Rosuvastatin Calcium [Rosuvastatin Calcium] 20 MG) PO SCH (22:08)
[2016-10-30 06:55] LABS: Calcium 7.9 mg/dL (8.4-10.2); Potassium 4.2 mmol/L (3.6-5.0)
--- NOTE | 2016-10-30 09:12 | Progress Note ---
Assessment and Plan (1) ARF (acute renal failure) on underlying CKD III Current Visit: Yes Status: Acute Qualifiers: Acute renal failure type: A Plan to address problem: Acute kidney failure possibly acute cardiorenal syndrome but need to exclude other possible causes especially acute tubular necrosis vs acute interstitial nephritis. No renal recovery yet. Outpatient dialysis arranged at [facility]. Start date on Tuesday 10/31. (2) Acute on chronic systolic heart failure Current Visit: No Status: Acute Plan to address problem: MARICEL inhibitor on hold due to hypotension. Continue management (3) Metabolic acidosis Current Visit: Yes Status: Acute Plan to address problem: Acidosis improved with dialysis (4) Hypotension Current Visit: Yes Status: Acute Qualifiers: Hypotension type: H Trimester: T Plan to address problem: Blood pressure improving. Off antihypertensives. Continue empiric antibiotics. (6) Urinary tract infection Current Visit: Yes Status: Acute Qualifiers: Urinary tract infection type: U Hematuria presence: H Indwelling urinary catheter type: I Encounter type: E Plan to address problem: Continue antibiotic. Follow-up urine culture (7) Hepatitis B infection Current Visit: Yes Status: Acute Qualifiers: Viral hepatitis chronicity: V Hepatic coma status: H Hepatitis delta agent presence: H Plan to address problem: Check hepatitis B core antigen and B surface antigen confirmation Plan as mentioned above in addition, d/c solis catheter, d/c restriants with close monitoring Discussed with Dr Zamarripa. Subjective Date of service: 10/30/16 Principal diagnosis: CHF Interval history: SHe is on restraints-pt states that she wants restraints off. Discussed with RN who stat that pt was confused and was trying to get out of bed last night and that is the reason for the restraint. Pt now cooperative with no confusion. No SOB/CP Objective - Exam Narrative Exam: Obese, Elderly -[place] female lying in bed in no acute distress HEENT normocephalic atraumatic, blind, Neck supple, no thyromegaly no jugular venous distention CVS S1-S2 regular rate rhythm without murmur, rub or gallop Chest Diminished breath sounds lower zones Abdomen soft , flabby, nontender no organomegaly no bruit bowel sounds present Extremities 1+ pitting edema both upper and lower extremities Neuro awake, alert oriented x3 no gross deficit - Vital Signs Vital signs: Vital Signs - 12hr 10/29/16 10/29/16 10/30/16 21:33 22:36 01:53 Temperature 98.0 F 98.0 F Pulse Rate Pulse Rate [ 62 77 64 Left Radial] Respiratory 20 20 Rate Blood Pressure 88/51 99/50 110/53 [Left Radial Artery] O2 Sat by Pulse 96 96 Oximetry 10/30/16 10/30/16 10/30/16 04:00 04:35 08:18 Temperature 98.3 F Pulse Rate 76 Pulse Rate [ 63 Left Radial] Respiratory 20 Rate Blood Pressure 90/54 [Left Radial Artery] O2 Sat by Pulse 95 93 Oximetry - Lab 10/27/16 06:30 10/30/16 06:01 Most recent lab results Calcium 7.9 mg/dL (8.4-10.2) L 10/30/16 06:01 Phosphorus 8.1 mg/dL (2.5-4.5) H 10/26/16 05:42 Urine Creatinine 250.2 mg/dL (0.1-20.0) H 10/25/16 23:30 Urine Total Protein 119 mg/dL (5-11.8) H 10/25/16 23:30
--- NOTE | 2016-10-30 09:42 | Discharge Summary ---
Providers - Providers Date of Admission: 10/24/16 14:42 Date of discharge: 10/30/16 Attending physician: FRIEDA KATE MD 10/24/16 Consult to Cardiac Rehabilitation [CONS] Routine Reason For Exam: Phase I 10/25/16 08:50 Consult to Physician [CONS] Routine Consulting Provider: HENRIQUE CANNON Reason For Exam: CKD, CHF Place consult to:: Nephrology Notified:: Negro BEAULIEU Phone number called:: Was contact made?: Yes If yes, spoke with:: [employer] Time called:: 09:30 Comment:: patient may need dialysis 10/25/16 21:19 Consult to Physician [CONS] Routine Consulting Provider: ANAHI REDDY Reason For Exam: AKF needs Permacath for Hemodialysis Place consult to:: ANAHI REDDY Notified:: Leonor from answering service Phone number called:: [phone] Was contact made?: Yes If yes, spoke with:: Leonor Comment:: DR. PRESTON 10/27/16 08:39 Consult to Case Management [CONS] Routine Services Needed at Discharge: Other Notified:: sana Comment:: arrange outpatient dialysis Additional Physician Instructions: Arrange outpatient dialysis at [facility] Primary care physician: CLASSIFIER OPERATOR Hospitalization Reason for admission: Acute on chronic systolic CHF, CKD Condition: Fair Hospital course: The patient was on restraints last night, The patient is alert and oriented and I believe the agitation and confusion last night was due to sun downing and being in the hospital, that may be managed better at home in a familiar environment. I have discussed in detail about the management plan with her daughter, Ms Kelly on the phone @[phone]. I answered all questions and concerns. All the BP meds were discontinued and scheduled to see [facility] in a week. I discussed about her with Dr Granados and Dr Lanier. The patient asked with Nephrology and I gave Dr lanier her number to call the patient. Patient is discharged with PO levaquin 250mg q48hrs. Disposition: DISCHARGED TO HOME OR SELFCARE Time spent for discharge: 31 minutes - Discharge Diagnoses (1) ARF (acute renal failure) Status: Acute Qualifiers: Acute renal failure type: A (2) CHF (congestive heart failure) Status: Acute Qualifiers: Congestive heart failure type: C Congestive heart failure chronicity: C (3) Elevated troponin level Status: Acute (4) Hepatitis B infection Status: Acute Qualifiers: Viral hepatitis chronicity: V Hepatic coma status: H Hepatitis delta agent presence: H (5) Hypotension Status: Acute Qualifiers: Hypotension type: H Trimester: T (6) Metabolic acidosis Status: Acute Core Measure Documentation - Palliative Care Palliative Care/ Comfort Measures: Not Applicable - Core Measures Any of the following diagnoses?: none Exam - Physical Exam Narrative exam: Not in cardiopulmonary distress. The patient is obese. Vital signs as documented. Head exam is unremarkable. No scleral icterus . Neck is without jugular venous distension, thyromegaly, or carotid bruits. Lungs are clear to auscultation. Cardiac exam reveals regular rate and Rhythm. First and second heart sounds normal. No murmurs, rubs or gallops. Abdominal exam reveals obese abdomen. Extremities are significant for pedal and pretibial edema. 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 No focal weakness. - Constitutional Vitals: Temp Pulse Resp BP Pulse Ox 98.3 F 63 20 90/54 93 10/30/16 04:35 10/30/16 04:35 10/30/16 04:35 10/30/16 04:35 10/30/16 08:18 Plan Activity: fall precautions Weight Bearing Status: Weight Bear as Tolerated Diet: low cholesterol, renal Follow up with: PRIMARY CARE, [Primary Care Provider] - 3-5 Days CONCHA WORKMAN MD [Staff Physician] - 7 Days [facility] [Provider Group] - 7 Days Prescriptions: Bisacodyl [Dulcolax suppos] 10 mg RI QDAY PRN #30 supp.rect PRN Reason: Constipation unrelieved by MOM Levofloxacin [Levaquin] 250 mg PO Q48H #4 tablet Omeprazole 20 mg PO QDAY #14 capsule. oxyCODONE /ACETAMINOPHEN [Percocet 5/325 mg] 1 tab PO Q4H PRN #12 tablet PRN Reason: Pain, Moderate (4-6)
[2016-10-30] MEDS: LEVAQUIN PO SCH (11:02)
[2016-10-30] MEDS: BABY ASPIRIN PO SCH (11:02)
[2016-10-30] MEDS: PROTONIX PO SCH (11:02)
--- NOTE | 2016-10-30 11:05 | Progress Note ---
Assessment and Plan Acute on chronic systolic heart failure - improving. NICMP - EF 30 - 35% on echo 09/2016 SSS s/p PPM CONRAD on CKD Hypotension H/o mitral and tricuspid valve repair (2012) Obesity Recommend continue hemodialysis to maintain euvolemic status for decomp systolic heart failure. Patient in view of low blood pressures unable tolerate beta sukh or MARICEL or ARB, as per the hospitalist patient is being discharged for maintaining hemodialysis an outpatient Subjective Date of service: 10/30/16 Principal diagnosis: CHF Interval history: Patient able to lie down flat in the bed and no shortness of breath Objective Vital Signs Temp Pulse Pulse Pulse Resp BP BP 10/30/16 08:18 10/30/16 04:35 98.3 F 63 20 90/54 10/30/16 04:00 76 10/30/16 01:53 98.0 F 64 20 110/53 10/29/16 22:36 77 99/50 10/29/16 21:33 98.0 F 62 20 88/51 10/29/16 17:10 10/29/16 16:00 98.1 F 85 20 10/29/16 13:30 97.7 F 78 16 113/49 10/29/16 13:15 78 113/49 10/29/16 13:00 61 111/62 10/29/16 12:49 64 110/58 10/29/16 12:30 60 113/53 10/29/16 12:15 53 L 110/60 10/29/16 12:00 78 94/55 10/29/16 11:45 60 95/55 10/29/16 11:30 59 L 93/57 10/29/16 11:15 61 93/52 BP Pulse Ox 10/30/16 08:18 93 10/30/16 04:35 95 10/30/16 04:00 10/30/16 01:53 96 10/29/16 22:36 10/29/16 21:33 96 10/29/16 17:10 100 10/29/16 16:00 102/58 100 10/29/16 13:30 10/29/16 13:15 10/29/16 13:00 10/29/16 12:49 10/29/16 12:30 10/29/16 12:15 10/29/16 12:00 10/29/16 11:45 10/29/16 11:30 10/29/16 11:15 - Physical Examination General: No Apparent Distress HEENT: Positive: PERRL, Normocephaly, Mucus Membranes Moist Neck: Positive: neck supple, trachea midline Cardiac: Positive: Reg Rate and Rhythm Lungs: Positive: clear to auscultation Neuro: Positive: Grossly Intact, Cranial Nerve 2-12 Intact Abdomen: Positive: Unremarkable, Soft, Active Bowel Sounds. Negative: Tender Skin: Positive: Clear. Negative: Rash, Wound Musculoskeletal: No Pain, Normal Range of Motion Extremities: Present: upper extr. pulses, lower extr. pulses. Absent: edema - Labs and Meds Comprehensive Metabolic Panel 10/30/16 Range/Units 06:01 Sodium 138 (137-145) mmol/L Potassium 4.2 (3.6-5.0) mmol/L Chloride 99.0 (98-107) mmol/L Carbon Dioxide 23 (22-30) mmol/L BUN 25 H (7-17) mg/dL Creatinine 5.0 H (0.7-1.2) mg/dL Glucose 68 (65-100) mg/dL Calcium 7.9 L (8.4-10.2) mg/dL - Imaging and Cardiology EKG: report reviewed, image reviewed Echo: report reviewed (09/18/2016: EF 30 - 35%) Cardiac cath: report reviewed (01/2013: normal coronaries, EF 40%) - Telemetry EKG Rhythm: Sinus Rhythm
[2016-10-30] MEDS: COMBIGAN 0.2-0.5% OD SCH ×2 (11:37→22:10)
--- NOTE | 2016-10-30 13:06 | Progress Note ---
Assessment and Plan Assessment and plan: Acute on chronic CHF exacerbation Acute hypoxic respiratory failure Acute on chronic kidney injury Sick sinus syndrome Status post pacemaker placement Hepatitis B surface antigen positive UTI - Fluid overloaded - Hold losartan, digoxin and BB because of hypotension and bradycardia - Cardiology consult appreciated - Nephrology consult appreciated - Patient on hemodialysis - Gram positive rods on urine culture: continue Levaquin - Patient is on 4 L of oxygen Disposition - Plan was to discharge her today but her oxygen was dropping to 57 when she is off oxygen and the plan is to keep her here today and get oxygen tomorrow and discharge her - Patient Problems (1) ARF (acute renal failure) Current Visit: Yes Status: Acute Qualifiers: Acute renal failure type: A (2) CHF (congestive heart failure) Current Visit: Yes Status: Acute Qualifiers: Congestive heart failure type: C Congestive heart failure chronicity: C (3) Elevated troponin level Current Visit: Yes Status: Acute (4) Hepatitis B infection Current Visit: Yes Status: Acute Qualifiers: Viral hepatitis chronicity: V Hepatic coma status: H Hepatitis delta agent presence: H (5) Hypotension Current Visit: Yes Status: Acute Qualifiers: Hypotension type: H Trimester: T (6) Metabolic acidosis Current Visit: Yes Status: Acute History Interval history: patient was seen and evaluated this morning, patient said she is feeling ok. The plan was to discharge her because of O2 sat dropping we'll keep her today and will put a consult for case management to get oxygen and discharged tomorrow. Hospitalist Physical - Physical exam Narrative exam: Not in cardiopulmonary distress. Patient is on oxygen and did drop down to 57 when she is off oxygen. Patient is currently on 4 L. Oxygen The patient is obese. Vital signs as documented. Head exam is unremarkable. No scleral icterus . Neck is without jugular venous distension, thyromegaly, or carotid bruits. Lungs are clear to auscultation. Cardiac exam reveals regular rate and Rhythm. First and second heart sounds normal. No murmurs, rubs or gallops. Abdominal exam reveals obese abdomen. Extremities are significant for pedal and pretibial edema. 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 No focal weakness. - Constitutional Vitals: Temp Pulse Resp BP Pulse Ox 98.3 F 63 20 90/54 93 10/30/16 04:35 10/30/16 04:35 10/30/16 04:35 10/30/16 04:35 10/30/16 08:18 General appearance: Present: mild distress, obese Results - Labs CBC & Chem 7: 10/27/16 06:30 10/30/16 06:01 Labs: Laboratory Last Values WBC 10.3 K/mm3 (4.5-11.0) 10/27/16 06:30 RBC 4.79 M/mm3 (3.65-5.03) 10/27/16 06:30 Hgb 10.9 gm/dl (10.1-14.3) 10/27/16 06:30 Hct 37.1 % (30.3-42.9) 10/27/16 06:30 MCV 78 fl (79-97) L 10/27/16 06:30 MCH 23 pg (28-32) L 10/27/16 06:30 MCHC 29 % (30-34) L 10/27/16 06:30 RDW 19.6 % (13.2-15.2) H 10/27/16 06:30 Plt Count 114 K/mm3 (140-440) L 10/27/16 06:30 [place] % (Auto) Mule Spinner 10/27/16 06:30 Add Manual Diff Complete 10/27/16 06:30 Total Counted 100 10/27/16 06:30 Seg Neuts % (Manual) 89.0 % (40.0-70.0) H 10/27/16 06:30 Band Neutrophils % 0 % 10/27/16 06:30 Lymphocytes % (Manual) 7.0 % (13.4-35.0) L 10/27/16 06:30 Reactive Lymphs % (Man) 0 % 10/27/16 06:30 Monocytes % (Manual) 4.0 % (0.0-7.3) 10/27/16 06:30 Eosinophils % (Manual) 0 % (0.0-4.3) 10/27/16 06:30 Basophils % (Manual) 0 % (0.0-1.8) 10/27/16 06:30 Metamyelocytes % 0 % 10/27/16 06:30 Myelocytes % 0 % 10/27/16 06:30 Promyelocytes % 0 % 10/27/16 06:30 Blast Cells % 0 % 10/27/16 06:30 Nucleated RBC % Not Reportable 10/27/16 06:30 Seg Neutrophils # Man 9.2 K/mm3 (1.8-7.7) H 10/27/16 06:30 Band Neutrophils # 0.0 K/mm3 10/27/16 06:30 Lymphocytes # (Manual) 0.7 K/mm3 (1.2-5.4) L 10/27/16 06:30 Abs React Lymphs (Man) 0.0 K/mm3 10/27/16 06:30 Monocytes # (Manual) 0.4 K/mm3 (0.0-0.8) 10/27/16 06:30 Eosinophils # (Manual) 0.0 K/mm3 (0.0-0.4) 10/27/16 06:30 Basophils # (Manual) 0.0 K/mm3 (0.0-0.1) 10/27/16 06:30 Metamyelocytes # 0.0 K/mm3 10/27/16 06:30 Myelocytes # 0.0 K/mm3 10/27/16 06:30 Promyelocytes # 0.0 K/mm3 10/27/16 06:30 Blast Cells # 0.0 K/mm3 10/27/16 06:30 WBC Morphology Not Reportable 10/27/16 06:30 Hypersegmented Neuts Not Reportable 10/27/16 06:30 Hyposegmented Neuts Not Reportable 10/27/16 06:30 Hypogranular Neuts Not Reportable 10/27/16 06:30 Smudge Cells Not Reportable 10/27/16 06:30 Toxic Granulation Not Reportable 10/27/16 06:30 Toxic Vacuolation Not Reportable 10/27/16 06:30 Dohle Bodies Not Reportable 10/27/16 06:30 Pelger-Huet Anomaly Not Reportable 10/27/16 06:30 Sara Rods Not Reportable 10/27/16 06:30 Platelet Estimate Appears decreased 10/27/16 06:30 Clumped Platelets Not Reportable 10/27/16 06:30 Plt Clumps, EDTA Not Reportable 10/27/16 06:30 Large Platelets Not Reportable 10/27/16 06:30 Giant Platelets Not Reportable 10/27/16 06:30 Platelet Satelliting Not Reportable 10/27/16 06:30 Plt Morphology Comment Not Reportable 10/27/16 06:30 RBC Morphology Not Reportable 10/27/16 06:30 Dimorphic RBCs Not Reportable 10/27/16 06:30 Polychromasia Not Reportable 10/27/16 06:30 Hypochromasia 1+ 10/27/16 06:30 Poikilocytosis Not Reportable 10/27/16 06:30 Anisocytosis Not Reportable 10/27/16 06:30 Microcytosis Not Reportable 10/27/16 06:30 Macrocytosis Not Reportable 10/27/16 06:30 Spherocytes Not Reportable 10/27/16 06:30 Pappenheimer Bodies Not Reportable 10/27/16 06:30 Sickle Cells Not Reportable 10/27/16 06:30 Target Cells Not Reportable 10/27/16 06:30 Tear Drop Cells Not Reportable 10/27/16 06:30 Ovalocytes Not Reportable 10/27/16 06:30 Helmet Cells Not Reportable 10/27/16 06:30 [place] Bodies Not Reportable 10/27/16 06:30 [place] Rings Not Reportable 10/27/16 06:30 [place] Cells Not Reportable 10/27/16 06:30 Bite Cells Not Reportable 10/27/16 06:30 Crenated Cell Not Reportable 10/27/16 06:30 Elliptocytes Not Reportable 10/27/16 06:30 Acanthocytes (Spur) Not Reportable 10/27/16 06:30 Rouleaux Not Reportable 10/27/16 06:30 Hemoglobin C Crystals Not Reportable 10/27/16 06:30 Schistocytes Not Reportable 10/27/16 06:30 Malaria parasites Not Reportable 10/27/16 06:30 [place] Bodies Not Reportable 10/27/16 06:30 Hem Pathologist Commnt No 10/27/16 06:30 PT 16.2 Sec. (12.2-14.9) H 10/24/16 13:11 INR 1.31 (0.87-1.13) H 10/24/16 13:11 APTT 25.6 Sec. (24.2-36.6) 10/24/16 13:11 D-Dimer 5394.25 ng/mlDDU (0-234) H 10/24/16 20:17 Sodium 138 mmol/L (137-145) 10/30/16 06:01 Potassium 4.2 mmol/L (3.6-5.0) 10/30/16 06:01 Chloride 99.0 mmol/L (98-107) 10/30/16 06:01 Carbon Dioxide 23 mmol/L (22-30) 10/30/16 06:01 Anion Gap 20 mmol/L 10/30/16 06:01 BUN 25 mg/dL (7-17) H 10/30/16 06:01 Creatinine 5.0 mg/dL (0.7-1.2) H 10/30/16 06:01 Estimated GFR 10 ml/min 10/30/16 06:01 BUN/Creatinine Ratio 5.00 % 10/30/16 06:01 Glucose 68 mg/dL (65-100) 10/30/16 06:01 Calcium 7.9 mg/dL (8.4-10.2) L 10/30/16 06:01 Phosphorus 8.1 mg/dL (2.5-4.5) H 10/26/16 05:42 Total Bilirubin 0.3 mg/dL (0.1-1.2) 10/27/16 06:30 Direct Bilirubin < 0.2 mg/dL (0-0.2) 10/27/16 06:30 Indirect Bilirubin 0.1 mg/dL 10/26/16 05:45 AST 19 units/L (5-40) 10/27/16 06:30 ALT 17 units/L (7-56) 10/27/16 06:30 Alkaline Phosphatase 45 units/L (35-129) 10/27/16 06:30 Total Creatine Kinase 73 units/L (30-135) 10/24/16 22:47 CK-MB (CK-2) 5.2 ng/mL (0.0-4.0) H 10/24/16 22:47 CK-MB (CK-2) Rel Index 7.1 (0-4) H 10/24/16 22:47 Troponin T 0.124 ng/mL (0.00-0.029) H* 10/25/16 10:33 NT-Pro-B Natriuret Pep > 15042 pg/mL (0-900) H 10/24/16 12:59 Total Protein 5.4 g/dL (6.3-8.2) L 10/27/16 06:30 Albumin 2.6 g/dL (3.9-5) L 10/27/16 06:30 Albumin/Globulin Ratio 0.9 % 10/27/16 06:30 Triglycerides 107 mg/dL (2-149) 10/24/16 12:59 Cholesterol 147 mg/dL (50-199) 10/24/16 12:59 LDL Cholesterol Direct 52 mg/dL (50-130) 10/24/16 12:59 HDL Cholesterol 74 mg/dL (40-59) H 10/24/16 12:59 Cholesterol/HDL Ratio 1.98 % 10/24/16 12:59 Urine Color Yellow (Yellow) 10/25/16 23:30 Urine Turbidity Turbid (Clear) 10/25/16 23:30 Urine pH 5.0 (5.0-7.0) 10/25/16 23:30 Ur Specific [place] 1.023 (1.003-1.030) 10/25/16 23:30 Urine Protein 100 mg/dl mg/dL (Negative) 10/25/16 23:30 Urine Glucose (UA) 50 mg/dL (Negative) 10/25/16 23:30 Urine Ketones Tr mg/dL (Negative) 10/25/16 23:30 Urine Blood Lg (Negative) 10/25/16 23:30 Urine Nitrite Neg (Negative) 10/25/16 23:30 Urine Bilirubin Neg (Negative) 10/25/16 23:30 Urine Urobilinogen < 2.0 mg/dL (<2.0) 10/25/16 23:30 Ur Leukocyte Esterase Mod (Negative) 10/25/16 23:30 Urine WBC (Auto) > 182.0 /HPF (0.0-6.0) H 10/25/16 23:30 Urine RBC (Auto) 134.0 /HPF (0.0-6.0) 10/25/16 23:30 U Epithel Cells (Auto) 6.0 /HPF (0-13.0) 10/25/16 23:30 Urine Bacteria (Auto) 1+ /HPF (Negative) 10/25/16 23:30 Urine WBC Clumps 3+ /HPF 10/25/16 23:30 Urine Mucus 1+ /HPF 10/25/16 23:30 Urine Creatinine 250.2 mg/dL (0.1-20.0) H 10/25/16 23:30 Urine Total Protein 119 mg/dL (5-11.8) H 10/25/16 23:30 Digoxin > 2.0 ng/mL (0.9-2.0) H 10/25/16 10:33 Hep Bs Antigen Reactive (Negative) 10/26/16 05:42 Hepatitis C Antibody Non-reactive (NonReactive) 10/26/16 05:42
[2016-10-30] MEDS: NON-FORMULARY (Rosuvastatin Calcium [Rosuvastatin Calcium] 20 MG) PO SCH (22:09)
[2016-10-31 07:42] LABS: BUN/Creatinine Ratio 5.59; Calcium 7.8 mg/dL (8.4-10.2); Potassium 4.5 mmol/L (3.6-5.0)
--- NOTE | 2016-10-31 11:01 | Progress Note ---
Assessment and Plan (1) ARF (acute renal failure) on underlying CKD III Current Visit: Yes Status: Acute Qualifiers: Acute renal failure type: A Plan to address problem: Acute kidney failure possibly acute cardiorenal syndrome but need to exclude other possible causes especially acute tubular necrosis vs acute interstitial nephritis. No renal recovery yet. Outpatient dialysis arranged. HD today here prior to discharge and plan for starting out pt HD on Monday. (2) Acute on chronic systolic heart failure Current Visit: No Status: Acute Plan to address problem: MARICEL inhibitor on hold due to hypotension. Continue management (3) Metabolic acidosis Current Visit: Yes Status: Acute Plan to address problem: Acidosis improved with dialysis (4) Hypotension Current Visit: Yes Status: Acute Qualifiers: Hypotension type: H Trimester: T Plan to address problem: Blood pressure improving. Off antihypertensives. Continue empiric antibiotics. (6) Urinary tract infection Current Visit: Yes Status: Acute Qualifiers: Urinary tract infection type: U Hematuria presence: H Indwelling urinary catheter type: I Encounter type: E Plan to address problem: Continue antibiotic. Follow-up urine culture (7) Hepatitis B infection Current Visit: Yes Status: Acute Qualifiers: Viral hepatitis chronicity: V Hepatic coma status: H Hepatitis delta agent presence: H Plan to address problem: HD arrangement made with [facility] at HD unit. Discussed with pts daughter at length on 10/30. Subjective Date of service: 10/31/16 Principal diagnosis: CHF Interval history: No new changes. No SOB/CP Objective - Exam Narrative Exam: Obese, Elderly -[place] female lying in bed in no acute distress HEENT normocephalic atraumatic, blind, Neck supple, no thyromegaly no jugular venous distention CVS S1-S2 regular rate rhythm without murmur, rub or gallop Chest Diminished breath sounds lower zones Abdomen soft , flabby, nontender no organomegaly no bruit bowel sounds present Extremities 1+ pitting edema both upper and lower extremities Neuro awake, alert oriented x3 no gross deficit - Vital Signs Vital signs: Vital Signs - 12hr 10/31/16 10/31/16 10/31/16 00:00 02:08 02:15 Temperature 98.3 F 98.2 F Pulse Rate Pulse Rate [ 56 L 60 60 Right Radial] Respiratory 18 18 20 Rate Blood Pressure 80/59 74/41 98/55 [Right Arm] O2 Sat by Pulse 97 97 100 Oximetry 10/31/16 10/31/16 10/31/16 04:00 06:29 08:09 Temperature 98.5 F Pulse Rate 85 85 Pulse Rate [ 39 L Right Radial] Respiratory 18 Rate Blood Pressure 101/55 [Right Arm] O2 Sat by Pulse 97 Oximetry 10/31/16 10/31/16 08:21 10:10 Temperature 98.3 F Pulse Rate Pulse Rate [ 59 L Right Radial] Respiratory 16 Rate Blood Pressure 98/56 [Right Arm] O2 Sat by Pulse 98 97 Oximetry - Lab 10/27/16 06:30 10/31/16 06:43 Most recent lab results Calcium 7.8 mg/dL (8.4-10.2) L 10/31/16 06:43 Phosphorus 8.1 mg/dL (2.5-4.5) H 10/26/16 05:42 Urine Creatinine 250.2 mg/dL (0.1-20.0) H 10/25/16 23:30 Urine Total Protein 119 mg/dL (5-11.8) H 10/25/16 23:30
[2016-10-31] MEDS ORDERED: NACL 0.9% 100 ML IV PRN (11:15)
[2016-10-31] MEDS ORDERED: HEPARIN 10,000 UNITS/10 ML IV PRN (11:15)
[2016-10-31] MEDS: COMBIGAN 0.2-0.5% OD SCH ×2 (13:29→22:53)
[2016-10-31] MEDS: BABY ASPIRIN PO SCH (13:29)
[2016-10-31] MEDS: PROTONIX PO SCH (13:29)
[2016-10-31] MEDS ORDERED: NACL 0.9 (PRIMING MACHINE ONLY DIALYSIS) MC ONE (17:26)
[2016-10-31] MEDS ORDERED: HEPARIN IV PRN (17:31)
[2016-10-31] MEDS: NON-FORMULARY (Rosuvastatin Calcium [Rosuvastatin Calcium] 20 MG) PO SCH (22:54)
[2016-11-01 08:16] LABS: BUN/Creatinine Ratio 5.65; Calcium 7.8 mg/dL (8.4-10.2); Chloride 100.7 mmol/L (98-107)
[2016-11-01 08:39] LABS: Potassium 4.7 mmol/L (3.6-5.0)
--- NOTE | 2016-11-01 09:24 | Progress Note ---
Assessment and Plan (1) ARF (acute renal failure) on underlying CKD III Current Visit: Yes Status: Acute Qualifiers: Acute renal failure type: A Plan to address problem: Acute kidney failure possibly acute cardiorenal syndrome but need to exclude other possible causes especially acute tubular necrosis vs acute interstitial nephritis. No renal recovery yet. Outpatient dialysis arranged. HD today here prior to discharge and plan for starting out pt HD on Monday. (2) Acute on chronic systolic heart failure Current Visit: No Status: Acute Plan to address problem: MARICEL inhibitor on hold due to hypotension. Continue management (3) Metabolic acidosis Current Visit: Yes Status: Acute Plan to address problem: Acidosis improved with dialysis (4) Hypotension Current Visit: Yes Status: Acute Qualifiers: Hypotension type: H Trimester: T Plan to address problem: Blood pressure improving. Off antihypertensives. Continue empiric antibiotics. (6) Urinary tract infection Current Visit: Yes Status: Acute Qualifiers: Urinary tract infection type: U Hematuria presence: H Indwelling urinary catheter type: I Encounter type: E Plan to address problem: Continue antibiotic. Follow-up urine culture (7) Hepatitis B infection Current Visit: Yes Status: Acute Qualifiers: Viral hepatitis chronicity: V Hepatic coma status: H Hepatitis delta agent presence: H Plan to address problem: HD arrangement made with [facility] at HD unit. Discussed with pts daughter at length on 10/30. Subjective Date of service: 11/01/16 Principal diagnosis: CHF Interval history: No SOB/CP Objective - Exam Narrative Exam: Obese, Elderly -[place] female lying in bed in no acute distress HEENT normocephalic atraumatic, blind, Neck supple, no thyromegaly no jugular venous distention CVS S1-S2 regular rate rhythm without murmur, rub or gallop Chest Diminished breath sounds lower zones Abdomen soft , flabby, nontender no organomegaly no bruit bowel sounds present Extremities 1+ pitting edema both upper and lower extremities Neuro awake, alert oriented x3 no gross deficit - Vital Signs Vital signs: Vital Signs - 12hr 10/31/16 10/31/16 10/31/16 22:00 22:04 22:55 Temperature Pulse Rate 62 Pulse Rate [ Right Radial] Respiratory 20 Rate Blood Pressure [Left Arm] Blood Pressure [Right Arm] O2 Sat by Pulse 97 Oximetry 11/01/16 11/01/16 11/01/16 00:51 01:00 04:00 Temperature 98.4 F 98.1 F Pulse Rate Pulse Rate [ 76 43 L Right Radial] Respiratory 18 18 Rate Blood Pressure 88/56 87/43 [Left Arm] Blood Pressure 78/44 [Right Arm] O2 Sat by Pulse 97 97 Oximetry 11/01/16 08:16 Temperature Pulse Rate Pulse Rate [ Right Radial] Respiratory Rate Blood Pressure [Left Arm] Blood Pressure [Right Arm] O2 Sat by Pulse 92 Oximetry - Lab 10/27/16 06:30 11/01/16 06:12 Most recent lab results Calcium 7.8 mg/dL (8.4-10.2) L 11/01/16 06:12 Phosphorus 8.1 mg/dL (2.5-4.5) H 10/26/16 05:42 Urine Creatinine 250.2 mg/dL (0.1-20.0) H 10/25/16 23:30 Urine Total Protein 119 mg/dL (5-11.8) H 10/25/16 23:30
[2016-11-01] MEDS: LEVAQUIN PO SCH (10:08)
[2016-11-01] MEDS: PROTONIX PO SCH (10:08)
[2016-11-01] MEDS: COMBIGAN 0.2-0.5% OD SCH (10:08)
[2016-11-01] MEDS: BABY ASPIRIN PO SCH (10:08)
[2016-11-01 10:29] VITALS: BP 103/51
== END 2016-11-01 12:43 | disposition home or self-care (01) | DRG 291 ==
LOC: ED 12:03 → 4A 14:42
PROVIDERS: ADMIT Internal Medicine; ATTEND Internal Medicine
PROC: 02H633Z Insertion of Infusion Device into Right Atrium, Percutaneous Approach (ICD-10-PCS; principal; 2016-10-26)
PROC: B5131ZA Fluoroscopy of Right Jugular Veins using Low Osmolar Contrast, Guidance (ICD-10-PCS; 2016-10-26)
PROC: 5A1D60Z (ICD-10-PCS; 2016-10-31)
DX: I13.0 Hypertensive heart and chronic kidney disease with heart failure and stage 1 through stage 4 chronic kidney disease, or unspecified chronic kidney disease (principal); I50.23 Acute on chronic systolic (congestive) heart failure; J96.01 Acute respiratory failure with hypoxia; N17.9 Acute kidney failure, unspecified; E87.2 Acidosis; N39.0 Urinary tract infection, site not specified; B19.10 Unspecified viral hepatitis B without hepatic coma; I42.9 Cardiomyopathy, unspecified; N18.3 Chronic kidney disease, stage 3 (moderate); Z79.82 Long term (current) use of aspirin; H54.8 Legal blindness, as defined in USA; F17.200 Nicotine dependence, unspecified, uncomplicated; K21.9 Gastro-esophageal reflux disease without esophagitis; E78.5 Hyperlipidemia, unspecified; Z82.49 Family history of ischemic heart disease and other diseases of the circulatory system; E66.9 Obesity, unspecified; Z68.36 Body mass index [BMI] 36.0-36.9, adult; Z95.0 Presence of cardiac pacemaker; Z80.9 Family history of malignant neoplasm, unspecified; Z88.2 Allergy status to sulfonamides; Z88.8 Allergy status to other drugs, medicaments and biological substances; I95.9 Hypotension, unspecified
CPT/HCPCS: 36415; 36558; 71010; 76770; 76937; 77001; 80048; 80061; 80074; 80162; 81001; 82550; 82553; 82570; 83880; 84100; 84156; 84484; 85007; 85014; 85018; 85025; 85379; 85610; 85730; 86705; 86706; 86803; 87040; 87076; 87086; 87186; 93005; 93010; 94760; 96374; A9270-GY; C1750; J0690; J0885; J1644; J1940; J2405; J7030; J7040; J7050; P9047